=== PATIENT | male | born 1990 | race Caucasian/White ===

== ENCOUNTER 2019-10-22 12:57 | Emergency (ER) | payer BC, SELFPAY ==
[2019-10-22 13:04] VITALS: BP 137/88; PULSE 81; RESP 16; TEMP 36.7; O2SAT 99
--- NOTE | 2019-10-22 13:30 | ED.BACK ---
HPI - Back Pain/Injury General Chief Complaint: Back Pain/Injury Stated Complaint: pain from neck to legs Time Seen by Provider: 10/22/19 13:22 Source: patient and RN notes reviewed Mode of arrival: ambulatory Limitations: no limitations History of Present Illness HPI Narrative: Patient presents today complaining of pain to the left neck and left hip radiating to the left foot. Last night he fell headfirst down some stairs at home and his fall was halted when his foot caught on a stair. Denies head injury or loss of consciousness.Denies numbness or tingling in the extremities. Denies any loss of bowel or bladder control. Denies headache, dizziness, vision changes, nausea or vomiting. He currently rates his neck and hip pain 7/10, which increases with movement. He has not tried any [id number] medications at home, however, was given an unknown muscle relaxer by family member and states it did help last night. MD elicited complaint: back pain and fall Related Data Allergies Allergy/AdvReac Type Severity Reaction Status Date / Time No Known Allergies Allergy Verified 10/22/19 13:12 Review of Systems Review of Systems: Narrative: CONSTITUTIONAL: Denies body aches, fever, chills, or sweats. EYES: Denies visual changes, redness, or discharge. ENT: Denies rhinorrhea, congestion, sore throat, or otalgia. CARDIOVASCULAR: Denies chest pain, palpitations, or edema. RESPIRATORY: Denies cough or dyspnea. GASTROINTESTINAL: Denies abdominal pain, nausea, vomiting, or diarrhea. GENITOURINARY: Denies dysuria or hematuria. SKIN: Denies rash, itching, or wounds. MUSCULOSKELETAL:+Neck pain, left hip pain NEUROLOGIC: Denies headache, numbness, tingling, or weakness. PSYCH: Denies depression or anxiety. PMFSH Comments At time of signature, I have reviewed and agree with nursing past medical, surgical, social and family history unless otherwise noted. Please see nursing chart for further information. There is no relevant family history pertinent to the presenting complaint Exam Narrative: Exam Narrative: GENERAL: Well-appearing, well-nourished, and in no acute distress. HEAD: Normocephalic, atraumatic. EYES: EOMI. PERRL. No redness or drainage. Conjunctivae normal. ENT: Mucous membranes pink and moist. NECK: Normal AROM. Supple. No lymphadenopathy. Left cervical paraspinal muscle tenderness that extends to superior shoulder. Full range of motion of the shoulder with slight increased pain in the neck. Distal sensation intact. Capillary refill normal. Radial pulse normal. Hand service loss control consultant equal and strong. CHEST: No respiratory distress. Clear to auscultation. HEART: Regular rate and rhythm. No murmur appreciated. Normal peripheral pulses. ABDOMEN: Soft, nontender, nondistended, normal active bowel sounds. MUSCULOSKELETAL: No bony or muscular tenderness of the thoracic or lumbar spine. Patient some mild tenderness to the lateral left hip. Decreased AROM due to severe pain with full extension of the knee and flexion of the hip. No ecchymosis or swelling noted.Distal sensation intact. Saddle sensation intact. Capillary refill normal. Pedal pulses normal. Foot push and pulls equal and strong. EXTREMITIES: Normal range of motion. No edema. SKIN: Warm, dry, no rash. Capillary refill normal. Normal skin turgor. NEURO: No focal deficits. Alert and oriented x3. Gait steady. PSYCH: Normal affect. No signs of depression or anxiety. Course Vital Signs Vital signs: Vital Signs Temperature 98.1 F 10/22/19 13:04 Pulse Rate 81 10/22/19 13:04 Respiratory Rate 16 10/22/19 13:04 Blood Pressure 137/88 10/22/19 13:04 Pulse Oximetry 99 10/22/19 13:04 Temperature 98.1 F 10/22/19 13:04 Pulse Rate 81 10/22/19 13:04 Respiratory Rate 16 10/22/19 13:04 Blood Pressure 137/88 10/22/19 13:04 Pulse Oximetry 99 10/22/19 13:04 Reviewed. Pt has been instructed to follow up with his PCP regarding his elevated blood press
== END 2019-10-22 13:36 | disposition home or self-care (01) ==
PROVIDERS: Emergency Provider Nurse Practitioner
DX: S16.1XXA Strain of muscle, fascia and tendon at neck level, initial encounter (principal); S76.012A Strain of muscle, fascia and tendon of left hip, initial encounter; M54.32 Sciatica, left side; W10.9XXA Fall (on) (from) unspecified stairs and steps, initial encounter
CPT/HCPCS: 99213; G0463

== ENCOUNTER 2020-02-18 08:53 | Emergency (ER) | payer BC, SELFPAY ==
--- NOTE | ~2020-02-18 | CT_ITS ---
EXAMINATION: CT abdomen pelvis w con DATE: 02/18/2020 09:51 INDICATION: Left lower quadrant abdominal pain, nausea and vomiting. TECHNIQUE: Computed tomography (CT) of the abdomen and pelvis was performed with 100 mL Omnipaque-350 intravenous contrast. Automated exposure control and iterative reconstruction technique were employe d. The dose-length product was 385.86 mGy-cm. COMPARISON: None FINDINGS: Lower lung zones are clear. Heart size is normal. No pericardial or pleural effusion. Liver, gallblad ekta, spleen, pancreas, bilateral adrenal glands and right kidney are normal. 3 mm obstructing stone i n the distal left ureter approximately 2.5 cm from the ureterovesicular junction with mild left hydro ureteronephrosis, minimal left perinephric stranding and delayed left nephrogram. There is an additio nal 5 mm stone in a lower pole calyx of the left kidney. Bowels including the appendix are normal. Bl adder is normal. No free intraperitoneal gas or fluid. No pathologically enlarged abdominal or pelvic lymphadenopathy. Mild bilateral hip osteoarthritis. Small bone island at the right femoral head. IMPRESSION: 1. Left nephrolithiasis with obstructing 3 mm distal left ureteral stone and mild left hydroureterone phrosis. Correlate with urinalysis to exclude associated urinary tract infection. Reviewed, dictated and finalized at location B. IMPRESSION: 1. Left nephrolithiasis with obstructing 3 mm distal left ureteral stone and mi ld left hydroureteronephrosis. Correlate with urinalysis to exclude associated urinary tract infection.
[2020-02-18 09:11] VITALS: BP 143/99; PULSE 90; RESP 16; TEMP 36.1; O2SAT 97
[2020-02-18 09:18] LABS: Basophils Absolute Auto 0.1 K/mm3 (0.0-0.1); Basophils Percent Auto 0.5 % (0.2-1.2); Eosinophils Absolute Auto 0.1 K/mm3 (0-0.3); Eosinophils Percent Auto 0.5 % (0-4.4); Hematocrit 45.7 % (42.0-52.0); Hemoglobin 15.9 g/dL (14.0-18.0); Immature Granulocyte Percent A 0.9 % (0-0.5); Lymphocytes Absolute Auto 1.72 K/mm3 (0.9-3.2); Lymphocytes Percent Auto 15.6 % (18.3-44.2); Mean Corpuscular HGB Conc 34.8 g/dl (32-36); Mean Corpuscular Hemoglobin 28.9 pg (26-34); Mean Corpuscular Volume 82.9 fl (80-100); Mean Platelet Volume 10.1 fl (7.4-10.4); Monocytes Absolute Auto 0.7 K/mm3 (0.1-0.6); Monocytes Percent Auto 6.7 % (2.6-8.5); Neutrophils Absolute Auto 8.3 K/mm3 (1.3-6.7); Neutrophils Percent Auto 75.8 % (45.5-73.1); Platelet Count Result 204 k/mm3 (150-375); Red Blood Count 5.51 M/mm3 (4.6-6.20); Red Cell Distribution Width 11.9 % (11.5-14.5)
[2020-02-18 09:30] LABS: Alanine Aminotransferase 45 U/L (4-50); Albumin Level 4.5 g/dL (3.5-5.1); Alkaline Phosphatase 83 U/L (38-126); Anion Gap 9 mmol/L (8-16); Aspartate Amino Transferase 28 U/L (17-59); Bilirubin,Total 0.6 mg/dL (0.2-1.3); Blood Urea Nitrogen 12 mg/dL (9-20); Carbon Dioxide 27 mmol/L (22-30); Chloride 101 mmol/L (98-107); Estimated CRCL calculation 84 ml/min; Estimated Glomerular Filt Rate > 60; Glucose 125 mg/dL (75-110); Lipase 68 U/L (23-300); Potassium 4.1 mmol/L (3.4-5.0); Sodium 137 mmol/L (137-145)
--- NOTE | 2020-02-18 10:03 | ED.GENADULT ---
HPI - General Adult General Chief complaint: Abdominal Pain Stated complaint: poss kidney stone Time Seen by Provider: 02/18/20 09:05 Source: patient Mode of arrival: ambulatory Limitations: no limitations History of Present Illness HPI narrative: Left lower quadrant pain started at 1 AM. Radiating to left testicle and penis, patient had similar symptoms 2 weeks ago with a diagnosis of kidney stone. Patient reports no fever, no chills, he reports nausea and vomiting. Patient does not take medication at home. Related Data Allergies Allergy/AdvReac Type Severity Reaction Status Date / Time No Known Allergies Allergy Verified 02/18/20 09:17 Review of Systems Review of Systems: Narrative: CONSTITUTIONAL: Denies fever, chills, or sweats. EYES: Denies visual changes, redness, or discharge. ENT: Denies rhinorrhea, congestion, sore throat, or otalgia. CARDIOVASCULAR: Denies chest pain, palpitations, or edema. RESPIRATORY: Denies cough or dyspnea. GASTROINTESTINAL: Denies abdominal pain, nausea, vomiting, or diarrhea. GENITOURINARY: Denies dysuria or hematuria. SKIN: Denies rash or itching. MUSCULOSKELETAL: Denies back pain, joint pain, or myalgia. NEUROLOGIC: Denies headache, numbness, or weakness. PSYCHIATRIC: Denies anxiety or depression. [facility] Past Medical History Medical History (Updated 02/18/20 @ 10:07 by Mil Brower MD) Kidney stone Social History Social History (Updated 02/18/20 @ 10:05 by Mil Brower MD) Social History: Denies smoking or drinking Smoking status: Never smoker Second hand tobacco smoke exposure: No Alcohol intake: never Substance use: never Exam Narrative: Exam Narrative: General appearance: Well-developed, well-nourished Skin: Normal color Head: Normocephalic, nontraumatic Eyes: Clear conjunctiva ENT: Oropharynx normal, ears normal, nose normal Neck: Supple, nontender Chest and respiratory: Airway patent, no respiratory distress, no accessory muscle use Heart: Regular rate/rhythm Abdomen: Soft, mild tenderness left lower quadrant and left flank, no organomegaly, quiet bowel sounds Vascular: Normal peripheral pulses, normal capillary refill. 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, no gross motor deficit Course Course Emergency Course: Stable, improving Vital Signs Vital signs: Vital Signs Temperature 36.1 C L 02/18/20 09:11 Pulse Rate 90 02/18/20 09:11 Respiratory Rate 16 02/18/20 09:11 Blood Pressure 143/99 H 02/18/20 09:11 Pulse Oximetry 97 02/18/20 09:11 Temperature 36.1 C L 02/18/20 09:11 Pulse Rate 90 02/18/20 09:11 Respiratory Rate 16 02/18/20 09:11 Blood Pressure 143/99 H 02/18/20 09:11 Pulse Oximetry 97 02/18/20 09:11 Medical Decision Making MDM Narrative Medical decision making narrative: Kidney stone is my concern Labs, UA, CT abdomen and pelvis, IV Toradol and Zofran ordered. Further plan to follow Differential Diagnosis Differential Diagnosis: Kidney stone, constipation, urinary tract infection Vital Signs Vital Signs: Vital Signs Temperature 36.1 C L 02/18/20 09:11 Pulse Rate 90 02/18/20 09:11 Respiratory Rate 16 02/18/20 09:11 Blood Pressure 143/99 H 02/18/20 09:11 Pulse Oximetry 97 02/18/20 09:11 Temperature 36.1 C L 02/18/20 09:11 Pulse Rate 90 02/18/20 09:11 Respiratory Rate 16 02/18/20 09:11 Blood Pressure 143/99 H 02/18/20 09:11 Pulse Oximetry 97 02/18/20 09:11 Lab Data Result diagrams: 02/18/20 09:11 02/18/20 09:11 Labs: Lab Results 02/18/20 02/18/20 Range/Units 09:11 09:11
[2020-02-18] MEDS: KETOROLAC 30 MG/ML VIAL (*BKC) IV PUSH (10:16)
[2020-02-18] MEDS: ONDANSETRON INJ 4 MG/2 ML VIAL IV PUSH (10:16)
[2020-02-18 10:55] LABS: Add Urine Microscopic? YES; Appearance Urine Clear (Clear); Bacteria Urine Trace /hpf; Bilirubin Urine Negative (Negative); Blood Urine 3+ (Negative); Calcium Oxalate Crystals Urine Present /hpf; Color Urine Yellow (Yellow); Glucose Urine UA Negative (Negative); Ketones Urine Negative (Negative); Leukocyte Esterase Ur Trace LEU/UL (Negative); Mucus Urine Few /lpf; Nitrate Urine Negative (Negative); Protein Urine 1+ mg/dL (Negative); RBC Urine 21-50 /hpf (0-2); Squamous Epithelial Cell Urine Rare /hpf (Few); Urobilinogen Urine Negative mg/dL (<2.0)
[2020-02-18 10:56] LABS: Specific Grav Ur 1.057 (1.001-1.035)
== END 2020-02-18 10:47 | disposition home or self-care (01) ==
PROVIDERS: Emergency Provider Emergency Medicine
DX: N13.2 Hydronephrosis with renal and ureteral calculous obstruction (principal)
CPT/HCPCS: 36415; 74177; 80053; 81001; 83690; 85025; 87086; 96374; 96375; 99284; J1885; J2405; Q9967

== ENCOUNTER 2021-09-30 11:03 | Emergency (ER) | payer BC, SELFPAY ==
--- NOTE | 2021-09-30 11:04 | ED.FEVER ---
HPI - Fever General Chief Complaint: Upper Respiratory Infection Stated Complaint: fever Time Seen by Provider: 09/30/21 11:22 Source: patient and RN notes reviewed Mode of arrival: ambulatory Limitations: no limitations History of Present Illness HPI Narrative: 31-year-old male presents with concern for fever, headache, nasal congestion, body aches that started overnight. He reports his son has similar symptoms. He denies cough or shortness of breath. Denies nausea, vomiting, diarrhea. MD elicited complaint: fever Related Data Home Medications Medication Instructions Recorded Confirmed tramadol mg 09/30/21 Allergies Allergy/AdvReac Type Severity Reaction Status Date / Time No Known Allergies Allergy Verified 02/18/20 09:17 Review of Systems Review of Systems: CONSTITUTIONAL: Reports malaise, fever. EYES: Denies visual changes, redness, or discharge. ENT: Reports rhinorrhea, congestion. Denies sinus pain, otalgia or sore throat. CARDIOVASCULAR: Denies chest pain, palpitations, or edema. RESPIRATORY: Denies cough or dyspnea. GASTROINTESTINAL: Denies nausea, vomiting, diarrhea, MUSCULOSKELETAL: Reports myalgia. NEUROLOGIC: Reports headache. All systems reviewed & are unremarkable except as noted in HPI and below PMFSH Past Medical History Medical History (Updated 09/30/21 @ 11:32 by Tahmina Cordero NP) Kidney stone Social History Social History (Updated 02/18/20 @ 10:05 by Mil Brower MD) Social History: Denies smoking or drinking Smoking status: Never smoker Second hand tobacco smoke exposure: No Alcohol intake: never Substance use: never Comments At time of signature, agree with nursing past medical, surgical, social and family history. There is no relevant family history pertinent to the presenting complaint Exam Narrative: GENERAL: Nontoxic-appearing and in no acute distress. HEAD: Normocephalic EYES: PERRLA, conjunctivae clear, sclera injected bilaterally ENT: Nares clear, clear discharge. Mucous membranes moist. TM pearly vogt with dull light reflex bilaterally; no tragal tenderness. Oropharynx not erythematous without lesions. Tonsils not enlarged and without exudate, no drooling, no hoarseness, no trismus, uvula midline. NECK: Supple. No lymphadenopathy CHEST: Clear to auscultation, breath sounds equal. No wheezing, rhonchi, rales, or stridor. No respiratory distress, speaks in full sentences. HEART: Regular rate and rhythm. No murmur heard. SKIN: Warm, dry, no rash. NEURO: Alert and oriented x3. PSYCH: Normal mood and affect Course Course Emergency Course: Patient is aware of diagnosis, understands and agrees to treatment plan. Anticipatory guidance given. Patient agrees to follow-up as directed and is aware of reasons to seek care at the emergency department. Portions of this record may have been created with voice recognition software Level of Care: Express Care Visit Vital Signs Vital signs: Reviewed. MDM - Fever MDM Narrative Medical decision making narrative: Differential diagnosis considered: Gomes virus, strep pharyngitis, allergic rhinitis, upper respiratory tract infection, sinusitis, rhinosinusitis, nasopharyngitis. viral pharyngitis, otitis media, otitis externa, pneumonia, bronchitis, viral cough syndrome, viral syndrome, and influenza. Exam findings show no acute concerns or changes; patient is non-toxic appearing and is in no distress. Patient is appropriate for outpatient treatment and follow-up. Lab Data Attestation: I reviewed the patient's lab results. Critical Care Time Critical Care Time Critical Care Time: No Discharge Plan Discharge Clinical Impression: Influenza A Patient Disposition: Home, Self-Care Condition: Stable Instructions: Influenza (ED) Additional Instructions: -Your symptoms are likely caused by a virus, and antibiotic does not cure viral illness. -Take strict precautions to prevent the spread of your virus. Be dili
[2021-09-30 11:10] VITALS: BP 124/71; PULSE 95; RESP 16; TEMP 36.6; O2SAT 98
== END 2021-09-30 11:41 | disposition home or self-care (01) ==
PROVIDERS: Emergency Provider Nurse Practitioner
DX: J10.1 Influenza due to other identified influenza virus with other respiratory manifestations (principal)
CPT/HCPCS: 87804; 99213; G0463

== ENCOUNTER 2022-01-04 14:54 | Emergency (ER) | payer BC, SELFPAY ==
[2022-01-04 15:39] VITALS: BP 144/73; PULSE 81; RESP 16; TEMP 36.6; O2SAT 100
--- NOTE | 2022-01-04 16:11 | ED.GENADULT ---
HPI - General Adult General Chief complaint: Nausea/Vomiting/Diarrhea Stated complaint: Vomiting, body ache Source: patient Limitations: no limitations History of Present Illness HPI narrative: Patient presents for evaluation of sick symptoms since yesterday. Symptoms include body aches, nausea nonproductive cough. He denies any fever, chills, vomiting, diarrhea, sore throat, shortness of breath. No recent sick contacts. He had COVID in October of this year. He has not been vaccinated for COVID. He is not taking any medications to assist with his symptoms. He missed work yesterday and is planning on taking off the rest of his work week through . He needs a note to excuse him from work. Related Data Allergies Allergy/AdvReac Type Severity Reaction Status Date / Time No Known Allergies Allergy Verified 01/04/22 15:46 Review of Systems Review of Systems: CONSTITUTIONAL: Denies fever, chills, or sweats. EYES: Denies visual changes, redness, or discharge. ENT: Denies rhinorrhea, congestion, sore throat, or otalgia. CARDIOVASCULAR: Denies chest pain, palpitations, or edema. RESPIRATORY: Reports cough. Denies shortness of GASTROINTESTINAL: Reports nausea. Denies abdominal pain, vomiting, or diarrhea. GENITOURINARY: Denies dysuria or hematuria. SKIN: Denies rash or itching. MUSCULOSKELETAL: Reports generalized body aches NEUROLOGIC: Denies headache, numbness, dizziness, or weakness. PSYCHIATRIC: Denies anxiety or depression. [facility] Past Medical History Medical History (Updated 01/04/22 @ 16:15 by GIOVANY Flowers, ) Kidney stone Surgical History Surgical History No pertinent past surgical history Family History Family History Mother Family history non-contributory Social History Social History Social History: Denies smoking or drinking Smoking status: Never smoker Second hand tobacco smoke exposure: No Alcohol intake: never Substance use: current Substance use type: marijuana Other substance usage details: social Living arrangements: with family Gender identity (if verbalized by the patient): Male Sexual Orientation (if Verbalized by the Patient): Straight or Heterosexual Spiritual care concerns: No Exam Narrative: GENERAL: Well-appearing, well-nourished, and in no acute distress. HEAD: Normocephalic, atraumatic. EYES: PERRLA and EOMI. ENT: Nares clear, no rhinorrhea or epistaxis. Mucous membranes moist. Oropharynx without tonsillar hypertrophy exudate or other lesions. Bilateral TMs pearly vogt nonbulging NECK: Supple. No adenopathy or masses. No carotid bruits or JVD CHEST: Clear to auscultation. No respiratory distress. No wheezes rales or rhonchi HEART: Regular rate and rhythm. No murmur heard. Normal peripheral pulses. ABDOMEN: Soft, nontender, nondistended, normal active bowel sounds. EXTREMITIES: Normal range of motion. No edema. SKIN: Warm, dry, no rash. NEURO: No focal deficits. Alert and oriented x3. PSYCH: Normal mood and affect. Course Course Emergency Course: This is a 31-year-old male that presented with complaints of sick symptoms. COVID and influenza were negative. Exam is consistent with acute viral syndrome. Will DC with Zofran and ibuprofen. Increase hydration. Follow-up outpatient for further evaluation and treatment return for worsening symptoms. Patient in agreement with plan of care. Level of Care: Express Care Visit Vital Signs Vital signs: Vital Signs Temperature 36.6 C 01/04/22 15:39 Pulse Rate 81 01/04/22 15:39 Respiratory Rate 16 01/04/22 15:39 Blood Pressure 144/73 H 01/04/22 15:39 Pulse Oximetry 100 01/04/22 15:39 Oxygen Delivery Room Air 01/04/22 15:39 Temperature 36.6 C 01/04/22 15:39 Pulse Rate 81 01/04/22 15:39 Res
== END 2022-01-04 16:19 | disposition home or self-care (01) ==
PROVIDERS: Emergency Provider Nurse Practitioner
DX: B34.9 Viral infection, unspecified (principal); Z20.822 Contact with and (suspected) exposure to COVID-19; Z86.16 Personal history of COVID-19
CPT/HCPCS: 87426; 87804; 99213; C9803; G0463

== ENCOUNTER 2022-01-24 13:08 | Emergency (ER) | payer BC, SELFPAY ==
[2022-01-24 13:12] VITALS: BP 137/76; PULSE 68; RESP 18; TEMP 36.3; O2SAT 100
--- NOTE | 2022-01-24 13:32 | ED.NAVMDI ---
HPI - Nausea/Vomiting/Diarrhea General Chief complaint: Nausea/Vomiting/Diarrhea Stated complaint: nausea diarhhea Time Seen by Provider: 01/24/22 13:33 Source: patient, family, RN notes reviewed and old records reviewed Mode of arrival: ambulatory Limitations: no limitations History of Present Illness HPI Narrative: 31 year old male who [facility] with complaints of nausea vomiting and diarrhea since early in the morning with last episode of nausea and vomiting diarrhea at 0600. Patient states that he and his significant other ate meat lovers pizza at local establishment last evening and they both have had nausea vomiting and diarrhea. Patient denies any fevers, chills or sweat, voices some abdominal cramping, Patient repots that he has taken some Pepto Bismol for his diarrhea and he states that he had some Zofran left over from when he had kidney stone which he took for the nausea and vomiting. MD elicited complaint: nausea, vomiting and diarrhea Description of diarrhea: watery Associated nausea: Yes Related Data Home Medications Medication Instructions Recorded Confirmed hydrocodone 5 mg-acetaminophen 325 1 tablet PO Q6-8H KIDNEY STONES 01/24/22 01/24/22 mg tablet tamsulosin 0.4 mg capsule 0.4 mg PO DAILY KIDNEY STONES 01/24/22 01/24/22 Allergies Allergy/AdvReac Type Severity Reaction Status Date / Time No Known Allergies Allergy Verified 01/24/22 13:19 Review of Systems Review of Systems: CONSTITUTIONAL: Denies fever, chills, or sweats. EYES: Denies visual changes, redness, or discharge. ENT: Denies rhinorrhea, congestion, sore throat, or otalgia. CARDIOVASCULAR: Denies chest pain, palpitations, or edema. RESPIRATORY: Denies cough or dyspnea. GASTROINTESTINAL: Positive abdominal cramping, nausea, vomiting, or diarrhea. GENITOURINARY: Denies dysuria or hematuria. SKIN: Denies rash or itching. MUSCULOSKELETAL: Denies back pain, joint pain, or myalgia. NEUROLOGIC: Denies headache, numbness, or weakness. PSYCHIATRIC: Denies anxiety or depression. All systems reviewed & are unremarkable except as noted in HPI and below PMFSH Past Medical History Medical History (Updated 01/25/22 @ 08:53 by Emelyn Andino NP) Eczema Kidney stone Surgical History Surgical History No pertinent past surgical history Family History Family History Mother Family history non-contributory Social History Social History Social History: Denies smoking or drinking Smoking status: Never smoker Second hand tobacco smoke exposure: No Alcohol intake: never Substance use: current Substance use type: marijuana Other substance usage details: social Gender identity (if verbalized by the patient): Male Sexual Orientation (if Verbalized by the Patient): Straight or Heterosexual Spiritual care concerns: No Comments At time of signature, agree with nursing past medical, surgical, social and family history. There is no relevant family history pertinent to the presenting complaint Exam Narrative: GENERAL: Well-appearing, well-nourished, and in no acute distress. HEAD: Normocephalic, atraumatic. EYES: PERRLA and EOMI. ENT: Nares clear, no rhinorrhea or epistaxis. Mucous membranes moist.TM's normal, throat pink with no lesions or exudates or tonsil swelling NECK: Supple. no lymphadenopathy CHEST: Clear to auscultation. No respiratory distress.SAO2 100% on room air HEART: Regular rate and rhythm. No murmur heard. Normal peripheral pulses. ABDOMEN: Soft, nontender tp palpation no right sided abdominal pain, some cramping with diarrhea reported, nondistended, normal active bowel sounds. EXTREMITIES: Normal range of motion. No edema. SKIN: Warm, dry, no rash. NEURO: No focal deficits. Alert and oriented x3. Course Course Level of Care: Express
== END 2022-01-24 13:50 | disposition home or self-care (01) ==
PROVIDERS: Emergency Provider Registered Nurse
DX: K52.9 Noninfective gastroenteritis and colitis, unspecified (principal)
CPT/HCPCS: 99213; G0463

== ENCOUNTER 2022-03-21 12:52 | Emergency (ER) | payer BC, SELFPAY ==
[2022-03-21 13:02] VITALS: BP 153/81; PULSE 91; RESP 16; TEMP 36.7; O2SAT 100
--- NOTE | 2022-03-21 13:37 | ED.URI ---
HPI - URI/Sore Throat General Chief Complaint: Upper Respiratory Infection Stated Complaint: Bodyache/Sinus Congestion Time Seen by Provider: 03/21/22 13:38 Source: patient and RN notes reviewed Mode of arrival: ambulatory Limitations: no limitations History of Present Illness HPI Narrative: 31-year-old male presented for complaint of sinus pressure and congestion for 5 days. Endorses some body aches, difficulty sleeping and sore throat. He has been taking NyQuil for symptoms. Denies shortness of breath, wheezing, nausea, vomiting, diarrhea, fevers or chills. Denies sick contacts. MD elicited complaint: cough Related Data Home Medications Medication Instructions Recorded Confirmed No Home Medications 03/21/22 03/21/22 Allergies Allergy/AdvReac Type Severity Reaction Status Date / Time No Known Allergies Allergy Verified 03/21/22 13:20 Review of Systems Review of Systems: CONSTITUTIONAL: Endorses malaise, denies chills, sweats, fever EYES: Denies visual changes, redness, or discharge ENT: Reports rhinorrhea, congestion, sinus pain, denies otalgia CARDIOVASCULAR: Denies chest pain, palpitations, edema RESPIRATORY: Reports cough, post nasal drainage. Denies dyspnea GASTROINTESTINAL: Denies abdominal pain, nausea, vomiting, diarrhea MUSCULOSKELETAL: Endorses myalgia NEUROLOGIC: reports headache PMFSH Past Medical History Medical History Eczema Kidney stone Surgical History Surgical History No pertinent past surgical history Family History Family History Mother Family history non-contributory Social History Social History Social History: Denies smoking or drinking Smoking status: Never smoker Second hand tobacco smoke exposure: No Alcohol intake: never Substance use: current Substance use type: marijuana Other substance usage details: social Gender identity (if verbalized by the patient): Male Sexual Orientation (if Verbalized by the Patient): Straight or Heterosexual Spiritual care concerns: No Exam Narrative: GENERAL: Ill-appearing, nontoxic EYES: PERRLA, conjunctivae clear, watery eyes ENT: Mucous membranes moist. TMs pearly vogt with dull light reflex bilaterally; no tragal tenderness. Oropharynx erythematous without lesions or exudate, no drooling, no hoarseness, no trismus, uvula midline. No tripod positioning, muffled voice, soft palate or pharyngeal wall bulging NECK: Supple. No lymphadenopathy CHEST: Clear to auscultation, breath sounds equal. No respiratory distress, speaks in full sentences. HEART: Regular rate and rhythm. No murmur heard. SKIN: Warm, dry, no rash. NEURO: Alert and oriented x3. Course Course Emergency Course: Patient is aware of diagnosis, understands and agrees to treatment plan. Anticipatory guidance given. Patient agrees to follow-up as directed and is aware of reasons to seek care at the emergency department. Portions of this record may have been created with voice recognition software Level of Care: Express Care Visit Vital Signs Vital signs: Vital Signs Temperature 98.0 F 03/21/22 13:02 Pulse Rate 91 03/21/22 13:02 Respiratory Rate 16 03/21/22 13:02 Blood Pressure 153/81 H 03/21/22 13:02 Pulse Oximetry 100 03/21/22 13:02 Oxygen Delivery Room Air 03/21/22 13:02 Temperature 98.0 F 03/21/22 13:02 Pulse Rate 91 03/21/22 13:02 Respiratory Rate 16 03/21/22 13:02 Blood Pressure 153/81 H 03/21/22 13:02 Pulse Oximetry 100 03/21/22 13:02 Oxygen Delivery Room Air 03/21/22 13:02 reviewed MDM - URI/Sore Throat MDM Narrative Medical decision making narrative: Flu neg, reviewed with pt. Advised supportive measures and signs/symptoms to go to the ER. Pt is appropriate fo
== END 2022-03-21 13:52 | disposition home or self-care (01) ==
PROVIDERS: Emergency Provider Nurse Practitioner Family
DX: J06.9 Acute upper respiratory infection, unspecified (principal)
CPT/HCPCS: 87804; 99213; G0463

== ENCOUNTER 2022-04-11 11:54 | Emergency (ER) | payer BC, SELFPAY ==
--- NOTE | 2022-04-11 11:57 | ED.URI ---
HPI - URI/Sore Throat General Chief Complaint: Upper Respiratory Infection Stated Complaint: Sore Throat/Congestion Time Seen by Provider: 04/11/22 11:57 Source: patient and RN notes reviewed History of Present Illness HPI Narrative: Patient is a 31-year-old male who presents the urgent care with complaints of sore throat and congestion. Patient states that started yesterday and he has been taking NyQuil. States that he went to work today and they told him that he needed a work note for calling off. Patient denies any fever, nausea, vomiting. Denies of any ill exposures. No other acute complaints. No acute distress noted. Patient aware of the plan of care. Some parts of this dictation were generated by voice recognition software and may contain typographical and/or grammatical inaccuracies. Related Data Home Medications Medication Instructions Recorded Confirmed No Home Medications 03/21/22 03/21/22 Allergies Allergy/AdvReac Type Severity Reaction Status Date / Time No Known Allergies Allergy Verified 04/11/22 12:14 Review of Systems Review of Systems: CONSTITUTIONAL: Denies fever, chills, or sweats. EYES: Denies visual changes, redness, or discharge. ENT: Reports of sore throat and sinus congestion CARDIOVASCULAR: Denies chest pain, palpitations, or edema. RESPIRATORY: Denies cough or dyspnea. GASTROINTESTINAL: Denies abdominal pain, nausea, vomiting, or diarrhea. GENITOURINARY: Denies dysuria or hematuria. SKIN: Denies rash or itching. MUSCULOSKELETAL: Denies back pain, joint pain, or myalgia. NEUROLOGIC: Denies headache, numbness, or weakness. All other systems reviewed are negative, except as documented in HPI. [facility] Past Medical History Medical History Eczema Kidney stone Surgical History Surgical History No pertinent past surgical history Family History Family History Mother Family history non-contributory Social History Social History Social History: Denies smoking or drinking Smoking status: Never smoker Second hand tobacco smoke exposure: No Alcohol intake: never Substance use: current Substance use type: marijuana Other substance usage details: social Gender identity (if verbalized by the patient): Male Sexual Orientation (if Verbalized by the Patient): Straight or Heterosexual Spiritual care concerns: No Comments At the time of my signature, I reviewed and agree with the nursing past medical, surgical, social, and family history. There is no relevant family history pertinent to the patient complaint. Exam Narrative: GENERAL: This is a well-nourished, well-developed patient, in no apparent distress. HEAD: normocephalic, atraumatic. EYES: PERRL. Sclera clear/white. Vision is grossly intact. EARS: External ears normal, auditory canals clear and without drainage, TMs normal without perforation. Hearing grossly intact. NOSE: External nose normal with no obvious nasal discharge, nares without redness, no rhinorrhea. THROAT: Mucous membranes moist, posterior pharynx clear. Moderate postnasal drainage NECK: Neck supple, non-tender without lymphadenopathy CARDIOVASCULAR: Regular rate and rhythm without murmurs, gallops, or rubs. RESPIRATORY: Clear to auscultation. Breath sounds equal bilaterally. No wheezes, rales, or rhonchi. SKIN: warm, intact with no suspicious lesions or rash, good texture and turgor. NEURO: awake, alert, and oriented to person, place and time. There were no obvious focal neurologic abnormalities. EXTREMITIES: No clubbing, cyanosis, or edema. Course Course Level of Care: Express Care Visit Vital Signs Vital signs: Vital Signs Temperature 97.8 F 04/11/22 11:58 Pulse Rate 85 04/11/22 11:58 Respiratory Rate 20 10/
[2022-04-11 11:58] VITALS: BP 126/82; PULSE 85; RESP 20; TEMP 36.6; O2SAT 99
== END 2022-04-11 12:20 | disposition home or self-care (01) ==
PROVIDERS: Emergency Provider Nurse Practitioner Family
DX: J02.9 Acute pharyngitis, unspecified (principal); L30.9 Dermatitis, unspecified; Z87.442 Personal history of urinary calculi
CPT/HCPCS: 87081; 87880; 99213; G0463

== ENCOUNTER 2022-06-29 12:06 | Emergency (ER) | payer BC, SELFPAY ==
--- NOTE | 2022-06-29 12:09 | ED.URI ---
HPI - URI/Sore Throat General Chief Complaint: Upper Respiratory Infection Stated Complaint: Body Ache/Vomiting Time Seen by Provider: 06/29/22 12:09 Source: patient Mode of arrival: ambulatory Limitations: no limitations History of Present Illness HPI Narrative: Arjun is a 31-year-old male patient presenting to the clinic today with complaints of vomiting, headache,body aches, nausea, chills, and possible fever x 3 days. He reports his kids and is also had the same illness. He reports that he is concerned that he may have the flu. He has had to call into work for the symptoms. Was vomiting 6-7 times yesterday however he has not had any nausea or vomiting today. MD elicited complaint: sore throat and nasal congestion Related Data Home Medications Medication Instructions Recorded Confirmed tamsulosin 0.4 mg capsule 1 mg PO DAILY 06/29/22 06/29/22 Allergies Allergy/AdvReac Type Severity Reaction Status Date / Time No Known Allergies Allergy Verified 06/29/22 12:18 Review of Systems Review of Systems: Pertinent positives per HPI. Patient denies any rash, visual changes, dizziness, cough, shortness of breath, chest pain, palpitations, nausea, diarrhea, constipation, abdominal pain, or any urinary issues. PMFSH Past Medical History Medical History Eczema Kidney stone Surgical History Surgical History No pertinent past surgical history Family History Family History Mother Family history non-contributory Social History Social History Social History: Denies smoking or drinking Smoking status: Never smoker Second hand tobacco smoke exposure: No Alcohol intake: never Substance use: current Substance use type: marijuana Other substance usage details: social Gender identity (if verbalized by the patient): Male Sexual Orientation (if Verbalized by the Patient): Straight or Heterosexual Spiritual care concerns: No Comments At the time of my signature, I reviewed and agree with the nursing past medical, surgical, social, and family history. There is no relevant family history pertinent to the patient complaint. Exam Narrative: General: Well-developed, well nourished, in no apparent distress Head: Normocephalic, atraumatic Eyes: Pupils equally round and reactive to light bilaterally, EOM intact, sclera and conjunctive clear, no discharge, lids normal Ears: TMs intact and clear, ear canals clear, no drainage, grossly hearing normal. Nose: Nares patent, clear nasal discharge, no inflammation, no sinus tenderness. Mouth: Oral pharynx without lesions or masses, good dentition, MMM. oropharynx red Neck: Supple, trachea midline, no enlargement of anterior or posterior cervical nodes, no thyroid masses or goiter palpable. Cardio: Regular rate and rhythm, s1 and s2 normal, no murmur appreciated. Resp: Clear to auscultation bilaterally, no rhonchi, rales, wheezing or rubs Course Course Emergency Course: Portions of this record may have been created with voice recognition software. Level of Care: Express Care Visit Vital Signs Vital signs: Vital Signs Temperature 37.1 C 06/29/22 12:15 Pulse Rate 79 06/29/22 12:15 Respiratory Rate 18 06/29/22 12:15 Blood Pressure 121/82 06/29/22 12:15 Pulse Oximetry 98 06/29/22 12:15 Temperature 37.1 C 06/29/22 12:15 Pulse Rate 79 06/29/22 12:15 Respiratory Rate 18 06/29/22 12:15 Blood Pressure 121/82 06/29/22 12:15 Pulse Oximetry 98 06/29/22 12:15 Vital signs reviewed MDM - URI/Sore Throat MDM Narrative Medical decision making narrative: At the time of visit patient is resting comfortably on the exam table. COVID and influenza testing was negative in the clini
[2022-06-29 12:15] VITALS: BP 121/82; PULSE 79; RESP 18; TEMP 37.1; O2SAT 98
== END 2022-06-29 12:55 | disposition home or self-care (01) ==
PROVIDERS: Emergency Provider Nurse Practitioner Family; PCP Family Medicine
DX: B34.9 Viral infection, unspecified (principal); J06.9 Acute upper respiratory infection, unspecified; R11.2 Nausea with vomiting, unspecified; Z20.822 Contact with and (suspected) exposure to COVID-19
CPT/HCPCS: 87426; 87804; 99213; C9803; G0463

== ENCOUNTER 2022-07-27 11:32 | Emergency (ER) | payer BC, SELFPAY ==
[2022-07-27 11:36] VITALS: BP 148/82; PULSE 74; RESP 16; TEMP 36.6; O2SAT 99
--- NOTE | 2022-07-27 12:03 | ED.URI ---
HPI - URI/Sore Throat General Chief Complaint: Nausea/Vomiting/Diarrhea Stated Complaint: Vomiting/Diarrhea Time Seen by Provider: 07/27/22 12:03 Source: patient and RN notes reviewed Mode of arrival: ambulatory Limitations: no limitations History of Present Illness HPI Narrative: 31-year-old male presents concern for headache, nasal drainage, nausea, vomiting. Reports symptoms started on Monday. He reports he vomited 1 time yesterday. He denies abdominal pain or new rash, reports history of eczema. He reports general malaise. MD elicited complaint: rhinorrhea Related Data Allergies Allergy/AdvReac Type Severity Reaction Status Date / Time No Known Allergies Allergy Verified 07/27/22 11:49 Review of Systems Review of Systems: CONSTITUTIONAL: Reports malaise, denies fever. EYES: Denies visual changes, redness, or discharge. ENT: Reports rhinorrhea. Denies congestion, sinus pain, otalgia and sore throat. CARDIOVASCULAR: Denies chest pain, palpitations, or edema. RESPIRATORY: Reports cough. Denies dyspnea. GASTROINTESTINAL: Denies abdominal pain, diarrhea. Reports nausea, vomiting SKIN: Denies rash or itching. MUSCULOSKELETAL: Reports myalgia. NEUROLOGIC: Reports headache. All systems reviewed & are unremarkable except as noted in HPI and below PMFSH Past Medical History Medical History Eczema Kidney stone Surgical History Surgical History No pertinent past surgical history Family History Family History Mother Family history non-contributory Social History Social History Social History: Denies smoking or drinking Smoking status: Never smoker Second hand tobacco smoke exposure: No Alcohol intake: never Substance use: current Substance use type: marijuana Other substance usage details: social Living arrangements: with family Gender identity (if verbalized by the patient): Male Sexual Orientation (if Verbalized by the Patient): Straight or Heterosexual Spiritual care concerns: No Comments At time of signature, agree with nursing past medical, surgical, social and family history. There is no relevant family history pertinent to the presenting complaint Exam Narrative: GENERAL: Nontoxic-appearing and in no acute distress. HEAD: Normocephalic EYES: PERRLA, conjunctivae clear ENT: Nares clear, turbinates edematous and erythematous, clear discharge. Mucous membranes moist. TM pearly vogt with dull light reflex bilaterally; no tragal tenderness. Oropharynx not erythematous without lesions. Tonsils not enlarged and without exudate, no drooling, no hoarseness, no trismus, uvula midline. NECK: Supple. No lymphadenopathy CHEST: Clear to auscultation, breath sounds equal. No wheezing, rhonchi, rales, or stridor. No respiratory distress, speaks in full sentences. HEART: Regular rate and rhythm. No murmur heard. SKIN: Warm, dry, no rash. NEURO: Alert and oriented x3. PSYCH: Normal mood and affect Course Course Emergency Course: Patient is aware of diagnosis, understands and agrees to treatment plan. Anticipatory guidance given. Patient agrees to follow-up as directed and is aware of reasons to seek care at the emergency department. Portions of this record may have been created with voice recognition software Level of Care: Express Care Visit Vital Signs Vital signs: Vital Signs Temperature 97.9 F 07/27/22 11:36 Pulse Rate 74 07/27/22 11:36 Respiratory Rate 16 07/27/22 11:36 Blood Pressure 148/82 H 07/27/22 11:36 Pulse Oximetry 99 07/27/22 11:36 Oxygen Delivery Room Air 07/27/22 11:36 Temperature 97.9 F 07/27/22 11:36 Pulse Rate 74 07/27/22 11:36 Respiratory Rate 16 07/27/22 11:36 Blood Pressure 148/82 H 07/27
== END 2022-07-27 12:13 | disposition home or self-care (01) ==
PROVIDERS: Emergency Provider Nurse Practitioner; PCP Emergency Medicine
DX: J02.0 Streptococcal pharyngitis (principal); Z20.822 Contact with and (suspected) exposure to COVID-19
CPT/HCPCS: 87426; 87804; 87880; 99213; C9803; G0463

== ENCOUNTER 2022-08-11 12:40 | Emergency (ER) | payer BC, SELFPAY ==
--- NOTE | 2022-08-11 12:43 | ED.NAVMDI ---
HPI - Nausea/Vomiting/Diarrhea General Chief complaint: Nausea/Vomiting/Diarrhea Stated complaint: Dizziness/Vomiting Time Seen by Provider: 08/11/22 12:43 Source: patient and RN notes reviewed History of Present Illness HPI Narrative: Patient is a 31-year-old male who presents to urgent care with complaints of 2 episodes of vomiting and dizziness this morning. Patient states he was diagnosed with strep last week and did not finish the majority of his medications. Patient states that he did not have a sore throat at that time but was tested considering everyone in his home was positive for strep. Patient currently denies a sore throat. States he still having nausea but denies abdominal pain or diarrhea. No other acute complaints. No acute distress noted. Patient aware of the plan of care. Some parts of this dictation were generated by voice recognition software and may contain typographical and/or grammatical inaccuracies. Related Data Allergies Allergy/AdvReac Type Severity Reaction Status Date / Time No Known Allergies Allergy Verified 07/27/22 11:49 Review of Systems Review of Systems: CONSTITUTIONAL: Denies fever, chills, or sweats. EYES: Denies visual changes, redness, or discharge. ENT: Denies rhinorrhea, congestion, sore throat, or otalgia. CARDIOVASCULAR: Denies chest pain, palpitations, or edema. RESPIRATORY: Denies cough or dyspnea. GASTROINTESTINAL: Reports nausea and 2 episodes of vomiting GENITOURINARY: Denies dysuria or hematuria. SKIN: Denies rash or itching. MUSCULOSKELETAL: Denies back pain, joint pain, or myalgia. NEUROLOGIC: Reports episode dizziness All other systems reviewed are negative, except as documented in HPI. [facility] Past Medical History Medical History Eczema Kidney stone Surgical History Surgical History No pertinent past surgical history Family History Family History Mother Family history non-contributory Social History Social History Social History: Denies smoking or drinking Smoking status: Never smoker Second hand tobacco smoke exposure: No Alcohol intake: never Substance use: current Substance use type: marijuana Other substance usage details: social Living arrangements: with family Gender identity (if verbalized by the patient): Male Sexual Orientation (if Verbalized by the Patient): Straight or Heterosexual Spiritual care concerns: No Comments At the time of my signature, I reviewed and agree with the nursing past medical, surgical, social, and family history. There is no relevant family history pertinent to the patient complaint. Exam Narrative: GENERAL: This is a well-nourished, well-developed patient, in no apparent distress. HEAD: normocephalic, atraumatic. EYES: PERRL. Sclera clear/white. Vision is grossly intact. EARS: External ears normal NOSE: External nose normal with no obvious nasal discharge, nares without redness, no rhinorrhea. THROAT: Mucous membranes moist, posterior pharynx clear. NECK: Neck supple, non-tender without lymphadenopathy, masses or thyromegaly. CARDIOVASCULAR: Regular rate and rhythm without murmurs, gallops, or rubs. RESPIRATORY: Clear to auscultation. Breath sounds equal bilaterally. No wheezes, rales, or rhonchi. GASTROINTESTINAL: Abdomen soft, mild diffuse tenderness with guarding, nondistended. Bowel sounds are hyperactive. SKIN: warm, intact with no suspicious lesions or rash, good texture and turgor. NEURO: awake, alert, and oriented to person, place and time. There were no obvious focal neurologic abnormalities. EXTREMITIES: No clubbing, cyanosis, or edema. Course Course Level of Care: Express Care Visit Vital Signs Vital signs: Vital Signs Temperature 97.9 F
[2022-08-11 12:45] VITALS: BP 146/91; PULSE 77; RESP 16; TEMP 36.6; O2SAT 99
== END 2022-08-11 13:16 | disposition home or self-care (01) ==
PROVIDERS: Emergency Provider Nurse Practitioner Family; PCP Emergency Medicine
DX: R11.2 Nausea with vomiting, unspecified (principal)
CPT/HCPCS: 87081; 87880; 99213; G0463

== ENCOUNTER 2023-01-30 11:08 | Emergency (ER) | payer BC, SELFPAY ==
[2023-01-30 11:11] VITALS: BP 135/84; PULSE 78; RESP 20; TEMP 36.4; O2SAT 99
--- NOTE | 2023-01-30 11:30 | ED.SKABFB ---
HPI - Skin/Abscess/Foreign Bdy General Chief complaint: Skin/Abscess/Foreign Body Stated complaint: Rash all over History of Present Illness HPI narrative: Pt is a 32 y/o male, presents to with pruritic rash of the upper extremities, lower legs and back for the past two days. 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 He has chronic eczema of the face and notes his skin is sensitive. He denies associated pustules, vesicles or drainage from any skin surface areas. He has no other complaints and denies modifying factors. Related Data Allergies Allergy/AdvReac Type Severity Reaction Status Date / Time No Known Allergies Allergy Verified 07/27/22 11:49 Review of Systems Constitutional: Comments: negative for fevers ENT: Comments: no facial swelling, throat tongue or lip swelling Respiratory: Comments: no difficulty breathing Integumentary/Breasts: Comments: refer to [facility] Past Medical History Medical History Eczema Kidney stone Surgical History Surgical History No pertinent past surgical history Family History Family History Mother Family history non-contributory Social History Social History Social History: Denies smoking or drinking Smoking status: Never smoker Second hand tobacco smoke exposure: No Alcohol intake: never Substance use: current Substance use type: marijuana Other substance usage details: social Living arrangements: with family Gender identity (if verbalized by the patient): Male Sexual Orientation (if Verbalized by the Patient): Straight or Heterosexual Spiritual care concerns: No Exam Const: General: healthy appearing, no acute distress and alert Nutritional Appearance: well nourished Orientation/consciousness: patient oriented x3 Limitations: no limitations HENMT: Head: normal to inspection Ears: external ears normal Face and sinus: normal facial exam and sinuses nontender Teeth and gingiva: dentition normal Throat: posterior oropharynx normal Eyes: Conjunctivae: conjunctivae normal EOM: EOMs intact bilaterally Neck: Neck: normal visual inspection, no lymphadenopathy and no meningeal signs Resp: Effort & Inspection: normal respiratory effort Auscultation: clear to auscultation bilaterally Cardio: Rate: regular rate Rhythm: regular rhythm Skin: Other: Pt has a fine papular rash over the forearms ventrally, the upper back and lower legs medially. Rash all appears similar and nearly mirrors bilaterally. No pustules, vesicles or lymphangitis noted. Abdomen, upper chest and upper legs are spared Neuro: General: patient oriented x3, moves all extremities, no meningeal signs, no focal motor deficits and CN's II-XI intact bilaterally Course Course Emergency Course: I have discussed possible causes of this rash eruption. Plant allergy exposure versus contact allergy from the barrier clothing he is wearing at work. Will treat with oral steroid taper, adding OTC antihistamines, aquaphor for topical relief or Caladryl. Fu with PCP if symptoms are not improving in 3-5 days. Pt is agreeable with plan. Level of Care: Express Care Visit ([id number]) Vital Signs Vital signs: Vital Signs Temperature 36.4 C L 01/30/23 11:11 Pulse Rate 78 01/30/23 11:11 Respiratory Rate 20 01/30/23 11:11 Blood Pressure 135/84 01/30/23 11:11 Pulse Oximetry 99 01/30/23 11:11 Oxygen Delivery Room Air 01/30/23 11:11 Temperature 36.4 C L 01/30/23 11:11 Pulse Rate 78 01/30/23 11:11 Respiratory Rate 20 01/30/23 11:11 Blood Pressure 135/84 01/30/23 11:11 Pulse Oximetry 99 01/30/23 11:11 Oxygen Delivery Room
== END 2023-01-30 11:44 | disposition home or self-care (01) ==
PROVIDERS: Emergency Provider Nurse Practitioner Family
DX: L23.9 Allergic contact dermatitis, unspecified cause (principal)
CPT/HCPCS: 99213; G0463

== ENCOUNTER 2023-05-27 18:49 | Emergency (ER) | payer BC, SELFPAY ==
[2023-05-27 18:55] VITALS: BP 140/96; PULSE 81; RESP 16; TEMP 36.4; O2SAT 99
--- NOTE | 2023-05-27 19:25 | ED.SKABFB ---
HPI - Skin/Abscess/Foreign Bdy General Chief complaint: Skin/Abscess/Foreign Body Stated complaint: Rash Time Seen by Provider: 05/27/23 19:20 Source: patient, RN notes reviewed and old records reviewed Mode of arrival: ambulatory Limitations: no limitations History of Present Illness HPI narrative: 32-year-old male presents to Express Care with him pain of rash to left shoulder. Patient states started having pain on shoulder about 4 days ago then 2 days ago noted a rash. States pain rash is painful but itchy at the same time. Patient denies hi MD complaint: rash Onset (ago): day(s) (2) Related Data Home Medications Medication Instructions Recorded Confirmed cyclobenzaprine 5 mg tablet 5 mg PO TID PRN MUSCLE SPASMS 05/27/23 05/27/23 hydrocodone 5 mg-acetaminophen 325 1 tablet PO Q4H PRN Pain (Scale 05/27/23 05/27/23 mg tablet Score 7-10) tamsulosin 0.4 mg capsule (Flomax) 0.4 mg PO DAILY 05/27/23 05/27/23 Allergies Allergy/AdvReac Type Severity Reaction Status Date / Time No Known Allergies Allergy Verified 05/27/23 19:06 Review of Systems Constitutional: Constitutional: Reports no additional constitutional complaints Eyes: Eyes: Reports no additional eye complaints ENT: Reports system reviewed and no additional complaints, except as documented Cardiovascular: Cardiovascular: Reports no additional cardiovascular complaints Respiratory: Respiratory: Reports no additional respiratory complaints Integumentary/Breasts: Skin/Breast: Reports as per HPI and Reports rash Neurologic: Reports system reviewed and no additional complaints, except as documented [facility] Past Medical History Medical History Eczema Kidney stone Surgical History Surgical History No pertinent past surgical history Family History Family History Mother Family history non-contributory Social History Social History Social History: Denies smoking or drinking Smoking status: Never smoker Second hand tobacco smoke exposure: No Alcohol intake: never Substance use: current Substance use type: marijuana Other substance usage details: social Living arrangements: with family Gender identity (if verbalized by the patient): Male Sexual Orientation (if Verbalized by the Patient): Straight or Heterosexual Spiritual care concerns: No Comments At the time of my signature, I reviewed and agree with the nursing past medical, surgical, social, and family history. There is no relevant family history pertinent to the patient complaint. Exam Const: General: cooperative, healthy appearing, no acute distress and well nourished Nutritional Appearance: well nourished Orientation/consciousness: patient oriented x3 Limitations: no limitations HENMT: Head: normal to inspection and normocephalic Ears: external ears normal, TM's normal bilaterally, mastoids normal and Abnormal EAC present Face/Nose/Sinus: normal facial exam Face and sinus: normal facial exam Mouth: Yes Normal oral and palatal mucosa present, Yes oropharynx normal and Yes moist mucous membranes Throat: posterior oropharynx normal, tonsils normal, uvula midline and no uvular edema Eyes: General: appearance normal, both eyes and all related structures Sclera: sclerae normal Pupils: Equal, round and reactive pupils present Resp: Effort & Inspection: normal respiratory effort, able to speak in complete sentences, no audible wheezes, no cough, no respiratory distress and no retractions Cardio: Rate: regular rate Skin: Rashes: rashes noted ( macular vesicular rash noted to left shoulder, neck, upper back) Neuro: General: patient oriented x3 Cranial nerves: Yes Equal, round and reactive pupils present Psych: Appearance: grossly normal Co
== END 2023-05-27 19:34 | disposition home or self-care (01) ==
PROVIDERS: Emergency Provider Registered Nurse
DX: B02.9 Zoster without complications (principal); F12.90 Cannabis use, unspecified, uncomplicated
CPT/HCPCS: 99213; G0463

== ENCOUNTER 2024-02-29 08:47 | Emergency (ER) | payer SELFPAY ==
[2024-02-29 08:59] VITALS: BP 135/78; PULSE 73; RESP 20; TEMP 36.6; O2SAT 100
--- NOTE | 2024-02-29 09:28 | ED.URI ---
HPI - URI/Sore Throat General Chief Complaint: Upper Respiratory Infection Stated Complaint: throat History of Present Illness HPI Narrative: 33-year-old male presented for complaint of sore throat. Onset 6 hours. Endorses son has strep throat. He denies any associated symptoms. Has been taking cough drops for symptoms. He was advised by his employer to seek evaluation. Related Data Allergies Allergy/AdvReac Type Severity Reaction Status Date / Time No Known Allergies Allergy Verified 05/27/23 19:06 Review of Systems Review of Systems: CONSTITUTIONAL: Denies body aches, fever, chills, or sweats. EYES: Denies visual changes, redness, or discharge. ENT: reports sore throat Denies rhinorrhea, congestion, or otalgia. CARDIOVASCULAR: Denies chest pain, palpitations, or edema. RESPIRATORY: Denies dyspnea. GASTROINTESTINAL: Denies abdominal pain, nausea, vomiting, or diarrhea. SKIN: Denies rash, itching, or wounds. MUSCULOSKELETAL: Denies back pain, joint pain, or myalgia. NEUROLOGIC: Denies headache PMFSH Past Medical History Medical History Eczema Kidney stone Surgical History Surgical History No pertinent past surgical history Family History Family History Mother Family history non-contributory Social History Social History Social History: Denies smoking or drinking Smoking status: Never smoker Second hand tobacco smoke exposure: No Alcohol intake: never Substance use: current Substance use type: marijuana Other substance usage details: social Living arrangements: with family Gender identity (if verbalized by the patient): Male Sexual Orientation (if Verbalized by the Patient): Straight or Heterosexual Spiritual care concerns: No Exam Narrative: GENERAL: mildly Ill-appearing, no acute distress. EYES: conjunctivae clear ENT: Mucous membranes moist. TMs pearly vogt with normal light reflex bilaterally; no tragal tenderness. Oropharynx erythematous without lesions. Tonsils enlarged 1+ and without exudate. No drooling, no hoarseness, no trismus, uvula midline. No tripod positioning, hot potato voice, or soft palate swelling. NECK: Supple. No lymphadenopathy CHEST: Clear to auscultation, breath sounds equal. No respiratory distress, speaks in full sentences. HEART: Regular rate and rhythm. No murmur heard. SKIN: Warm, dry, no rash. NEURO: Alert and oriented x3. Course Course Emergency Course: Patient is aware of diagnosis, understands and agrees to treatment plan. Anticipatory guidance given. Patient agrees to follow-up as directed and is aware of reasons to seek care at the emergency department. Portions of this record may have been created with voice recognition software Level of Care: Express Care Visit Vital Signs Vital signs: Vital Signs Temperature 97.9 F 02/29/24 08:59 Pulse Rate 73 02/29/24 08:59 Respiratory Rate 20 02/29/24 08:59 Blood Pressure 135/78 02/29/24 08:59 Pulse Oximetry 100 02/29/24 08:59 Oxygen Delivery Room Air 02/29/24 08:59 Temperature 97.9 F 02/29/24 08:59 Pulse Rate 73 02/29/24 08:59 Respiratory Rate 20 02/29/24 08:59 Blood Pressure 135/78 02/29/24 08:59 Pulse Oximetry 100 02/29/24 08:59 Oxygen Delivery Room Air 02/29/24 08:59 MDM - URI/Sore Throat MDM Narrative Medical decision making narrative: Neg strep result reviewed with pt. Advise supportive treatments. Patient is appropriate for outpatient treatment and follow-up. Differential Diagnosis Differential diagnosis: Likely upper respiratory infection, viral infection and pharyngitis Discharge Plan Discharge Clinical Impression: Pharyngitis Patient Disposition: Home, Self-Care Condition: Stable In
[2024-02-29 09:37] LABS: EDSTREPNEGPOS1 Negative (Negative)
== END 2024-02-29 09:41 | disposition home or self-care (01) ==
PROVIDERS: Emergency Provider Nurse Practitioner Family
DX: J02.9 Acute pharyngitis, unspecified (principal); F12.90 Cannabis use, unspecified, uncomplicated
CPT/HCPCS: 87081; 87880; 99213; G0463

== ENCOUNTER 2024-03-04 12:33 | Emergency (ER) | payer SELFPAY ==
[2024-03-04 12:40] VITALS: BP 137/98; PULSE 87; RESP 20; TEMP 36.6; O2SAT 100
--- NOTE | 2024-03-04 12:47 | ED.URI ---
HPI - URI/Sore Throat General Chief Complaint: Upper Respiratory Infection Stated Complaint: Fever/Chest Congestion/Congestion/Body Aches Time Seen by Provider: 03/04/24 12:52 Source: patient and RN notes reviewed Mode of arrival: ambulatory Limitations: no limitations History of Present Illness HPI Narrative: 33 y/o male presented for c/o headache, body aches, sinus pressure/congestion, cough, fever/chills. Onset 4 days. Pt was seen the day prior to onset for c/o sore throat and tested neg for strep. Taking his child's left over liquid amox. States he is actually feeling better today, but his employer wanted him to be evaluated. States he had a low grade temp 99.8 at work today, and had temp up to 102 2 days ago. Denies sob, wheezing, n/v/d. MD elicited complaint: cough Related Data Home Medications Medication Instructions Recorded Confirmed No Home Medications 03/04/24 03/04/24 Allergies Allergy/AdvReac Type Severity Reaction Status Date / Time No Known Allergies Allergy Verified 03/04/24 12:37 Review of Systems Review of Systems: CONSTITUTIONAL: Endorses malaise, chills, sweats, fever EYES: Denies visual changes, redness, or discharge ENT: Reports rhinorrhea, congestion, sinus pain, otalgia, sore throat CARDIOVASCULAR: Denies chest pain, palpitations, edema RESPIRATORY: Reports cough, post nasal drainage. Denies dyspnea GASTROINTESTINAL: Denies abdominal pain, nausea, vomiting, diarrhea SKIN: Denies rash or itching MUSCULOSKELETAL: Endorses myalgia NEUROLOGIC: Denies headache PMFSH Past Medical History Medical History Eczema Kidney stone Surgical History Surgical History No pertinent past surgical history Family History Family History Mother Family history non-contributory Social History Social History Social History: Denies smoking or drinking Smoking status: Never smoker Second hand tobacco smoke exposure: No Alcohol intake: never Substance use: current Substance use type: marijuana Other substance usage details: social Living arrangements: with family Gender identity (if verbalized by the patient): Male Sexual Orientation (if Verbalized by the Patient): Straight or Heterosexual Spiritual care concerns: No Exam Narrative: GENERAL: mildly Ill-appearing, nontoxic no acute distress. EYES: conjunctivae clear ENT: Mucous membranes moist. TM pearly vogt with dull light reflex bilaterally; no tragal tenderness. Oropharynx not erythematous without lesions or exudate, no drooling, no hoarseness, no trismus, uvula midline. No tripod positioning, muffled voice, soft palate or pharyngeal wall bulging NECK: Supple. No lymphadenopathy CHEST: Clear to auscultation, breath sounds equal. No wheezing, rhonchi, rales, or stridor. No respiratory distress, speaks in full sentences. HEART: Regular rate and rhythm. No murmur heard. SKIN: Warm, dry, no rash. NEURO: Alert and oriented x3. PSYCH: Normal mood and affect Course Course Emergency Course: Patient is aware of diagnosis, understands and agrees to treatment plan. Anticipatory guidance given. Patient agrees to follow-up as directed and is aware of reasons to seek care at the emergency department. Portions of this record may have been created with voice recognition software Level of Care: Express Care Visit Vital Signs Vital signs: Vital Signs Temperature 97.8 F 03/04/24 12:40 Pulse Rate 87 03/04/24 12:40 Respiratory Rate 03/04/24 12:40 Blood Pressure 137/98 H 03/04/24 12:40 Pulse Oximetry 100 03/04/24 12:40 Oxygen Delivery Room Air 03/04/24 12:40 Temperature 97.8 F 03/04/24 12:40 Pulse Rate 87 03/04/24 12:40 Respiratory Rate 03/04/24 12:40 Blood Pressure
[2024-03-04 13:11] LABS: EDINFLUASCREEN Negative (Negative); EDINFLUBSCREEN Negative (Negative)
[2024-03-04 13:12] LABS: EDCOVIDSCREEN Negative (Negative)
== END 2024-03-04 13:10 | disposition home or self-care (01) ==
PROVIDERS: Emergency Provider Nurse Practitioner Family
DX: J06.9 Acute upper respiratory infection, unspecified (principal); Z20.822 Contact with and (suspected) exposure to COVID-19
CPT/HCPCS: 87635; 87804; 99213; G0463

== ENCOUNTER 2024-03-07 09:39 | Emergency (ER) | payer SELFPAY ==
[2024-03-07 10:00] VITALS: BP 134/98; PULSE 92; RESP 16; TEMP 36.6; O2SAT 99
--- NOTE | 2024-03-07 10:13 | ED.URI ---
HPI - URI/Sore Throat General Chief Complaint: Upper Respiratory Infection Stated Complaint: Fever/Cough Time Seen by Provider: 03/07/24 10:05 Source: patient, RN notes reviewed and old records reviewed Mode of arrival: ambulatory Limitations: no limitations History of Present Illness HPI Narrative: Patient presents today, his 3rd time this week. Patient is experiencing head and chest congestion as well as headache and mild cough. He continues to have NyQuil and Mucinex the provide some mild relief. He has tried to return to work twice and the Occupational Medicine area at his job continues to telling that he is not fit to return to work because of his cough and congestion despite the notes he has been provided from [employer]. He tried to return to work this morning and was told that he had a mild fever and that he needed to come back to urgent care to be evaluated and cleared. Related Data Home Medications Medication Instructions Recorded Confirmed No Home Medications 03/04/24 03/04/24 Allergies Allergy/AdvReac Type Severity Reaction Status Date / Time No Known Allergies Allergy Verified 03/07/24 10:00 Review of Systems Review of Systems: CONSTITUTIONAL: Denies body aches, fever, chills, or sweats. EYES: Denies visual changes, redness, or discharge. ENT: Denies rhinorrhea, sore throat, or otalgia.+ congestion CARDIOVASCULAR: Denies chest pain, palpitations, or edema. RESPIRATORY: Denies dyspnea.+ cough GASTROINTESTINAL: Denies abdominal pain, nausea, vomiting, or diarrhea. GENITOURINARY: Denies dysuria or hematuria. SKIN: Denies rash, itching, or wounds. MUSCULOSKELETAL: Denies back pain, joint pain, or myalgia. NEUROLOGIC: Denies numbness, tingling, or weakness.+ headache PSYCH: Denies depression or anxiety. PMFSH Past Medical History Medical History Eczema Kidney stone Surgical History Surgical History No pertinent past surgical history Family History Family History Mother Family history non-contributory Social History Social History Social History: Denies smoking or drinking Smoking status: Never smoker Second hand tobacco smoke exposure: No Alcohol intake: never Substance use: current Substance use type: marijuana Other substance usage details: social Living arrangements: with family Gender identity (if verbalized by the patient): Male Sexual Orientation (if Verbalized by the Patient): Straight or Heterosexual Spiritual care concerns: No Comments At time of signature, I have reviewed and agree with nursing past medical, surgical, social and family history unless otherwise noted. Please see nursing chart for further information. There is no relevant family history pertinent to the presenting complaint Exam Narrative: GENERAL: Well-appearing, well-nourished, and in no acute distress. HEAD: Normocephalic, atraumatic. EYES: EOMI. No redness or drainage. Conjunctivae normal. ENT: Mucous membranes pink and moist. Nares congested. No rhinorrhea. TMs normal bilaterally. Throat normal. Uvula midline. NECK: Normal AROM. Supple. No lymphadenopathy. CHEST: No respiratory distress. Clear to auscultation. HEART: Regular rate and rhythm. No murmur appreciated. EXTREMITIES: Normal range of motion. No edema. SKIN: Warm, dry, no rash. Capillary refill normal. Normal skin turgor. NEURO: No focal deficits. Alert and oriented x3. Gait steady. PSYCH: Normal affect. No signs of depression or anxiety. Course Course Level of Care: Express Care Visit Vital Signs Vital signs: Vital Signs Temperature 97.9 F 03/07/24 10:00 Pulse Rate 92 03/07/24 10:00 Respiratory Rate 16 03/07/24 10:00 Blood Pressure 134/98 H 0
== END 2024-03-07 10:29 | disposition home or self-care (01) ==
PROVIDERS: Emergency Provider Nurse Practitioner
DX: J06.9 Acute upper respiratory infection, unspecified (principal)
CPT/HCPCS: 99211; G0463

== ENCOUNTER 2024-04-08 08:50 | Emergency (ER) | payer OTHER, SELFPAY ==
--- NOTE | 2024-04-08 08:55 | ED.NAVMDI ---
HPI - Nausea/Vomiting/Diarrhea General Chief complaint: Upper Respiratory Infection Stated complaint: Body Aches/Diarrhea/Nausea Time Seen by Provider: 04/08/24 08:55 Source: patient Mode of arrival: ambulatory Limitations: no limitations History of Present Illness HPI Narrative: Patient is a 33-year-old male who presents with body aches, diarrhea and nausea since yesterday. Reports illness has been going around work. Was sent home by work due to being sick. Denies any fevers, congestion, cough. Related Data Allergies Allergy/AdvReac Type Severity Reaction Status Date / Time No Known Allergies Allergy Verified 03/07/24 10:00 Review of Systems Review of Systems: All systems reviewed & are unremarkable except as noted in HPI and below Constitutional: Constitutional: Reports body ache(s), Denies chills, Denies fatigue, Denies fever(s), Denies headache(s), Denies malaise and Denies weakness Eyes: Eyes: Denies blurry vision, Denies irritation and Denies loss of vision ENT: Denies otalgia, Denies headache(s), Denies nasal discharge, Denies sinus pain and Denies sore throat Cardiovascular: Cardiovascular: Denies chest pain, Denies irregular heart rhythm and Denies dyspnea Respiratory: Respiratory: Denies dyspnea Gastrointestinal: Gastrointestinal: Denies melena, Denies hematochezia, Reports GI cramping, Reports diarrhea, Reports nausea and Denies vomiting Musculoskeletal: Musculoskeletal: Denies back pain, Denies myalgias and Denies arthralgias Integumentary/Breasts: Skin/Breast: Denies pruritus and Denies rash Neurologic: Denies headache(s), Denies loss of vision and Denies weakness Psychiatric: Psychiatric: Reports no additional psychiatric complaints Endocrine: Endocrine: Denies fatigue PMFSH Past Medical History Medical History Eczema Kidney stone Surgical History Surgical History No pertinent past surgical history Family History Family History Mother Family history non-contributory Social History Social History Social History: Denies smoking or drinking Smoking status: Never smoker Second hand tobacco smoke exposure: No Alcohol intake: never Substance use: current Substance use type: marijuana Other substance usage details: social Living arrangements: with family Gender identity (if verbalized by the patient): Male Sexual Orientation (if Verbalized by the Patient): Straight or Heterosexual Spiritual care concerns: No Comments At time of signature, agree with nursing past medical, surgical, social and family history. There is no relevant family history pertinent to the presenting complaint. Exam Const: General: cooperative, healthy appearing, comfortable, no acute distress and well nourished Nutritional Appearance: well nourished Orientation/consciousness: patient oriented x3 Limitations: no limitations HENMT: Head: normal to inspection, normocephalic and atraumatic Ears: hearing grossly normal bilaterally and external ears normal Face/Nose/Sinus: Normal external nose present, normal facial exam and face symmetric Face and sinus: normal facial exam and face symmetric Mouth: Yes lip normal Eyes: General: appearance normal, both eyes and all related structures Alignment and Position: alignment normal and position normal Periorbital: periorbital findings normal Eyelids: eyelids normal Pupils: Equal, round and reactive pupils present EOM: EOMs intact bilaterally Neck: Neck: normal visual inspection, full ROM and supple Chest: Chest palpation & inspection: normal inspection of the chest Resp: Effort & Inspection: normal respiratory effort and able to speak in complete sentences Auscultation: clear to auscultation bilaterally Cardio: Rate: regular rate
[2024-04-08 08:58] VITALS: BP 124/74; PULSE 60; RESP 18; TEMP 36.4; O2SAT 100
== END 2024-04-08 09:48 | disposition home or self-care (01) ==
PROVIDERS: Emergency Provider Nurse Practitioner Family
DX: K52.9 Noninfective gastroenteritis and colitis, unspecified (principal); F12.90 Cannabis use, unspecified, uncomplicated
CPT/HCPCS: 99213; G0463

== ENCOUNTER 2024-04-11 08:10 | Emergency (ER) | payer OTHER, SELFPAY ==
--- NOTE | 2024-04-11 08:17 | ED.NAVMDI ---
HPI - Nausea/Vomiting/Diarrhea General Chief complaint: Nausea/Vomiting/Diarrhea Stated complaint: Vomiting/Nausea Time Seen by Provider: 04/11/24 08:17 Source: patient, RN notes reviewed and old records reviewed Mode of arrival: ambulatory Limitations: no limitations History of Present Illness HPI Narrative: 33-year-old male to [facility] for vomiting. Patient states that he vomited at work this morning and was sent to their medical team. Medical team evaluated patient and told him that he needed to be seen by a provider and given a note to return to work. Patient reports that he was seen here 3 days ago for nausea/vomiting and 1 episode of diarrhea on Monday. At that time, patient was given dicyclomine and Zofran and a note to return to work. patient reports that he returned to work yesterday and worked in [employer] without an issue. Patient states that at work this morning 1 time but feels fine. Patient states that he has not taken any other prescription medication that he was 3 days ago because he prefers not to take medication. Patient denies any complaints at this, requesting note to return to work. Patient resting in exam room in no acute distress. Respirations even and nonlabored. Related Data Allergies Allergy/AdvReac Type Severity Reaction Status Date / Time No Known Allergies Allergy Verified 03/07/24 10:00 Review of Systems Review of Systems: All systems reviewed & are unremarkable except as noted in HPI and below Constitutional: Constitutional: Reports no additional constitutional complaints Eyes: Eyes: Reports no additional eye complaints ENT: Reports system reviewed and no additional complaints, except as documented Cardiovascular: Cardiovascular: Reports no additional cardiovascular complaints, Denies chest pain and Denies dyspnea Respiratory: Respiratory: Reports no additional respiratory complaints, Denies cough and Denies dyspnea Gastrointestinal: Gastrointestinal: Reports vomiting (x1 ) Musculoskeletal: Musculoskeletal: Reports no additional musculoskeletal complaints Neurologic: Reports system reviewed and no additional complaints, except as documented Psychiatric: Psychiatric: Reports no additional psychiatric complaints [facility] Past Medical History Medical History Eczema Kidney stone Surgical History Surgical History No pertinent past surgical history Family History Family History Mother Family history non-contributory Social History Social History Social History: Denies smoking or drinking Smoking status: Never smoker Second hand tobacco smoke exposure: No Alcohol intake: never Substance use: current Substance use type: marijuana Other substance usage details: social Living arrangements: with family Gender identity (if verbalized by the patient): Male Sexual Orientation (if Verbalized by the Patient): Straight or Heterosexual Spiritual care concerns: No Comments At the time of my signature, I reviewed and agree with the nursing past medical, surgical, social, and family history. There is no relevant family history pertinent to the patient complaint. Exam Const: General: cooperative, healthy appearing, comfortable, no acute distress, alert and well nourished Nutritional Appearance: well nourished Orientation/consciousness: patient oriented x3 Limitations: no limitations HENMT: Head: normal to inspection Ears: external ears normal Face/Nose/Sinus: Normal external nose present, Normal nares present, normal facial exam, No erythema and No edema Face and sinus: normal facial exam, no erythema and no edema Mouth: Yes Normal oral and palatal mucosa present Eyes: General: appearance normal, both eyes and all related structu
[2024-04-11 08:37] VITALS: BP 143/89; PULSE 72; RESP 16; TEMP 36.7; O2SAT 100
[2024-04-11 08:54] LABS: EDCOVIDSCREEN Negative (Negative); EDINFLUASCREEN Negative (Negative); EDINFLUBSCREEN Negative (Negative)
== END 2024-04-11 09:07 | disposition home or self-care (01) ==
PROVIDERS: Emergency Provider Nurse Practitioner Family
DX: K52.9 Noninfective gastroenteritis and colitis, unspecified (principal); Z20.822 Contact with and (suspected) exposure to COVID-19
CPT/HCPCS: 87426; 87804; 99212; G0463

== ENCOUNTER 2024-06-21 09:48 | Emergency (ER) | payer OTHER, SELFPAY ==
[2024-06-21 10:21] VITALS: BP 139/78; PULSE 79; RESP 16; TEMP 36.8; O2SAT 100
--- NOTE | 2024-06-21 10:36 | ED.NAVMDI ---
HPI - Nausea/Vomiting/Diarrhea General Chief complaint: Nausea/Vomiting/Diarrhea Stated complaint: nausea/rash Source: patient and RN notes reviewed Mode of arrival: ambulatory Limitations: no limitations History of Present Illness HPI Narrative: 33 y/o male presented for c/o nausea and vomiting today, body aches as well as a red itchy rash to the right side of abdomen extending to under arm. Denies lip, tongue, or throat swelling, shortness of breath or wheezing. Denies changes to soap, detergent, lotion, or any other exposures. No one else in the house or any contacts with similar symptoms. pt was seen by the medical team at his employer who advised he get evaluated before returning to work. Pt reports history of shingles. Endorses recent constipation, has not eaten since yesterday morning. Family with n/v and fevers. Related Data Allergies Allergy/AdvReac Type Severity Reaction Status Date / Time No Known Allergies Allergy Verified 06/21/24 09:57 Review of Systems Review of Systems: CONSTITUTIONAL: endorses body aches,denies fever, chills ENT: Denies rhinorrhea, congestion CARDIOVASCULAR: Denies chest pain, palpitations, or edema. RESPIRATORY: Denies cough or dyspnea. GASTROINTESTINAL: Endorses nausea, vomiting, constipation. Denies abdominal pain, diarrhea hematochezia, melena, hematemesis GENITOURINARY: Denies dysuria, hematuria, or CVA tenderness. SKIN: Reports rash and itching MUSCULOSKELETAL: Denies back pain, joint pain, or myalgia. NEUROLOGIC: Denies headache, numbness, tingling, or weakness. All systems reviewed & are unremarkable except as noted in HPI and below PMFSH Past Medical History Medical History Eczema Kidney stone Surgical History Surgical History No pertinent past surgical history Family History Family History Mother Family history non-contributory Social History Social History Social History: Denies smoking or drinking Smoking status: Never smoker Second hand tobacco smoke exposure: No Alcohol intake: never Substance use: current Substance use type: marijuana Other substance usage details: social Living arrangements: with family Gender identity (if verbalized by the patient): Male Sexual Orientation (if Verbalized by the Patient): Straight or Heterosexual Spiritual care concerns: No Comments At time of signature, I have reviewed and agree with nursing past medical, surgical, social and family history unless otherwise noted. Please see nursing chart for further information. There is no relevant family history pertinent to the presenting complaint Exam Narrative: GENERAL: Well-appearing, and in no acute distress. EYES: EOMI. Conjunctivae normal. ENT: Mucous membranes pink and moist. CHEST: No respiratory distress. Clear to auscultation. HEART: Regular rate and rhythm. No murmur appreciated. Normal peripheral pulses. ABDOMEN: abd soft, nondistended, normal active bowel sounds. Nontender abdomen: No guarding, rebound tenderness, asymmetry EXTREMITIES: Normal range of motion. No edema. SKIN: Warm, dry,right abdominal erythematous papular rash extending to axilla. Does not cross midline. Capillary refill normal. Normal skin turgor. NEURO: No focal deficits. Alert and oriented x3. PSYCH: Normal affect. Course Course Emergency Course: Patient is aware of diagnosis, understands and agrees to treatment plan. Anticipatory guidance given. Patient agrees to follow-up as directed and is aware of reasons to seek care at the emergency department. Portions of this record may have been created with voice recognition software Level of Care: Express Care Visit Vital Signs Vital signs: Vital Signs Temperature 98.2 F 06/21/24 10:21 Pulse Rate 79 06/21/24 10:21 Respiratory Rate 16 06/21/24 10:21 Blood Pressure 139/78 06/21/24 10:21 Pulse Oximetry 100 06/21/24 10:21 Oxygen Delivery Room Air 06/21/24 10:21 Temperature 98.2 F 06/21/24 10:21 Pulse Rate 79 06/21/24 10:21 Respiratory Rate 16 06/21/24 10:21 Blood Pressure 139/78 06/21/24 10:21 Pulse Oximetry 100 06/21/24 10:21 Oxygen Delivery Room Air 06/21/24 10:21 MDM - Nausea/Vomiting/Diarrhea MDM Narrative Medical decision making narrative: Discussed physical exam findings. flu and COVID negative. Reviewed prescription for dermatitis. Advised supportive measures and signs/symptoms to go to the ER. Pt is appropriate for outpt treatment and f/u. Differential Diagnosis Differential diagnosis: Likely food poisoning, gastroenteritis, drug-induced nausea and vomiting, dehydration and other ( Viral exanthema, contact dermatitis, allergic dermatitis, eczema, urticaria, insect bites, impetigo, tinea, folliculitis) Discharge Plan Discharge Clinical Impression: Dermatitis, Nausea & vomiting Patient Disposition: Home, Self-Care Condition: Stable Instructions: Antibiotic Form, Acute Nausea and Vomiting (ED), Dermatitis (ED) Additional Instructions: Nausea vomiting: Flu and COVID negative. Stay hydrated. Take small sips of fluid containing electrolytes frequently. Clear liquids (broth, jello, tea, sprite, pedialyte) Walker foods (bananas, rice, applesauce, toast, crackers) Avoid fatty, greasy, fried or spicy foods. Limit dairy until symptoms are improved. You should go to the hospital if you experience persistent nausea and vomiting that does not resolve and does not allow you to tolerate any food or fluids, fevers, increasing abdominal pain, persistent diarrhea, dizziness, fainting, or for any other concerns. Follow up with primary care provider in 3 days. rash: Take steroids and Pepcid as directed. Benadryl every 8 hours as needed Cool compresses to the sites of itching, avoid hot water. Avoid scratching to reduce the risk of infection Patient Language: Tamaz[place] Prescriptions: New famotidine [Pepcid] 40 mg tablet 40 mg PO DAILY Qty: 10 0RF methylprednisolone [Medrol (Fernie)] 4 mg tablets,dose pack See Rx Instructions .ROUTE .COMPLEX Qty: 21 0RF Rx Instructions: orally per package directions No Action dicyclomine 20 mg tablet 20 mg PO QID 7 Days Qty: 28 0RF ondansetron 4 mg tablet,disintegrating 4 mg PO Q6-8H PRN (Reason: nausea and vomiting) Qty: 7 0RF Follow-up/Referrals: PHYSICIAN NOT ON STAFF,NONSTAFF [Primary Care Provider] - Stand Alone Forms: Work/School Release IP Time of Disposition: 10:49
[2024-06-21 10:45] LABS: EDCOVIDSCREEN Negative (Negative); EDINFLUASCREEN Negative (Negative); EDINFLUBSCREEN Negative (Negative)
[2024-06-21 10:57] LABS: EDCOVIDSCREEN Negative (Negative); EDINFLUASCREEN Negative (Negative); EDINFLUBSCREEN Negative (Negative)
--- OUTSIDE RECORDS SUMMARY | 2024-06-29 00:12 | XMS_ITS | Encounter Summary ---
Author Organization [facility] Address [address] [place] [address] Phone Care Team Providers Care Warehouse Record Clerk Name Role Phone Michele Solis APRN, CNP Unavailable Michele Solis APRN, CNP Primary Care Pr ovider Frank Gamboa MD Unavailable Reason for Visit * Reason Comments Flank Pain Encounter Details Date Type Department Care Team (Late st Contact Info) Description 04/17/2023 10:40 PM CDT - 04/18/2023 5:19 AM CDT Emergency [facility] Emergency [address] [place] [address] Francois Greco MD [address] [place] [address] Ureterolithiasis Discharge Disposition: Discharged to home or Selfcare Social History Tobacco Use Types Packs/Day Years Used Date Smoking Tobacco: Never Smokeless Tobacco: Never Alcohol Use Standard Drinks/Week Comments No 0 (1 standard drink = 0.6 oz pur e alcohol) PHQ-2 Answer Date Recorded Total Score - Questions 1-9 0 03/19 Education Answer Date Recorded What is the highest level of school you have completed or the highest degree you have received? GED or equivalent Sexually Active Control Partners Comments Not Currently Female Sex and Gender Information Value Date Recorded Sex Assigned at Not on file Legal Sex Male 8:11 PM CDT Gender Identity Not on file Sexual Orientation Not on file COVID-19 Exposure Response Date Recorded In the last 10 days, have yo u been in contact with someone who was confirmed or suspected to have Coronavirus/COVID-19? No / Unsure 04/17/2023 10:38 PM CDT documented as of this encounter Last Filed Vital Signs Vital Sign Reading Time Taken Comments Blood Pressure 139/95 04/17/2023 10:37 PM CDT Pulse 80 04/18/2023 5:15 AM CDT Temperature 36.1 ??C (97 ??F) 04/17/2023 10:37 PM CDT Respiratory Rate 16 04/18/2023 5:15 AM CDT Oxygen Saturation 98% 04/18/2023 5:15 AM CDT Inhaled Oxygen Concentration - - Weight 81.6 kg (180 lb) 04/17/2023 10:37 PM CDT Height 162.6 cm (5' 4 ) 04/17/2023 10:37 PM CDT Body Mass Index 30.9 04/17/2023 10:37 PM CDT documented in this encounter Discharge Instructions * Attachments The following attachments cannot be sent through Care Everywhere. * Renal Colic [id number] (Italian) * Kidney Stones (Italian) documented in this encounter Medications at Time of Discharge HYDROcodone-aceta minophen (NORCO) 5-325 MG TabletIndications :Ureterolithiasis Take 1 Tablet by mouth every 4 hours as needed for Severe pain. 20 Tablet 04/18/2023 HYDROcodone-aceta minophen (NORCO) 5-325 MG TabletIndications :Right ureteral stone Take 1 Tablet by mouth every 4 hours as needed for Mild or more severe pain. 5 Tablet 04/05/2023 ketorolac (TORADOL) 10 MG Tablet Take 1 Tablet by mouth every 6 hours as needed for Moderate or more severe pain. 20 Tablet 04/18/2023 ketorolac (TORADOL) 10 MG Tablet Take 1 Tablet by mouth every 6 hours as needed for Moderate or more severe pain. 15 Tablet 03/21/2023 methylPREDNISolon e (MEDROL DOSPACK) 4 MG Tablet Therapy Pack See product package insert for dosing schedule 21 Tablet 03/21/2023 ondansetron (ZOFRAN-ODT) 4 MG TABLET DISPERSIBLE Take 1 Tablet by mouth every 8 hours as needed for Nausea - 1st line. 20 Tablet 04/18/2023 tamsulosin (FLOMAX) 0.4 MG Capsule Take 0.4 mg by mouth daily as needed. cyclobenzaprine (FLEXERIL) 5 MG Tablet Take 1 Tablet by mouth 3 times daily as needed for Muscle spasms. 15 Tablet 03/21/2023 3 documented as of this encounter ED Notes * Isabel Grove RN - 04/18/2023 5:19 AM CDT Patient verbalized understanding of dc instructions. No further needs noted. * Isabel Grove RN - 04/18/2023 2:25 AM CDT Report received from STACI Roman. * Jessie Ochoa RN - 04/18/2023 2:20 AM CDT Pt attempting to provide urine specimen at this time. * Jessie Ochoa RN - 04/18/2023 1:22 AM CDT Pt updated on plan of care. Pt resting in bed with call light in reach. Pt medicated per provider orders. Pt educated on intended effects and side effects of medication and verbalized understanding, able to provide teach back of education. * Jessie Ochoa RN - 04/18/2023 12:30 AM CDT Pt resting in bed with call light in reach. Pt updated on plan of care. Pt denies being able to urinate right now. * Jessie Ochoa RN - 04/17/2023 11:30 PM CDT Pt refusing to wear BP cuff. Pt states it was making his arm lock up. * Jessie Ochoa RN - 04/17/2023 11:23 PM CDT Pt medicated per provider orders. Pt educated on intended effects and side effects of medication and verbalized understanding, able to provide teach back of education. * Delon Mackey RN - 04/17/2023 10:58 PM CDT Pt medicated per provider orders. Pt educated on intended effects and side effects of medication and verbalized understanding, able to provide teach back of education. * Francois Greco MD - 04/17/2023 10:53 PM CDT Chief Complaint Patient presents with ??? Flank Pain Arjun Rasmussen is a 32 y.o. male who presents to the emergency department complaining of severe pain in his right flank. Patient states it began a couple of days ago but in the last 2 hours it got severe. It is constant. It waxes and wanes. It is associated with nausea and some dry heaves. Nothing he does makes it better or worse. History of multiple kidney stones in the past and this feels very similar. The patient does see Dr. Gamboa. States he recently had a kidney stone that was 2 mm that he passed a couple of weeks ago Past medical history: Illnesses: History of kidney stones Medications: Flomax Allergies: No known drug allergies Surgeries: Your ureteral stents, cystoscopy Social History: Tobacco: Denies Alcohol: Denies Marijuana: Recreational marijuana Drugs: Denies This chart was created using a voice recognition program. There maybe grammatical and/or syntax errors that are unintentional. No current facility-administered medications for this encounter. Current Outpatient Medications Medication Sig Dispense Refill ??? cyclobenzaprine (FLEXERIL) 5 MG Tablet Take 1 Tablet by mouth 3 times daily as needed for Muscle spasms. 15 Tablet 0 ??? HYDROcodone-acetaminophen (NORCO) 5-325 MG Tablet Take 1 Tablet by mouth every 4 hours as needed for Severe pain. 20 Tablet 0 ??? HYDROcodone-acetaminophen (NORCO) 5-325 MG Tablet Take 1 Tablet by mouth every 4 hours as needed for Mild or more severe pain. 5 Tablet 0 ??? ketorolac (TORADOL) 10 MG Tablet Take 1 Tablet by mouth every 6 hours as needed for Moderate ormore severe pain. 20 Tablet 0 ??? ketorolac (TORADOL) 10 MG Tablet Take 1 Tablet by mouth every 6 hours as needed for Moderate ormore severe pain. 15 Tablet 0 ??? methylPREDNISolone (MEDROL DOSPACK) 4 MG Tablet Therapy Pack See product package insert for dosing schedule 21 Tablet 0 ??? ondansetron (ZOFRAN-ODT) 4 MG TABLET DISPERSIBLE Take 1 Tablet by mouth every 8 hours as neededfor Nausea - 1st line. 20 Tablet 0 ??? tamsulosin (FLOMAX) 0.4 MG Capsule Take 0.4 mg by mouth daily as needed. No Known Allergies Past Medical History Positives Diagnosis Date ??? Kidney stone on left side Past Surgical History: Procedure Laterality Date ??? CYSTOSCOPY Left 03/31/2020 Procedure: CYSTOSCOPY RETROGRADE PYELOGRAMS; Surgeon: Robert Clemons MD; Location: [facility]; Service: Urology ??? CYSTOSCOPY Bilateral 10/06/2022 Procedure: CYSTOSCOPY, BILATERAL RETROGRADE PYELOGRAMS; Surgeon: Frank Gamboa MD; Location: [facility]; Service: Urology ??? URETER STENT PLACEMENT Left 03/31/2020 Procedure: CYSTOSCOPY LEFT STENT INSERTION; Surgeon: Robert Clemons MD; Location: [facility]; Service: Urology ??? URETEROSCOPY Left 03/31/2020 Procedure: LEFT URETEROSCOPY WITH HOLMIUM LASER LITHOTRIPSY, STONE BASKET EXTRACTION AND FLUOROSCOPY GUIDANCE; Surgeon: Robert Clemons MD; Location: [facility]; Service: Urology ??? WISDOM TOOTH EXTRACTION Bilateral upper and lower Social History Socioeconomic History ??? Marital status: Single Spouse name: Not on file ??? Number of children: Not on file ??? Years of education: Not on file ??? Highest education level: GED or equivalent Occupational History ??? Not on file Tobacco Use ??? Smoking status: Never ??? Smokeless tobacco: Never Vaping Use ??? Vaping Use: Every day ??? Substances: CBD ??? Devices: Disposable Substance and Sexual Activity ??? Alcohol use: No ??? Drug use: Not Currently Frequency: 7.0 times per week Types: Marijuana Comment: FOR SLEEP ??? Sexual activity: Not Currently Partners: Female Other Topics Concern ??? Not on file Social History Narrative ??? Not on file BP (!) 139/95 Pulse 82 Temp 97 ??F (36.1 ??C) (Tympanic) Resp 18 Ht 5' 4 (1.626 m) Wt 180 lb (81.6 kg) SpO2 96% BMI 30.90 kg/m?? Review of Systems Constitutional: Negative for activity change, appetite change, chills, diaphoresis, fatigue and fever. HENT: Negative for dental problem, rhinorrhea and sore throat. Eyes: Negative for visual disturbance. Respiratory: Negative for cough, chest tightness, shortness of breath and wheezing. Cardiovascular: Negative for chest pain, palpitations and leg swelling. Gastrointestinal: Positive for nausea and vomiting. Negative for abdominal pain, constipation and diarrhea. Genitourinary: Positive for flank pain. Negative for difficulty urinating, hematuria and urgency. Musculoskeletal: Negative for arthralgias, back pain, myalgias, neck pain and neck stiffness. Skin: Negative for color change and rash. Allergic/Immunologic: Negative for food allergies. Neurological: Negative for dizziness, syncope, weakness, light-headedness, numbness and headaches. Psychiatric/Behavioral: Negative for self-injury, sleep disturbance and suicidal ideas. All other systems reviewed and are negative. Physical Exam Vitals and nursing note reviewed. Constitutional: General: He is in acute distress. Appearance: He is well-developed. He is not diaphoretic. HENT: Head: Normocephalic and atraumatic. Right Ear: External ear normal. Left Ear: External ear normal. Nose: Nose normal. Mouth/Throat: Mouth: Mucous membranes are moist. Pharynx: No oropharyngeal exudate. Eyes: General: Right eye: No discharge. Left eye: No discharge. Conjunctiva/sclera: Conjunctivae normal. Pupils: Pupils are equal, round, and reactive to light. Neck: Thyroid: No thyromegaly. Vascular: No JVD. Trachea: No tracheal deviation. Cardiovascular: Rate and Rhythm: Normal rate and regular rhythm. Heart sounds: Normal heart sounds. No murmur heard. Pulmonary: Effort: Pulmonary effort is normal. No respiratory distress. Breath sounds: Normal breath sounds. No wheezing or rales. Chest: Chest wall: No tenderness. Abdominal: General: Bowel sounds are normal. There is no distension. Palpations: Abdomen is soft. There is no mass. Tenderness: There is no abdominal tenderness. There is right CVA tenderness. There is no guarding or rebound. Musculoskeletal: General: No tenderness. Normal range of motion. Cervical back: Normal range of motion and neck supple. Lymphadenopathy: Cervical: No cervical adenopathy. Skin: General: Skin is warm and dry. Capillary Refill: Capillary refill takes less than 2 seconds. Coloration: Skin is not pale. Findings: No erythema or rash. Neurological: Mental Status: He is alert and oriented to person, place, and time. Cranial Nerves: No cranial nerve deficit. Motor: No abnormal muscle tone. Coordination: Coordination normal. Deep Tendon Reflexes: Reflexes are normal and symmetric. Psychiatric: Behavior: Behavior normal. Thought Content: Thought content normal. Procedures Recent Results (from the past 24 hour(s)) BMP w/ Ca Result Value Ref Range SODIUM 141 136 - 145 mmol/L POTASSIUM 3.5 3.5 - 5.1 mmol/L CHLORIDE 106 98 - 107 mmol/L CO2, VENOUS 21 (L) 22 - 30 mmol/L ANION GAP 17.5 <18.0 mmol/L GLUCOSE 96 70 - 99 mg/dL BUN 8 (L) 9 - 21 mg/dL CREATININE, BLOOD 1.15 0.70 - 1.30 mg/dL BUN/CREATININE RATIO 7 (L) 12 - 20 ratio CALCIUM 9.0 8.7 - 10.5 mg/dL GFR, ESTIMATED >60 >=60 GFR, EST. >60 >=60 GFR, EST. NONAFRICAN >60 >=60 CBC with Auto Differential Result Value Ref Range WBC 10.35 4.00 - 12.00 10(3)/mcL RBC 5.47 4.40 - 5.80 10(6)/mcL HEMOGLOBIN (HGB) 15.5 13.0 - 16.5 g/dL HEMATOCRIT (HCT) 45.7 38.0 - 50.0 % MCV 83.5 82.0 - 96.0 fL MCH 28.3 26.0 - 32.0 pg MCHC 33.9 31.0 - 36.0 g/dL PLATELET COUNT 205 140 - 440 10(3)/mcL RDW 12.0 11.8 - 15.5 % MPV 10.3 8.0 - 12.6 fL NEUTROPHILS 40.2 40.0 - 68.0 % LYMPHOCYTES 50.3 (H) 19.0 - 49.0 % MONOCYTES 6.6 3.0 - 13.0 % EOSINOPHILS 2.0 0.0 - 8.0 % BASOPHILS 0.9 0.0 - 1.0 % ABSOLUTE NEUTROPHILS 4.16 1.40 - 5.30 10(3)/mcL ABSOLUTE LYMPHOCYTES 5.21 (H) 0.90 - 3.30 10(3)/mcL ABSOLUTE MONOCYTES 0.68 0.10 - 0.90 10(3)/mcL ABSOLUTE EOSINOPHIL 0.21 0.00 - 0.50 10(3)/mcL ABSOLUTE BASOPHILS 0.09 0.00 - 0.10 10(3)/mcL NRBC PER 100 WBC 0 RESULTS ARE CONSISTENT WITH PERIPHERAL SMEAR REVIEW Yes Urinalysis w/ Reflex Result Value Ref Range SPECIFIC GRAVITY 1.015 1.003 - 1.030 URINE PH 5.0 5.0 - 9.0 WBC ESTERASE Negative Negative NITRITE Negative Negative PROTEIN, RANDOM URINE 30 mg/dL (A) Negative URINE GLUCOSE, QUAL Negative Negative URINE KETONES Negative Negative UROBILINOGEN Normal Normal mg/dL URINE BLOOD 250 /uL (A) Negative trish/ul URINALYSIS COLOR Yellow URINALYSIS CLARITY Clear WBC (Urine) Negative Negative, 0-5 /hpf URINE RBC'S 11-20 (A) Negative, 0-2 /hpf EPITHELIAL CELLS Negative /lpf BACTERIA, URINE Negative Negative /hpf Imaging Results CT ABDOMEN PELVIS W/O CONTRAST (Final result) Result time 04/17/23 23:19:37 Final result by Bakari Yates MD (04/17/23 23:19:37) Impression: IMPRESSION: 3 mm stone at the right ureterovesical junction producing mild right hydronephrosis and hydroureter Narrative: EXAM DESCRIPTION: CT ABDOMEN PELVIS W/O CONTRAST REASON FOR STUDY: Flank pain TECHNIQUE: CT scan of the abdomen and pelvis performed without intravenous and without oral contrast using helical scanning technique. Reconstructed coronal and sagittal MPR images reviewed. All images stored on PACS. Automated exposure control was used as a dose optimization technique for this examination. COMPARISON: 04/05/2023 REFERENCE: Per ACR white paper recommendations, unless otherwise specified no follow-up imaging is recommended for incidental renal and adrenal lesions per consensus recommendations based on imaging criteria. Further lab evaluation could be pursued based on clinical findings. FINDINGS: The sensitivity for detection of visceral lesions is diminished without the use of intravenous contrast. LOWER CHEST: No significant pulmonary abnormalities. No effusion. LIVER: Normal size. No identified cystic or solid masses. GALLBLADDER: Unremarkable BILE DUCTS: No intrahepatic or extrahepatic ductal dilatation. SPLEEN: Normal size. No focal lesions. PANCREAS: No identified cystic or solid masses. No significant calcifications. No adjacent inflammation or peripancreatic fluid collections. Pancreatic duct not dilated. ADRENALS: Normal. KIDNEYS/URINARY TRACT: Mild right hydronephrosis and hydroureter is seen. There is a 3 mm stone at the right ureterovesical junction. The left kidney and ureter appear unremarkable. Urinary bladder is unremarkable. GI: No dilated bowel loops. No obvious wall thickening. Normal appendix. No significant diverticular disease. PERITONEUM: No ascites or free air. RETROPERITONEUM: No mass or adenopathy. REPRODUCTIVE: No significant abnormality. VASCULATURE: No abdominal aortic aneurysm. MUSCULOSKELETAL: No significant abnormality. OTHER: No other abnormality. THIS IS AN ELECTRONICALLY VERIFIED FINAL REPORT 04/17/2023 11:17 PM - Electronically signed by Bakari Yates M.D. KH: LINDA Report ID: [id number] Reading Location: [address] Impression: Patient presents with right flank pain concerning for kidney stones, pyelonephritis. Notably, further history obtained from Dr. Gamboa were reviewed. Patient's history of previous kidney stones with stents has impacted care and subsequent medical decision making. In the workup of these potential diagnoses I considered but did not pursue acute cholecystitis, trauma due to signs and symptoms on exam and initial findings not consistent with these disease processes. Tests were independently reviewed and interpreted and imaging independently visualized and interpreted. This is notable for 3 mm stone at the UVJ Interventions and treatments in the ER antiemetics, pain control I considered escalation of care including observation versus admission but not warranted due to resolution of symptoms Plan for discharge home. Discussed the case with patient. I will prescribe Salida for severe pain, Toradol for pain and Zofran. Patient has Flomax at home. Reasons to return to the emergency room werediscussed. Clinical Impression 1. Ureterolithiasis 2. Kidney stones Disposition: Discharged The patient remained stable throughout their ED stay. My clinical impression was discussed with thepatient/caregiver. Any labs and radiology results were reviewed. Questions were addressed as completely as possible given the information available at present. The therapeutic plan was discussed, inst ructions were given and the importance of primary care follow up was stressed and encouraged. The patient/caregiver voiced understanding of the plan, indications to return, and the need for follow up. Reasons to return to the E.D. were discussed. New Medications: New Prescriptions HYDROCODONE-ACETAMINOPHEN (NORCO) 5-325 MG TABLET Take 1 Tablet by mouth every 4 hours as needed for Severe pain. KETOROLAC (TORADOL) 10 MG TABLET Take 1 Tablet by mouth every 6 hours as needed for Moderate or more severe pain. ONDANSETRON (ZOFRAN-ODT) 4 MG TABLET DISPERSIBLE Take 1 Tablet by mouth every 8 hours as needed forNausea - 1st line. I have advised the patient to follow-up with: Michele Solis APRN, [facility] [address] [address] As needed Frank Gamboa MD [address] [place] [phone] Call in 1 day If symptoms worsen Dispostion: Discharge * Shyanne Mccabe RN - 04/17/2023 10:36 PM CDT Pt presents with c/o right flank pain radiating into RLQ intermittently all day but worse the past 2 hours. Pt denies urinary symptoms. 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 Office Visit [facility] [address] [place] [address] Donell Rosenbaum MD [address] [address] documented as of this encounter Procedures Procedure Name Priority Date/Time Associated Diagnosis Comments URINALYSIS REFLEX IF INDICATED BY ABNORMAL RESULTS STAT 04/18/2023 2:[address] ABDOMEN PELVIS W/O CONTRAST Stat with Interpretation 04/17/2023 11:05 PM CDT CBC WITH AUTO DIFFERENTIAL STAT 04/17/2023 10:54 PM CDT COMPLETE BLOOD COUNT (CBC) WITH DIFF STAT 04/17/2023 10:54 PM CDT BASIC METABOLIC PANEL W/ CALCIUM TOTAL STAT 04/17/2023 10:54 PM CDT documented in this encounter Results * (ABNORMAL) Urinalysis w/ Reflex (04/18/2023 2:23 AM CDT) SPECIFIC GRAVITY 1.015 1.003 - 1.030 04/18/2023 3:00 AM CDT [facility] URINE PH 5.0 5.0 - 9.0 04/18/2023 3:00 AM CDT [facility] WBC ESTERASE Negative Negative 04/18/2023 3:00 AM CDT [facility] NITRITE Negative Negative 04/18/2023 3:00 AM CDT [facility] PROTEIN, RANDOM URINE 30 mg/dL(A) Negative 04/18/2023 3:00 AM CDT [facility] URINE GLUCOSE, QUAL Negative Negative 04/18/2023 3:00 AM CDT [facility] URINE KETONES Negative Negative 04/18/2023 3:00 AM CDT [facility] UROBILINOGEN Normal Normal mg/dL 04/18/2023 3:00 AM CDT [facility] URINE BLOOD 250 /uL(A) Negative trish/ul 04/18/2023 3:00 AM CDT [facility] URINALYSIS COLOR Yellow 04/18/20 3:00 AM CDT [facility] URINALYSIS CLARITY Clear 04/18/2023 3:00 AM CDT [facility] WBC (Urine) Negative Negative, 0-5 /hpf 04/18/2023 3:00 AM CDT [facility] URINE RBC'S 11-20(A) Negative, 0-2 /hpf 04/18/2023 3:00 AM CDT [facility] EPITHELIAL CELLS Negative /lpf 04/18/20 3:00 AM CDT [facility] BACTERIA, URINE Negative Negative /hpf 04/18/2023 3:00 AM CDT [facility] Urine URINE SPECIMEN / Unknown Non-Phlebotomy Collection / Unknown 04/18/2023 2:23 AM CDT 04/18/2023 2:26 AM CDT us Francois Greco MD URINE ORDERABLES Final Result [facility] [address] [place] [address] * CT ABDOMEN PELVIS W/O CONTRAST (04/17/2023 11:05 PM CDT) Anatomical Region Laterality Modality Abdomen N/A Computed Tomogra phy 04/17/2023 11:1 7 PM CDT Impressions 04/17/2023 11:19 PM CDT IMPRESSION: ?? 3 mm stone at the right ureterovesical junction producing mild right hydronephrosis and hydroureter Narrative 04/17/2023 11:19 PM CDT EXAM DESCRIPTION: ?? CT ABDOMEN PELVIS W/O CONTRAST REASON FOR STUDY: ?? Flank pain TECHNIQUE: CT scan of the abdomen and pelvis performed without intravenous and ??without ??oral contrast using helical scanning technique. Reconstructed coronal and sagittal MPR images reviewed. All images stored on PACS. Automated exposure control was used as a dose optimization technique for this examination. COMPARISON: ?? 04/05/2023 REFERENCE: Per ACR white paper recommendations, unless otherwise specified no follow-up imaging is recommended for incidental renal and adrenal lesions per consensus recommendations based on imaging criteria. Further lab evaluation could be pursued based on clinical findings. FINDINGS: The sensitivity for detection of visceral lesions is diminished without the use of intravenous contrast. LOWER CHEST: ?? No significant pulmonary abnormalities. No effusion. LIVER: ?? Normal size. ??No identified cystic or solid masses. GALLBLADDER: ?? Unremarkable BILE DUCTS: ?? No intrahepatic or extrahepatic ductal dilatation. SPLEEN: ?? Normal size. ??No focal lesions. PANCREAS: ?? No identified cystic or solid masses. ??No significant calcifications. No adjacent inflammation or peripancreatic fluid collections. Pancreatic duct not dilated. ADRENALS: ?? Normal. KIDNEYS/URINARY TRACT: ?? Mild right hydronephrosis and hydroureter is seen. ??There is a 3 mm stone at the right ureterovesical junction. ??The left kidney and ureter appear unremarkable. ? Urinary bladder is unremarkable. GI: ?? No dilated bowel loops. No obvious wall thickening. ??Normal appendix. ??No significant diverticular disease. PERITONEUM: ?? No ascites or free air. RETROPERITONEUM: ?? No mass or adenopathy. REPRODUCTIVE: ?? No significant abnormality. VASCULATURE: ?? No abdominal aortic aneurysm. MUSCULOSKELETAL: ?? No significant abnormality. OTHER: ?? No other abnormality. THIS IS AN ELECTRONICALLY VERIFIED FINAL REPORT 04/17/2023 11:17 PM - Electronically signed by ??Bakari MCKEON: LINDA D: ??04/17/2023 11:17 PM T: ??04/17/2023 11:17 PM Report ID: [id number] Reading Location: ??[id number] Procedure Note Bakari Yates MD - 04/17/2023 EXAM DESCRIPTION: CT ABDOMEN PELVIS W/O CONTRAST REASON FOR STUDY: Flank pain TECHNIQUE: CT scan of the abdomen and pelvis performed without intravenous and without oral contrast using helical scanning technique. Reconstructed coronal and sagittal MPR images reviewed. All images stored on PACS. Automated exposure control was used as a dose optimization technique for this examination. COMPARISON: 04/05/2023 REFERENCE: Per ACR white paper recommendations, unless otherwise specified no follow-up imaging is recommended for incidental renal and adrenal lesions per consensus recommendations based on imaging criteria. Further lab evaluation could be pursued based on clinical findings. FINDINGS: The sensitivity for detection of visceral lesions is diminished without the use of intravenous contrast. LOWER CHEST: No significant pulmonary abnormalities. No effusion. LIVER: Normal size. No identified cystic or solid masses. GALLBLADDER: Unremarkable BILE DUCTS: No intrahepatic or extrahepatic ductal dilatation. SPLEEN: Normal size. No focal lesions. PANCREAS: No identified cystic or solid masses. No significant calcifications. No adjacent inflammation or peripancreatic fluid collections. Pancreatic duct not dilated. ADRENALS: Normal. KIDNEYS/URINARY TRACT: Mild right hydronephrosis and hydroureter is seen. There is a 3 mm stone at the right ureterovesical junction. The left kidney and ureter appear unremarkable. Urinary bladder is unremarkable. GI: No dilated bowel loops. No obvious wall thickening. Normal appendix. No significant diverticular disease. PERITONEUM: No ascites or free air. RETROPERITONEUM: No mass or adenopathy. REPRODUCTIVE: No significant abnormality. VASCULATURE: No abdominal aortic aneurysm. MUSCULOSKELETAL: No significant abnormality. OTHER: No other abnormality. THIS IS AN ELECTRONICALLY VERIFIED FINAL REPORT 04/17/2023 11:17 PM - Electronically signed by Bakari MCKEON: LINDA Report ID: [id number] Reading Location: [id number] IMPRESSION: 3 mm stone at the right ureterovesical junction producing mild right hydronephrosis and hydroureter us Francois Greco MD IMG CT ORDERABLES Final Result * (ABNORMAL) CBC with Auto Differential (04/17/2023 10:54 PM CDT) WBC 10.35 4.00 - 12.00 10(3)/mcL 04/18/2023 12:52 AM CDT [facility] RBC 5.47 4.40 - 5.80 10(6)/[facility] 04/18/2023 12:52 AM CDT [facility] HEMOGLOBIN (HGB) 15.5 13.0 - 16.5 g/dL 04/18/2023 12:52 AM CDT [facility] HEMATOCRIT (HCT) 45.7 38.0 - 50.0 % 04/18/2023 12:52 AM CDT [facility] MCV 83.5 82.0 - 96.0 fL 04/18/2023 12:52 AM CDT [facility] MCH 28.3 26.0 - 32.0 pg 04/18/2023 12:52 AM CDT [facility] MCHC 33.9 31.0 - 36.0 g/dL 04/18/2023 12:52 AM CDT [facility] PLATELET COUNT 205 140 - 440 10(3)/[facility] 04/18/2023 12:52 AM CDT [facility] RDW 12.0 11.8 - 15.5 % 04/18/2023 12:52 AM CDT [facility] MPV 10.3 8.0 - 12.6 fL 04/18/2023 12:52 AM CDT [facility] NEUTROPHILS 40.2 40.0 - 68.0 % 04/18/2023 12:52 AM CDT [facility] LYMPHOCYTES 50.3(H) 19.0 - 49.0 % 04/18/2023 12:52 AM CDT [facility] MONOCYTES 6.6 3.0 - 13.0 % 04/18/2023 12:52 AM CDT [facility] EOSINOPHILS 2.0 0.0 - 8.0 % 04/18/2023 12:52 AM CDT [facility] BASOPHILS 0.9 0.0 - 1.0 % 04/18/2023 12:52 AM CDT [facility] ABSOLUTE NEUTROPHILS 4.16 1.40 - 5.30 10(3)/mcL 04/18/2023 12:52 AM CDT [facility] ABSOLUTE LYMPHOCYTES 5.21(H) 0.90 - 3.30 10(3)/mcL 04/18/2023 12:52 AM CDT [facility] ABSOLUTE MONOCYTES 0.68 0.10 - 0.90 10(3)/[facility] 04/18/2023 12:52 AM CDT [facility] ABSOLUTE EOSINOPHIL 0.21 0.00 - 0.50 10(3)/[facility] 04/18/2023 12:52 AM CDT [facility] ABSOLUTE BASOPHILS 0.09 0.00 - 0.10 10(3)/mcL 04/18/2023 12:52 AM CDT [facility] NRBC PER 100 WBC 0 04/18/20 23 12:52 AM CDT [facility] RESULTS ARE CONSISTENT WITH PERIPHERAL SMEAR REVIEW Yes 04/18/2023 12:52 AM CDT [facility] Blood Venipuncture / Unknown 04/17/2023 10:54 PM CDT 04/17/2023 11:44 PM CDT us Francois Greco MD HEMATOLOGY ORDERABLES Final Res ult [facility] [address] [place] [address] * (ABNORMAL) BMP w/ Ca (04/17/2023 10:54 PM CDT) SODIUM 141 136 - 145 mmol/L 04/18/2023 12:40 AM CDT [facility] POTASSIUM 3.5 3.5 - 5.1 mmol/L 04/18/2023 12:40 AM CDT [facility] CHLORIDE 106 98 - 107 mmol/L 04/18/2023 12:40 AM CDT [facility] CO2, VENOUS 21(L) 22 - 30 mmol/L 04/18/2023 12:40 AM CDT [facility] ANION GAP 17.5 <18.0 mmol/L 04/18/2023 12:40 AM CDT [facility] GLUCOSE 96 70 - 99 mg/dL 04/18/2023 12:40 AM CDT [facility] BUN 8(L) 9 - 21 mg/dL 04/18/2023 12:40 AM CDT [facility] CREATININE, BLOOD 1.15 0.70 - 1.30 mg/dL 04/18/2023 12:40 AM CDT [facility] BUN/CREATININE RATIO 7(L) 12 - 20 ratio 04/18/2023 12:40 AM CDT [facility] CALCIUM 9.0 8.7 - 10.5 mg/dL 04/18/2023 12:40 AM CDT [facility] GFR, ESTIMATED >60 >=60 04/18/2023 12:40 AM CDT [facility] Comment: Creatinine Clearance is the preferred criteria for selecting drug dose adjustments in renally impaired patients. ??The GFR is provided as additional pertinent clinical information. GFR is reported in mL/min/1.73 sq m. Calculation based on the Chronic Kidney Disease Epidemiology Collaboration (CKD- EPI) equation refit without adjustment for race. GFR, EST. >60 >=60 023 12:40 AM CDT [facility] GFR, EST. NONAFRICAN >60 >=60 04/18/2023 12:40 AM CDT [facility] Blood Venipuncture / Unknown 04/17/2023 10:54 PM CDT 04/17/2023 11:44 PM CDT us Francois Greco MD CHEMISTRY ORDERABLES Final Resu lt [facility] [address] [place] [address] documented in this encounter Visit Diagnoses Diagnosis Ureterolithiasis- Primary Calculus of ureter Kidney stones Calculus of kidney documented in this encounter Administered Medications Inactive Administered Medications - up to 3 most recent administrations Medication Order MAR Action Action Date Dose Rate Site HYDROmorphone (DILAUDID) injection 0.5 mg 0.5 mg, Intravenous, ONCE, 1 dose, On Mon04/18/23 at 0130, If pain not effectively managed, then contact provider to discuss possibly 1) adding scheduled opioid dosing or non-opioid pain treatments, 2) increasing dosage, or 3) changing to TRUCK [employer]ER [employer] CRANE. Given 04/18/2023 1:20 AM CDT 0.5 mg HYDROmorphone (DILAUDID) injection 1 mg 1 mg, Intravenous, ONCE, 1 dose, On Mon04/18/23 at 0000, If pain not effectively managed, then contact provider to discuss possibly 1) adding scheduled opioid dosing or non-opioid pain treatments, 2) increasing dosage, or 3) changing to TR[employer] LO[employer] CRANE. Given 04/17/2023 11:31 PM CDT 1 mg ketorolac (TORADOL) injection 15 mg 15 mg, Intravenous, ONCE, 1 dose, On Mon04/17/23 at 2330 Given 04/17/2023 10:56 PM CDT 15 mg metoclopramide (REGLAN) injection 10 mg 10 mg, Intravenous, ONCE, 1 dose, On Mon04/18/23 at 0300 Given 04/18/2023 2:37 AM CDT 10 mg ondansetron (ZOFRAN) injection 4 mg 4 mg, Intravenous, ONCE, 1 dose, On Mon04/18/23 at 0130 Given 04/18/2023 1:20 AM CDT 4 mg sodium chloride 0.9 % 1,000 mL IV bolus 1,000 mL, Intravenous, ONCE, 1 dose, On Mon04/17/23 at 2330, Administer over 0.5 Hours New Bag 04/17/2023 11:23 PM CDT 1,000 mL 2000 mL/hr sodium chloride 0.9 % 1,000 mL IV bolus 1,000 mL, Intravenous, ONCE, 1 dose, On Mon04/18/23 at 0130, Administer over 0.5 Hours New Bag 04/18/2023 1:20 AM CDT 1,000 mL 2000 mL/hr documented in this encounter Active and Recently Administered Medications Times are shown in CDT. Scheduled Medication Order 04/16/2023 04/17/2023 04/18/2023 HYDROmorphone (DILAUDID) injection 0.5 mg (COMPLETED) 0.5 mg, Intravenous, ONCE, 1 dose, On Mon04/18/23 at 0130, If pain not effectively managed, then contact provider to discuss possibly 1) adding scheduled opioid dosing or non-opioid pain treatments, 2) increasing dosage, or 3) changing to TR[employer] CRANE. 0120 (Given - Provid er: Jessie Ochoa, STACI) HYDROmorphone (DILAUDID) injection 1 mg (COMPLETED) 1 mg, Intravenous, ONCE, 1 dose, On Mon04/18/23 at 0000, If pain not effectively managed, then contact provider to discuss possibly 1) adding scheduled opioid dosing or non-opioid pain treatments, 2) increasing dosage, or 3) changing to TR[employer] CRANE. 233 (Given - Provider: Jessie Ochoa RN) ketorolac (TORADOL) injection 15 mg (COMPLETED) 15 mg, Intravenous, ONCE, 1 dose, On Mon04/17/23 at 2330 2256 (Given - Provider: Delon Mackey RN) metoclopramide (REGLAN) injection 10 mg (COMPLETED) 10 mg, Intravenous, ONCE, 1 dose, On Mon04/18/23 at 0300 0237 (Given - Provid er: Isabel Grove RN) ondansetron (ZOFRAN) injection 4 mg (COMPLETED) 4 mg, Intravenous, ONCE, 1 dose, On Mon04/18/23 at 0130 0120 (Given - Provid er: Jessie Ochoa, STACI) sodium chloride 0.9 % 1,000 mL IV bolus (COMPLETED) 1,000 mL, Intravenous, ONCE, 1 dose, On Mon04/17/23 at 2330, Administer over 0.5 Hours 2323 (New Bag - Provider: Jessie Ochoa, STACI) 0046 (Stopped - Provider: Jessie Ochoa, STACI) sodium chloride 0.9 % 1,000 mL IV bolus (COMPLETED) 1,000 mL, Intravenous, ONCE, 1 dose, On Mon04/18/23 at 0130, Administer over 0.5 Hours 0120 (New Bag - Provider: Jessie Ochoa, RN)0209 (Stopped - Provider: Jessie Ochoa, RN) documented in this encounter Additional Health Concerns Assessment Noted Time PHQ-9 Depression Total Score: 0 04/02/20 21 9:00 AM CDT documented as of this encounter Care Teams Warehouse Record Clerk Relationship Specialty Start Date End Date Michele Solis APRN, SHARLENE #2 [facility] [address] [place] [address] PCP - General Advanced Practice Nurse 08/31/22 Michele Solis APRN, SHARLENE #2 [facility] [address] [place] [address] Nurse Practitioner Advanced Practice Nurse 01/06/20 Frank Gamboa MD #2 [facility] [address] [place] [address] Consulting Physician Urology 09/29/22 documented as of this encounter
== END 2024-06-21 10:53 | disposition home or self-care (01) ==
PROVIDERS: Emergency Provider Nurse Practitioner Family
DX: L30.9 Dermatitis, unspecified (principal); R11.2 Nausea with vomiting, unspecified; F12.90 Cannabis use, unspecified, uncomplicated; Z20.822 Contact with and (suspected) exposure to COVID-19
CPT/HCPCS: 87426; 87804; 99213; G0463

== ENCOUNTER 2024-06-26 10:25 | Emergency (ER) | payer OTHER, SELFPAY ==
[2024-06-26 10:31] VITALS: BP 129/73; PULSE 70; RESP 18; TEMP 36.6; O2SAT 100
--- NOTE | 2024-06-26 10:45 | WPDEDEXPGENP ---
HPI - General Ped General Chief complaint: Fever Stated complaint: Fever Time Seen by Provider: 06/26/24 10:45 History of Present Illness HPI narrative: 33 y/o male presented for c/o fever up to 100 and a positive covid test 3 days ago. States while at his job today, they told him to get checked before returning. Pt states he also had 2 negative covid tests after the positive test. No vomiting x3 days.Pt was seen in clinic for the same 06/21. Tested negative for flu and covid. Pt continues to report a red itchy rash to the right side of abdomen extending to under arm since he was seen in [place] for the same. Has taken the steroid as prescribed, and says the rash is improving. Denies lip, tongue, or throat swelling, shortness of breath or wheezing. Denies changes to soap, detergent, lotion, or any other exposures. No one else in the house or any contacts with similar symptoms. Related Data Home Medications ?Medication ?Instructions ?Recorded ?Confirmed ?Last Taken ?Type tamsulosin 0.4 mg capsule (Flomax) 0.4 mg PO DAILY 06/26/24 Unknown History Allergies Allergy/AdvReac Type Severity Reaction Status Date / Time No Known Allergies Allergy Verified 06/26/24 10:46 PMFSH Past Medical History Medical History Eczema Kidney stone Surgical History Surgical History No pertinent past surgical history Family History Family History Mother Family history non-contributory Social History Social History Social History: Denies smoking or drinking Smoking status: Never smoker Second hand tobacco smoke exposure: No Alcohol intake: never Substance use: current Substance use type: marijuana Other substance usage details: social Living arrangements: with family Gender identity (if verbalized by the patient): Male Sexual Orientation (if Verbalized by the Patient): Straight or Heterosexual Spiritual care concerns: No Course Vital Signs Vital signs: Vital Signs Temperature 97.9 F 06/26/24 10:31 Pulse Rate 70 06/26/24 10:31 Respiratory Rate 18 06/26/24 10:31 Blood Pressure 129/73 06/26/24 10:31 Pulse Oximetry 100 06/26/24 10:31 Oxygen Delivery Room Air 06/26/24 10:31 Temperature 97.9 F 06/26/24 10:31 Pulse Rate 70 06/26/24 10:31 Respiratory Rate 18 06/26/24 10:31 Blood Pressure 129/73 06/26/24 10:31 Pulse Oximetry 100 06/26/24 10:31 Oxygen Delivery Room Air 06/26/24 10:31 Medical Decision Making Vital Signs Vital Signs: Vital Signs Temperature 97.9 F 06/26/24 10:31 Pulse Rate 70 06/26/24 10:31 Respiratory Rate 18 06/26/24 10:31 Blood Pressure 129/73 06/26/24 10:31 Pulse Oximetry 100 06/26/24 10:31 Oxygen Delivery Room Air 06/26/24 10:31 Temperature 97.9 F 06/26/24 10:31 Pulse Rate 70 06/26/24 10:31 Respiratory Rate 18 06/26/24 10:31 Blood Pressure 129/73 06/26/24 10:31 Pulse Oximetry 100 06/26/24 10:31 Oxygen Delivery Room Air 06/26/24 10:31 Discharge Plan Discharge Clinical Impression: Viral infection Patient Disposition: Home, Self-Care Condition: Stable Instructions: Viral Syndrome (ED) Additional Instructions: Virus: flu and COVID negative. Recommend Flonase spray and Zyrtec (or Claritin/Angela) over the counter Cough syrup may cause drowsiness; avoid driving or take it at night time. Tylenol 1000mg every 8 hours as needed for pain Symptomatic treatment includes: rest, fluids, and increase humidity of the air at home. Follow up with your primary care provider in 1 week. Go to the ER for worsening symptoms or concerns. Skin: Continue to Wash with gentle soap and water only. Use skin cream such as hydrocortisone or Benadryl to reduce itchiness You can take Benadryl or Zyrtec for itching Avoid scratching when possible to prevent worsening of the condition and disruption of the skin that could lead to bacterial infection To relieve itching, place a cool washcloth or some ice over the area that itches, rather than scratching Follow up with primary care provider Go to the ER if rash worsens or you have chest pain, trouble breathing, become hoarse, or start wheezing, develop belly cramps, vomiting or feel dizzy. Patient Language: Salvadorean Prescriptions: No Action famotidine [Pepcid] 40 mg tablet 40 mg PO DAILY Qty: 10 0RF methylprednisolone [Medrol (Fernie)] 4 mg tablets,dose pack See Rx Instructions .ROUTE .COMPLEX Qty: 21 0RF Rx Instructions: orally per package directions tamsulosin [Flomax] 0.4 mg capsule 0.4 mg PO DAILY Follow-up/Referrals: PHYSICIAN NOT ON STAFF,NONSTAFF [Primary Care Provider] - Stand Alone Forms: Work/School Release IP Time of Disposition: 10:56
[2024-06-26 11:03] LABS: EDCOVIDSCREEN Negative (Negative); EDINFLUASCREEN Negative (Negative); EDINFLUBSCREEN Negative (Negative)
--- NOTE | 2024-06-26 11:04 | ED_ITS ---
HPI - Fever General Chief Complaint: Fever Stated Complaint: Fever Time Seen by Provider: 06/26/24 10:45 History of Present Illness HPI Narrative: 33 y/o male presented for c/o fever up to 100 and a positive covid test 3 days ago. Endorses headache today. States while at his job today, they told him to get checked before returning. Pt states he also had 2 negative covid tests after the positive test. No vomiting x3 days.Pt was seen in clinic for the same 06/21. Tested negative for flu and covid. Pt continues to report a red itchy rash to the right side of abdomen extending to under arm since he was seen in clinic for the same. Has taken the steroid as prescribed, and says the rash is improving. Denies lip, tongue, or throat swelling, shortness of breath or wheezing. Denies changes to soap, detergent, lotion, or any other exposures. No one else in the house or any contacts with similar symptoms. Related Data Home Medications ?Medication ?Instructions ?Recorded ?Confirmed ?Last Taken ?Type tamsulosin 0.4 mg capsule (Flomax) 0.4 mg PO DAILY 06/26/24 Unknown History Allergies Allergy/AdvReac Type Severity Reaction Status Date / Time No Known Allergies Allergy Verified 06/26/24 10:46 Review of Systems 2 Review of Systems: CONSTITUTIONAL: Denies body aches, fever, chills, or sweats. EYES: Denies visual changes, redness, or discharge. ENT: Denies rhinorrhea, congestion, or otalgia. CARDIOVASCULAR: Denies chest pain, palpitations, or edema. RESPIRATORY: Denies dyspnea. GASTROINTESTINAL: Denies abdominal pain, nausea, vomiting, or diarrhea. SKIN: reports rash, itching MUSCULOSKELETAL: Denies back pain, joint pain, or myalgia. NEUROLOGIC: reports headache PMFSH Past Medical History Medical History Eczema Kidney stone Surgical History Surgical History No pertinent past surgical history Family History Family History Mother Family history non-contributory Social History Social History Social History: Denies smoking or drinking Smoking status: Never smoker Second hand tobacco smoke exposure: No Alcohol intake: never Substance use: current Substance use type: marijuana Other substance usage details: social Living arrangements: with family Gender identity (if verbalized by the patient): Male Sexual Orientation (if Verbalized by the Patient): Straight or Heterosexual Spiritual care concerns: No Exam 2 Narrative: GENERAL: well-appearing, no acute distress. EYES: conjunctivae clear ENT: Mucous membranes moist. TM pearly vogt with normal light reflex bilaterally; no tragal tenderness. Oropharynx erythematous without lesions. Tonsils enlarged and without exudate. No drooling, no hoarseness, no trismus, uvula midline. No tripod positioning, hot potato voice, or soft palate swelling. NECK: Supple. No lymphadenopathy CHEST: Clear to auscultation, breath sounds equal. No respiratory distress, speaks in full sentences. HEART: Regular rate and rhythm. No murmur heard. SKIN: Warm, dry, right abdominal erythematous papular rash extending to axilla. Does not cross midline. Appears fading and minimal to the center with darker border. NEURO: Alert and oriented x3. GI: Abdomen image: 1. area of erythematous papular rash Course Course Emergency Course: Patient is aware of diagnosis, understands and agrees to treatment plan. Anticipatory guidance given. Patient agrees to follow-up as directed and is aware of reasons to seek care at the emergency department. Portions of this record may have been created with voice recognition software Level of Care: Express Care Visit Vital Signs Vital signs: Vital Signs Temperature 97.9 F 06/26/24 10:31 Pulse Rate 70 06/26/24 10:31 Respiratory Rate 18 06/26/24 10:31 Blood Pressure 129/73 06/26/24 10:31 Pulse Oximetry 100 06/26/24 10:31 Oxygen Delivery Room Air 06/26/24 10:31 Temperature 97.9 F 06/26/24 10:31 Pulse Rate 70 06/26/24 10:31 Respiratory Rate 18 06/26/24 10:31 Blood Pressure 129/73 06/26/24 10:31 Pulse Oximetry 100 06/26/24 10:31 Oxygen Delivery Room Air 06/26/24 10:31 MDM - Fever MDM Narrative Medical decision making narrative: Negative and COVID. Dermatitis is improving. Discussed physical exam findings. Advised supportive measures and signs/symptoms to go to the ER. Pt is appropriate for outpt treatment and f/u. Differential Diagnosis Differential diagnosis: Likely cellulitis, gastroenteritis, viral infection, sepsis and influenza Lab Data Labs: Lab Results 06/26/24 Range/Units 11:02 POC Influenza A Ag Negative (Negative) POC Influenza B Ag Negative (Negative) POC SARS CoV-2 Ag Negative (Negative) Discharge Plan Discharge Clinical Impression: Viral infection Patient Disposition: Home, Self-Care Condition: Stable Instructions: Viral Syndrome (ED) Additional Instructions: Virus: flu and COVID negative. Recommend Flonase spray and Zyrtec (or Claritin/Angela) over the counter Cough syrup may cause drowsiness; avoid driving or take it at night time. Tylenol 1000mg every 8 hours as needed for pain Symptomatic treatment includes: rest, fluids, and increase humidity of the air at home. Follow up with your primary care provider in 1 week. Go to the ER for worsening symptoms or concerns. Skin: Continue to Wash with gentle soap and water only. Use skin cream such as hydrocortisone or Benadryl to reduce itchiness You can take Benadryl or Zyrtec for itching Avoid scratching when possible to prevent worsening of the condition and disruption of the skin that could lead to bacterial infection To relieve itching, place a cool washcloth or some ice over the area that itches, rather than scratching Follow up with primary care provider Go to the ER if rash worsens or you have chest pain, trouble breathing, become hoarse, or start wheezing, develop belly cramps, vomiting or feel dizzy. Patient Language: [place] Prescriptions: No Action famotidine [Pepcid] 40 mg tablet 40 mg PO DAILY Qty: 10 0RF methylprednisolone [Medrol (Fernie)] 4 mg tablets,dose pack See Rx Instructions .ROUTE .COMPLEX Qty: 21 0RF Rx Instructions: orally per package directions tamsulosin [Flomax] 0.4 mg capsule 0.4 mg PO DAILY Follow-up/Referrals: PHYSICIAN NOT ON STAFF,NONSTAFF [Primary Care Provider] - Stand Alone Forms: Work/School Release IP Time of Disposition: 10:56
== END 2024-06-26 11:00 | disposition home or self-care (01) ==
PROVIDERS: Emergency Provider Nurse Practitioner Family
DX: B34.9 Viral infection, unspecified (principal); Z20.822 Contact with and (suspected) exposure to COVID-19
CPT/HCPCS: 87426; 87804; 99212; G0463

== ENCOUNTER 2024-07-30 09:38 | Emergency (ER) | payer OTHER, SELFPAY ==
[2024-07-30 09:43] VITALS: BP 130/69; PULSE 90; RESP 16; TEMP 36.4; O2SAT 100
--- NOTE | 2024-07-30 09:45 | ED.URI ---
HPI - URI/Sore Throat General Chief Complaint: Upper Respiratory Infection Stated Complaint: Sore Throat/Headache/Diarrhea Time Seen by Provider: 07/30/24 09:57 Source: patient and RN notes reviewed Mode of arrival: ambulatory Limitations: no limitations History of Present Illness HPI Narrative: 33-year-old male presents concern for headache, cough, sore throat that started last night. He reports chest congestion. He denies taking any medications for his symptoms. MD elicited complaint: cough and sore throat Related Data Home Medications ?Medication ?Instructions ?Recorded ?Confirmed ?Last Taken ?Type tamsulosin 0.4 mg capsule (Flomax) 0.4 mg PO DAILY 06/26/24 Unknown History oxycodone-acetaminophen 5 mg-325 tablet 07/30/24 Unknown History mg tablet Allergies Allergy/AdvReac Type Severity Reaction Status Date / Time No Known Allergies Allergy Verified 06/26/24 10:46 Review of Systems Review of Systems: CONSTITUTIONAL: Reports malaise, tactile fever. EYES: Denies visual changes, redness, or discharge. ENT: Reports rhinorrhea, congestion, and sore throat. CARDIOVASCULAR: Denies chest pain, palpitations, or edema. RESPIRATORY: Reports cough. Denies dyspnea. GASTROINTESTINAL: Denies abdominal pain, nausea, vomiting, diarrhea SKIN: Denies rash or itching. MUSCULOSKELETAL: Reports myalgia. NEUROLOGIC: Reports headache. All systems reviewed & are unremarkable except as noted in HPI and below PMFSH Past Medical History Medical History Eczema Kidney stone Surgical History Surgical History No pertinent past surgical history Family History Family History Mother Family history non-contributory Social History Social History Social History: Denies smoking or drinking Smoking status: Never smoker Second hand tobacco smoke exposure: No Alcohol intake: never Substance use: current Substance use type: marijuana Other substance usage details: social Living arrangements: with family Gender identity (if verbalized by the patient): Male Sexual Orientation (if Verbalized by the Patient): Straight or Heterosexual Spiritual care concerns: No Comments At time of signature, agree with nursing past medical, surgical, social and family history. There is no relevant family history pertinent to the presenting complaint Exam Narrative: GENERAL: Nontoxic-appearing, well-nourished, and in no acute distress. HEAD: Normocephalic EYES: PERRLA, conjunctivae clear ENT: Nares clear. Mucous membranes moist. TM pearly vogt with sharp light reflex bilaterally; no tragal tenderness. Oropharynx not erythematous without lesions. Tonsils not enlarged and without exudate, no drooling, no hoarseness, no trismus, uvula midline. NECK: Supple. No lymphadenopathy CHEST: Wheeze noted in right upper lung, otherwise Clear to auscultation, breath sounds equal. No rhonchi, rales, or stridor. No respiratory distress, speaks in full sentences. HEART: Regular rate and rhythm. No murmur heard. SKIN: Warm, dry, no rash. NEURO: Alert and oriented x3. PSYCH: Normal mood and affect Course Course Emergency Course: Patient is aware of diagnosis, understands and agrees to treatment plan. Anticipatory guidance given. Patient agrees to follow-up as directed and is aware of reasons to seek care at the emergency department. Portions of this record may have been created with voice recognition software Level of Care: Express Care Visit Vital Signs Vital signs: Reviewed. MDM - URI/Sore Throat MDM Narrative Medical decision making narrative: Differential diagnosis considered: Gomes virus, strep pharyngitis, allergic rhinitis, upper respiratory tract infection, sinusitis, rhinosinusitis, nasopharyngitis. viral pharyngitis, otitis media, otitis externa, pneumonia, bronchitis, viral cough syndrome, viral syndrome, and influenza. Exam findings show no acute concerns or changes; patient is non-toxic appearing and is in no distress. Patient is appropriate for outpatient treatment and follow-up. Lab Data Attestation: I reviewed the patient's lab results. Critical Care Time Critical Care Time Critical Care Time: No Discharge Plan Discharge Clinical Impression: Upper respiratory infection Patient Disposition: Home, Self-Care Condition: Stable Instructions: Upper Respiratory Infection (ED) Additional Instructions: Your rapid COVID and flu tests are negative Your rapid strep swab was negative today at [facility]. A throat culture will be sent to the laboratory for further testing. If the test is positive, you will receive a phone call within 48 hours and an appropriate antibiotic will be initiated at that time. Your symptoms are likely due to a viral illness, which is not treated with antibiotics. Viral symptoms can be present for up to a few weeks. -Alternate Tylenol and Motrin per package directions for fever or pain. -Antihistamine medication such as Benadryl at night and Zyrtec during the day can help improve symptoms. -Eat and drink things that are easy to swallow, like tea or soup, or popsicles to suck on. -Oral rinses such as: Salt water gargles and/or may use topical anesthetic (eg. Chloraseptic spray) or lozenges to relieve dryness or throat pain). -Frequent hand washing or hand cigarette paper tester is one of the best ways to prevent spread of infection. -Follow up with primary care provider in 2-3 days if condition is not improving; or seek ER visit if you have trouble breathing, cannot drink enough fluids, have muffled voice, difficulty opening your mouth, or severe swelling. Patient Language: Ukrainian Prescriptions: New pseudoephedrine HCl [12 Hour Decongestant] 120 mg tablet extended release 120 mg PO Q12H PRN (Reason: nasal congestion) Qty: 20 0RF dextromethorphan-guaifenesin [Mucinex DM] 60-1,200 mg tablet extended release 12 hr 1 tablet PO Q12H Qty: 12 0RF albuterol sulfate 90 mcg/actuation HFA aerosol inhaler 2 puff INHALATION QID PRN (Reason: shortness of breath or wheezing) Qty: 8.5 0RF No Action tamsulosin [Flomax] 0.4 mg capsule 0.4 mg PO DAILY oxycodone-acetaminophen 5-325 mg tablet Follow-up/Referrals: PHYSICIAN NOT ON STAFF,NONSTAFF [Primary Care Provider] - Stand Alone Forms: Work/School Release IP Time of Disposition: 10:08
[2024-07-30 10:04] LABS: EDCOVIDSCREEN Negative (Negative); EDINFLUASCREEN Negative (Negative); EDINFLUBSCREEN Negative (Negative); EDSTREPNEGPOS1 Negative (Negative)
--- OUTSIDE RECORDS SUMMARY | 2024-07-30 10:28 | XMS_ITS | Encounter Summary ---
Author Organization [facility] Address [address] [facility] [place] [address] Phone Care Team Providers Care Lead Portfolio Manager Name Role Phone Michele Solis APRN, SHARLENE Unavailable Michele Solis APRN, SHARLENE Primary Care Pr ovider Frank Gamboa MD Unavailable Lori Osborn MD Unavailable [phone] Joel Valencia APRN, BENCH MANAGER Unavailable [phone] Encounter Details Date Type Department Care Team (Late st Contact Info) Description 10/21/2022 Telephone [facility] [address] [place] [address] Michele Solis APRN, BENCH MANAGER #[address] [address] Social History Tobacco Use Types Packs/Day Years [...] suspected to have Coronavirus/COVID-19? No / Unsure 10/06/2022 11:47 AM CDT documented as of this encounter Plan of Treatment Upcoming Encounters Date Type Department Care Team (Late st Contact Info) Description 09/30/2024 8:15 AM CDT Office Visit [facility] - Family Medicine [facility] [place] [address] [place] [address] Michele Solis APRN, BENCH MANAGER #2 [facility] [address] [place] [address] documented as of this encounter Visit Diagnoses Not on filedocumented in this encounter Additional Health Concerns Assessment Noted Time PHQ-9 Depression Total Score: 0 04/02/20 21 9:00 AM CDT documented as of this encounter Care Teams Lead Portfolio Manager Relationship Specialty Start Date End Date Michele Solis APRN, BENCH MANAGER #[address] [address] PCP - General Advanced Practice Nurse 08/31/22 Michele Solis APRN, BENCH MANAGER #2 [facility] [address] [place] [address] Nurse Practitioner Advanced Practice Nurse 01/06/20 Frank Gamboa MD #2 [facility] [address] [place] [address] Consulting Physician Urology 09/29/22 Lori Osborn MD #[address] [facility] [address] Consulting Physician Urology 04/21/23 Joel Valencia APRN, BENCH MANAGER #[address] [place] [address] Nurse Practitioner Advanced Practice Nurse 11/21/23 documented as of this encounter
--- OUTSIDE RECORDS SUMMARY | 2024-07-30 10:28 | XMS_ITS | Clinical Summary ---
Author Organization [facility] Address [address] [place] [address] Phone Care Team Providers Care Aeronautical Drafter Name Role Phone Michele Solis APRN, SHARLENE Unavailable Michele Solis APRN, SHARLENE Primary Care Pr ovider Frank Gamboa MD Unavailable Lori Osborn MD Unavailable [phone] Joel Valencia APRN, SHARLENE Unavailable [phone] Allergies No known active allergies Medications ergocalciferol (VITAMIN D) 06296 UNIT CapsuleIndicatio ns:Vitamin D deficiency Take 1 Capsule by mouth once a week for 12 doses. 12 Capsule 5 10/01/19 25 Active oxyCODONE-acetam inophen (Percocet) 5-325 MG TabletIndication s:Renal colic on right side Take 1 Tablet by mouth every 4 hours as needed for Severe pain. 12 Tablet 5 Active Suvorexant (Belsomra) 10 MG TabletIndication s:Shift work sleep disorder Take 1 Tablet by mouth nightly as needed (insomnia). 14 Tablet 5 Active ondansetron (ZOFRAN-ODT) 4 MG TABLET DISPERSIBLE Take 1 Tablet by mouth every 8 hours as needed for Nausea - 1st line. 15 Tablet 5 Active tamsulosin (FLOMAX) 0.4 MG Capsule Take 0.4 mg by mouth daily as needed. 07/01/19 Discontinu ed(Therapy completed) methylPREDNISolo ne (MEDROL DOSPACK) 4 MG Tablet Therapy Pack See product package insert for dosing schedule 21 Tablet 3 07/01/19 Discontinu ed(Therapy completed) ketorolac (TORADOL) 10 MG Tablet Take 1 Tablet by mouth every 6 hours as needed for Moderate or more severe pain. 15 Tablet 3 07/01/19 Discontinu ed(Therapy completed) HYDROcodone-acet aminophen (NORCO) 5-325 MG TabletIndication s:Right ureteral stone Take 1 Tablet by mouth every 4 hours as needed for Mild or more severe pain. 5 Tablet 3 07/01/19 Discontinu ed(Therapy completed) ondansetron (ZOFRAN-ODT) 4 MG TABLET DISPERSIBLE Take 1 Tablet by mouth every 8 hours as needed for Nausea - 1st line. 20 Tablet 3 07/01/19 Discontinu ed(Therapy completed) ketorolac (TORADOL) 10 MG Tablet Take 1 Tablet by mouth every 6 hours as needed for Moderate or more severe pain. 20 Tablet 3 07/01/19 25 Discontinu ed(Therapy completed) HYDROcodone-acet aminophen (NORCO) 5-325 MG TabletIndication s:Ureterolithias is Take 1 Tablet by mouth every 4 hours as needed for Severe pain. 20 Tablet 3 07/26/19 Discontinu ed(Alterna te therapy) cyclobenzaprine (FLEXERIL) 5 MG Tablet Take 1 Tablet by mouth 3 times daily as needed for Muscle spasms. 15 Tablet 3 07/01/19 Discontinu ed(Therapy completed) Active Problems Problem Noted Date Diagnosed Date Hyperlipidemia 07/14/2024 Vitamin D deficiency 07/14/2024 Herpes zoster without complication 07/01/2024 Obesity (BMI 30-39.9) 07/01/2024 Fatigue 07/01/2024 Renal stone 03/31/2020 Encounters Date Type Department Care Team Description 07/26/2024 4:15 PM BASS SINGER Office Visit [facility] [address] [place] [address] Michele Solis APRN, CNP Renal colic on right side (Primary Dx); Shift work sleep disorder Discharge Disposition: Discharged to home or Selfcare 07/26/2024 8:29 AM BASS SINGER - 07/26/2024 11:34 AM BASS SINGER Emergency [facility] [address] [place] [address] Issac Valles MD Renal colic on right side Discharge Disposition: Discharged to home or Selfcare 07/26/2024 Travel 07/14/2024 Results Follow-Up [facility] [address] [place] [address] Donell Rosenbaum MD Hyperlipidemia, unspecified hyperlipidemia type (Primary Dx); Vitamin D deficiency 07/01/2024 9:50 AM BASS SINGER Lab [facility] [address] [address] Zaire Morales Lab/Ancillary Vitamin D deficiency; Fatigue, unspecified type; Obesity (BMI 30-39.9) Discharge Disposition: Discharged to home or Selfcare 07/01/2024 9:15 AM BASS SINGER Office Visit [facility] [address] [place] [address] Donell Rosenbaum MD Herpes zoster without complication (Primary Dx); Obesity (BMI 30-39.9); Fatigue, unspecified type; Vitamin D deficiency Discharge Disposition: Discharged to home or Selfcare 07/01/2024 Telephone [facility] [address] [place] [address] Michele Solis APRN, CNP Form Completion 07/01/2024 Travel from Last 3 Months Family History Medical History Relation Name Comments No Known Problems Father No Known Problems Mother Relation Name Status Comments Father Alive Mother Alive Social History Tobacco Use Types Packs/Day Years Used Date Smoking Tobacco: Never Smokeless Tobacco: Never Tobacco Cessation:Counseling Given: No Alcohol Use Standard Drinks/Week Comments No 0 (1 standard drink = 0.6 oz pur e alcohol) [facility] Utilities Answer Date Recorded In the past 12 months has th e electric, gas, oil, or water company threatened to shut off services in your home? No 07/26/2024 Social Connection and Isolation Panel [NHANES] A nswer Date Recorded In a typical week, how many times do you talk on the phone with family, friends, or neighbors? Never 07/26/19 How often do you get togethe r with friends or relatives? Never 07/26/2024 How often do you attend chur ch or hoahaoism services? Never 07/26/2024 Do you belong to any clubs o r organizations such as sikh groups, unions, fraternal or athletic groups, or school groups? No 07/26/2024 How often do you attend meet ings of the clubs or organizations you belong to? Never 07/26/2024 Are you , , di vorced, , never , or living with a partner? Living with partner 07/26/2024 AUDIT-C Answer Date Recorded Q1: How often do you have a drink containing alcohol? Never 07/26/2024 Q2: How many drinks containi ng alcohol do you have on a typical day when you are drinking? Patient does not drink Q3: How often do you have si x or more drinks on one occasion? Never 07/26/2024 Overall Financial Resource Strain (CARDIA) Answe r Date Recorded How hard is it for you to pa y for the very basics like food, housing, medical care, and heating? Somewhat hard 07/26/2024 PHQ-2 Answer Date Recorded Total Score - Questions 1-9 0 06/19 [facility] [place] [facility] - Occupational Stress Questionnaire Answer Date Recorded Do you feel stress - tense, restless, nervous, or anxious, or unable to sleep at night because your mind is troubled all the time - these days? Very much 07/26/2024 Exercise Vital Sign Answer Date Recorde d On average, how many days pe r week do you engage in moderate to strenuous exercise (like a brisk walk)? 4 days 07/26/2024 On average, how many minutes do you engage in exercise at this level? 30 min 07/26/2024 Hunger Vital Sign Answer Date Recorded Within the past 12 months, y ou worried that your food would run out before you got the money to buy more. Sometimes true Within the past 12 months, t he food you bought just didn't last and you didn't have money to get more. Sometimes true 12/2024 PRAPARE - Transportation Answer Date Re corded In the past 12 months, has l ack of transportation kept you from medical appointments or from getting medications? No 12/2024 In the past 12 months, has l ack of transportation kept you from meetings, work, or from getting things needed for daily living? No 07/26/2024 Housing Stability Vital Sign Answer John e Recorded In the last 12 months, was t here a time when you were not able to pay the mortgage or rent on time? No 07/26/2024 In the past 12 months, how m any times have you moved where you were living? 0 07/26/2024 At any time in the past 12 m [facility], were you homeless or living in a intermediate (including now)? No 07/26/2024 Education Answer Date Recorded What is the highest level of school you have completed or the highest degree you have received? Some college, no degree 04/20/2023 Sexually Active Control Partners Comments Not Currently Female Sex and Gender Information Value Date Recorded Sex Assigned at Not on file Legal Sex Male 8:11 PM CDT Gender Identity Not on file Sexual Orientation Not on file Last Filed Vital Signs Vital Sign Reading Time Taken Comments Blood Pressure 134/76 07/26/2024 4:01 PM BASS SINGER Pulse 66 07/26/2024 4:01 PM BASS SINGER Temperature 36.2 C (97.2 F) 07/26/2024 4:01 PM BASS SINGER Respiratory Rate 16 07/26/2024 4:01 PM BASS SINGER Oxygen Saturation 98% 07/26/2024 4:01 PM BASS SINGER Inhaled Oxygen Concentration - - Weight 79.6 kg (175 lb 8 oz) 07/26/2024 4:01 PM BASS SINGER Height 165.1 cm (5' 5 ) 07/26/2024 4:01 PM BASS SINGER Body Mass Index 29.2 07/26/2024 4:01 PM BASS SINGER Plan of Treatment Upcoming Encounters Date Type Department Care Team (Late st Contact Info) Description 09/30/2024 8:15 AM CDT Office Visit [facility] [address] [place] [address] Michele Solis, AD TAKER, AWNING INSTALLER [address] [address] Health Maintenance Due Date Last Done Comments TdaP Immunization 1990 Hepatitis B Immunization (1 of 3 - 19+ 3-dose series) 2009 Influenza Immunization (#1) 2024 SARS-COV-2 Immunization ( - season) 2024 Respiratory Syncytial Virus (RSV) Immunization (Adult) (1 - 1-dose 75+ series) 2065 Hepatitis C Virus (HCV) Screening Completed 022 Meningococcal Immunization (ACWY) Aged Out No longer eligible based on patient's age to complete this topic Pneumococcal Immunization Combined Aged Out No longer eligible based on patient's age to complete this topic Rotavirus Immunization Aged Out No lo nger eligible based on patient's age to complete this topic Medical Devices Implanted Type Area Riprap Worker Device Identifier Shelf Expiration Date Model / Serial / Lot Stent Ureteral 6fr 2.1fr 26cm 2 Pigtail Curve 2 Durometer Taper Tip Loprfl Graduated Printed Piece Ultra - [id number] Implanted:Qty : 1 on 03/31/2020 by Robert Clemons MD at [facility] IMPLANT Left: Ureter [employer] 09/15/2022 [id number] / [id number] / [id number] Procedures Procedure Name Priority Date/Time Associated Diagnosis Comments XR ABDOMEN KUB FLAT PLATE STAT 07/26/2024 10:29 AM BASS SINGER URINALYSIS REFLEX IF INDICATED BY ABNORMAL RESULTS STAT 07/26/2024 8:21 AM BASS SINGER LIPID PANEL Today 07/01/2024 9:59 AM BASS SINGER Obesity (BMI 30-39.9) THYROID STIMULATING HORMONE (TSH) Today 07/01/2024 9:59 AM BASS SINGER Obesity (BMI 30-39.9) Fatigue, unspecified type VITAMIN B12 Today 07/01/2024 9:59 AM BASS SINGER Fatigue, unspecified type VITAMIN D, 25 HYDROXY TOTAL Today 07/01/2024 9:59 AM BASS SINGER Vitamin D deficiency HEPATITIS PANEL ACUTE (AHP) STAT 09/23/2021 3:00 PM CDT from Last 3 Months or Most Recently Relevant to Health Maintenance Results * XR ABDOMEN KUB FLAT PLATE (07/26/2024 10:29 AM BASS SINGER) Anatomical Region Laterality Modality Abdomen N/A Digital Radiogra phy 07/26/2024 10:5 1 AM BASS SINGER Impressions 07/26/2024 10:53 AM BASS SINGER IMPRESSION: No evidence of an acute abnormality. Moderate fecal material in the colon. No definite renal or ureteral calculi. Narrative 07/26/2024 10:53 AM BASS SINGER EXAM DESCRIPTION: XR ABDOMEN KUB FLAT PLATE REASON FOR STUDY: Rt flank pain since last night. Hx. Renal stones TECHNIQUE: Frontal radiographic view of the abdomen. COMPARISON: CT abdomen and pelvis 11/25/2023. FINDINGS: BOWEL: Nonobstructive gas pattern. SOFT TISSUES: No abnormal calcifications. There is moderate fecal material in the colon. LINES/TUBES: None. BONES: No acute osseous abnormality. THIS IS AN ELECTRONICALLY VERIFIED FINAL REPORT 07/26/2024 10:51 AM - Electronically signed by Izaiah Henderson M.D. CH: BARON Report ID: [id number] Reading Location: [id number] Procedure Note Izaiah Henderson Jr., MD - 07/26/2024 EXAM DESCRIPTION: XR ABDOMEN KUB FLAT PLATE REASON FOR STUDY: Rt flank pain since last night. Hx. Renal stones TECHNIQUE: Frontal radiographic view of the abdomen. COMPARISON: CT abdomen and pelvis 11/25/2023. FINDINGS: BOWEL: Nonobstructive gas pattern. SOFT TISSUES: No abnormal calcifications. There is moderate fecal material in the colon. LINES/TUBES: None. BONES: No acute osseous abnormality. THIS IS AN ELECTRONICALLY VERIFIED FINAL REPORT 07/26/2024 10:51 AM - Electronically signed by Izaiah Henderson M.D. CH: BARON Report ID: [id number] Reading Location: [id number] IMPRESSION: No evidence of an acute abnormality. Moderate fecal material in the colon. No definite renal or ureteral calculi. Issac Valles MD IMG DIAGNOSTIC ORDERABLES Final Result * (ABNORMAL) URINALYSIS REFLEX IF INDICATED BY ABNORMAL RESULTS (07/26/2024 8:21 AM BASS SINGER) SPECIFIC GRAVITY 1.025 1.003 - 1.030 07/26/2024 9:24 AM BASS SINGER [facility] URINE PH 6.0 5.0 - 9.0 07/26/2024 9:24 AM BASS SINGER [facility] WBC ESTERASE Negative Negative 07/26/2024 9:24 AM BASS SINGER [facility] NITRITE Negative Negative 07/26/2024 9:24 AM BASS SINGER [facility] PROTEIN, RANDOM URINE 30 mg/dL(A) Negative 07/26/2024 9:24 AM BASS SINGER [facility] URINE GLUCOSE, QUAL Negative Negative 07/26/2024 9:24 AM BASS SINGER [facility] URINE KETONES Negative Negative 07/26/2024 9:24 AM BASS SINGER [facility] UROBILINOGEN Normal Normal mg/dL 07/26/2024 9:24 AM BASS SINGER [facility] URINE BLOOD Negative Negative trish/ul 07/26/2024 9:24 AM [facility] URINALYSIS COLOR Yellow 07/26/2024 9:24 AM [facility] URINALYSIS CLARITY Slightly Cloudy 07/26/2024 9:24 AM BASS SINGER [facility] WBC (Urine) 6-10(A) Negative, 0-5 /hpf 07/26/2024 9:24 AM BASS SINGER [facility] URINE RBC'S 0-2 Negative, 0-2 /hpf 07/26/2024 9:24 AM BASS SINGER [facility] EPITHELIAL CELLS Occasional /lpf 07/26/2024 9:24 AM BASS SINGER [facility] BACTERIA, URINE Few(A) Negative /hpf 07/26/2024 9:24 AM BASS SINGER [facility] URINE MUCOUS Many 07/26/2024 9:24 AM BASS SINGER [facility] Urine URINE SPECIMEN COLLECTION, CLEAN CATCH / Unknown Non-Phlebotomy Collection / Unknown 07/26/2024 8:21 AM BASS SINGER 07/26/2024 8:42 AM BASS SINGER us Issac Valles MD URINE ORDERABLES Final Res ult [facility] [address] [place] [address] * VITAMIN D, 25 HYDROXY TOTAL (07/01/2024 9:59 AM BASS SINGER) VITAMIN D, 25 HYDROX 9.6 ng/mL 07/01/2024 1:20 PM BASS SINGER [facility] Blood Venipuncture / Unknown 07/01/2024 9:59 AM BASS SINGER 07/01/2024 9:59 AM BASS SINGER Narrative [facility] - 07/01/2024 1:20 PM BASS SINGER Published reference ranges for Vitamin D vary depending on time and place and method of testing, and on patient's age, sex, ethnicity and levels of other measured analytes such as parathormone, calcium and phosphorus. The result should be evaluated in conjunction with clinical findings and suspicions. [place] [facility] Clinical Practice Guidelines: Status Vitamin D levels (ng/mL) Deficient <=20 At risk of inadequacy 21-29 Sufficient 30-100 Centers of Disease Control and Prevention Guidelines: Status Vitamin D levels (ng/mL) Deficient <13 At risk of inadequacy 13-19 Sufficient 20-50 Possibly harmful >50 References: [place] [facility], 2010 Dietary reference intakes for calcium and vitamin D. [place]: The National Academies Press. Stephany M, Anum N, Zoe BERRY, et al., Evaluation, treatment, and prevention of Vitamin D deficiency: an Endocrinology Clinical Practice Guideline. JCEM 2011 96: 7 2318-8970. Jak A, Rj C, Leonor D, et al., Vitamin D Status: [place], 4828-1769, [facility] data brief, no. 59, MD [place]: National [place] [employer] Health Statistics. 2011. Donell Rosenbaum MD CHEMISTRY ORDERABLES Final Result Performing Organization Address [facility]/ZIP Co de Phone Number [facility] [address] [place] [address] * VITAMIN B12 (07/01/2024 9:59 AM BASS SINGER) VITAMIN B12 646 213 - 816 pg/mL 07/01/2024 1:20 PM BASS SINGER [facility] Blood Venipuncture / Unknown 07/01/2024 9:59 AM BASS SINGER 07/01/2024 9:59 AM BASS SINGER Donell Rosenbaum MD CHEMISTRY ORDERABLES Final Result [facility] [address] [place] [address] * THYROID STIMULATING HORMONE (TSH) (07/01/2024 9:59 AM BASS SINGER) TSH 2.103 0.300 - 5.000 mIU/L 07/01/2024 1:11 PM BASS SINGER [facility] Blood Venipuncture / Unknown 07/01/2024 9:59 AM BASS SINGER 07/01/2024 9:59 AM BASS SINGER Donell Rosenbaum MD CHEMISTRY ORDERABLES Final Result [facility] [address] [place] [address] * (ABNORMAL) LIPID PANEL (07/01/2024 9:59 AM BASS SINGER) Pathologist [facility] CHOLESTEROL 159 <200 mg/dL 07/01/2024 12:54 PM BASS SINGER [facility] TRIGLYCERIDES 187(H) <150 mg/dL 07/01/2024 12:54 PM BASS SINGER [facility] HDL CHOLESTEROL 42 >40 mg/dL 12:54 PM BASS SINGER [facility] LDL 80 <130 mg/dL 07/01/2024 12:54 PM BASS SINGER [facility] VLDL 37 10 - 50 mg/dL 07/01/2024 12:54 PM BASS SINGER [facility] CHOL/HDL RATIO 3.8 0.0 - 4.4 07/01/2024 12:54 PM BASS SINGER [facility] NON-HDL CHOLESTEROL 117 <130 mg/dL 07/01/2024 12:54 PM BASS SINGER [facility] IS THE PATIENT REQUIRED TO BE FASTING? Yes 07/01/2024 12:54 PM BASS SINGER [facility] HAS THE PATIENT BEEN FASTING? Yes 07/01/2024 12:54 PM [facility] Blood Venipuncture / Unknown 07/01/2024 9:59 AM BASS SINGER 07/01/2024 9:59 AM BASS SINGER us Donell Rosenbaum MD CHEMISTRY ORDERABLES Final Result [facility] [address] [place] [address] * Hepatitis Panel Acute (AHP) (09/23/2021 3:00 PM CDT) Pathologist [facility] HEPATITIS A IGM ANTIBODY NON DETECTED NON DETECTED [facility] [id number] 09/24/2021 4:22 PM CDT [facility] Comment: IGM Antibodies to HAV not detected. Does not exclude early acute or recovered HAV infection. HEP B CORE AB (IGM) NON DETECTED NON DETECTED [place] [id number] 09/24/2021 4:22 PM CDT [facility] Comment:IGM anti-HBC not det ected. Does not exclude the possibility of exposure to or infection with HBV. HEPATITIS B SURFACE ANTIGEN NON DETECTED NON DETECTED [address] B 09/24/2021 4:22 PM CDT [facility] Comment:A nonreactive test r esult does not exclude the possibility of exposure to or infection with Hepatitis B virus. A nonreactive test result in individuals with prior exposure to hepatitis B may be due to antigen levels below the detection limit of this assay or lack of antigen reactivity to the antibodies in this assay. hepatitis C antibody 0.12 <1 S/CO [address] 09/24/2021 4:22 PM CDT [facility] Comment: Signal/Cutoff ratio < 0.79 is Nondetected Signal/Cutoff ratio 0.80-0.99 is Grayzone Signal/Cutoff ratio > 0.99 is Detected Supplemental assays are recommended if signal/cutoff ratio is >/=1.00. Signal/cutoff ratio result >/= 5.00 is 97% predictive of positivity for recombinant immunoblot assay (RIBA) and will be reported to the [place] Department of Public Health as required. Blood Venipuncture / Unknown 09/23/2021 3:00 PM CDT 09/23/2021 4:34 PM CDT us Janna Earl APRN, AWNING INSTALLER HEMATOLOGY ORDERABLES Final Result [facility] [address] [place] [address], from Last 3 Months or Most Recently Relevant to Health Maintenance Insurance [facility] Care Teams Aeronautical Drafter Relationship Specialty Start Date End Date Michele Solis APRN, AWNING INSTALLER [address] [address] PCP - General Advanced Practice Nurse 08/31/22 Michele Solis APRN, AWNING INSTALLER [address] [address] Nurse Practitioner Advanced Practice Nurse 01/06/20 Frank Gamboa MD #[address] [address] Consulting Physician Urology 09/29/22 Lori Osborn MD #[address] [address] Consulting Physician Urology 04/21/23 Joel Valencia APRN, AWNING INSTALLER [address] [place] [address] Nurse Practitioner Advanced Practice Nurse 11/21/23
== END 2024-07-30 10:17 | disposition home or self-care (01) ==
PROVIDERS: Emergency Provider Nurse Practitioner
DX: J06.9 Acute upper respiratory infection, unspecified (principal); Z20.822 Contact with and (suspected) exposure to COVID-19
CPT/HCPCS: 87081; 87426; 87804; 87880; 99213; G0463

== ENCOUNTER 2024-08-27 13:54 | Emergency (ER) | payer OTHER, SELFPAY ==
[2024-08-27 14:03] VITALS: BP 130/68; PULSE 84; RESP 20; TEMP 36.7; O2SAT 99
--- NOTE | 2024-08-27 14:12 | ED_ITS ---
HPI - URI/Sore Throat General Chief Complaint: Upper Respiratory Infection Stated Complaint: Sore Throat/Headache/Body Aches Time Seen by Provider: 08/27/24 14:15 Source: patient, RN notes reviewed and old records reviewed Mode of arrival: ambulatory Limitations: no limitations History of Present Illness HPI Narrative: 33 [facility] complaints of cough, sore throat, headache congestion and runny nose and body aches which started last evening. Patient report that he has been taking Delsym cough syrup and Excedrin migraine Patient reports that he has had felt hot and cold and feverish. Patient denies any nausea or vomiting or any diarrhea. MD elicited complaint: cough, sore throat and other (headache, congestion and body aches) Onset (ago): day(s) (started last evening) Consistency: constant Pain scale (0-10): 7 Able to tolerate fluids by mouth: Yes Treatments prior to arrival: other (Excedrin migraine and Delsym cough syrup) Related Data Home Medications ?Medication ?Instructions ?Recorded ?Confirmed ?Last Taken ?Type tamsulosin 0.4 mg capsule (Flomax) 0.4 mg PO DAILY 06/26/24 08/27/24 Unknown History ergocalciferol (vitamin D2) 1,250 08/27/24 Unknown History mcg (50,000 unit) capsule Allergies Allergy/AdvReac Type Severity Reaction Status Date / Time No Known Allergies Allergy Verified 08/27/24 14:10 Review of Systems Review of Systems: CONSTITUTIONAL:Reports malaise, chills, sweats, or fever. EYES: Denies visual changes, redness, or discharge. ENT: Reports rhinorrhea, congestion, sinus pain,no otalgia and burning sore throat. CARDIOVASCULAR: Denies chest pain, palpitations, or edema. RESPIRATORY: Reports cough.? Denies dyspnea. GASTROINTESTINAL: Denies abdominal pain, nausea, vomiting, diarrhea SKIN: Denies rash or itching. MUSCULOSKELETAL:Reports myalgia. NEUROLOGIC: Reports headache. All systems reviewed & are unremarkable except as noted in HPI and below PMFSH Past Medical History Medical History Eczema Kidney stone Surgical History Surgical History No pertinent past surgical history Family History Family History Mother Family history non-contributory Social History Social History Social History: Denies smoking or drinking Smoking status: Never smoker Second hand tobacco smoke exposure: No Alcohol intake: never Substance use: current Substance use type: marijuana Other substance usage details: social Living arrangements: with family Gender identity (if verbalized by the patient): Male Sexual Orientation (if Verbalized by the Patient): Straight or Heterosexual Spiritual care concerns: No Comments At time of signature, agree with nursing past medical, surgical, social and family history. There is no relevant family history pertinent to the presenting complaint Exam Narrative: GENERAL: Well-appearing, well-nourished, and in no acute distress. HEAD: Normocephalic EYES: PERRLA, conjunctivae clear ENT: Nares clear, turbinates edematous and erythematous, clear discharge. Mucous membranes moist. TM pearly vogt with dull light reflex bilaterally; no tragal tenderness. Oropharynx erythematous without lesions. Tonsils not enlarged and without exudate, no drooling, no hoarseness, no trismus, uvula midline.post nasal drainage. NECK: Supple. No lymphadenopathy CHEST: Clear to auscultation, breath sounds equal. No wheezing, rhonchi, rales, or stridor. No respiratory distress, speaks in full sentences. dry cough, SAO2 99% on room air HEART: Regular rate and rhythm. No murmur heard. SKIN: Warm, dry, no rash. NEURO: Alert and oriented x3. PSYCH: Normal mood and affect Course Course Emergency Course: Patient is aware of diagnosis, understands and agrees to treatment plan.? Anticipatory guidance given.? Patient agrees to follow-up as directed and is aware of reasons to seek care at the emergency department. Portions of this record may have been created with voice recognition software Level of Care: Express Care Visit Vital Signs Vital signs: Vital Signs Temperature 36.7 C 08/27/24 14:03 Pulse Rate 84 08/27/24 14:03 Respiratory Rate 20 08/27/24 14:03 Blood Pressure 130/68 08/27/24 14:03 Pulse Oximetry 99 08/27/24 14:03 Oxygen Delivery Room Air 08/27/24 14:03 Temperature 36.7 C 08/27/24 14:03 Pulse Rate 84 08/27/24 14:03 Respiratory Rate 20 08/27/24 14:03 Blood Pressure 130/68 08/27/24 14:03 Pulse Oximetry 99 08/27/24 14:03 Oxygen Delivery Room Air 08/27/24 14:03 Reviewed MDM - URI/Sore Throat MDM Narrative Medical decision making narrative: Differential diagnosis considered: Gomes virus, strep pharyngitis, allergic rhinitis, upper respiratory tract infection, sinusitis, rhinosinusitis, nasopharyngitis. viral pharyngitis, otitis media, otitis externa, pneumonia, bronchitis, viral cough syndrome, viral syndrome, and influenza.? Exam findings show no acute concerns or changes; patient is non-toxic appearing and is in no distress.? Patient is appropriate for outpatient treatment and follow-up. Differential Diagnosis Differential diagnosis: Likely upper respiratory infection, sinusitis, viral infection, bronchitis, influenza and other ( COVID, cough) Lab Data Attestation: I reviewed the patient's lab results. Lab results narrative: Influenza A negative, Influenza B negative, COVID antigen negative, strep screen negative, culture sent Labs: Lab Results 08/27/24 08/27/24 Range/Units 14:26 14:40 POC Influenza A Ag Negative (Negative) POC Influenza B Ag Negative (Negative) POC SARS CoV-2 Ag Negative (Negative) POC Grp A Strep Screen Negative (Negative) reviewed Critical Care Time Critical Care Time Critical Care Time: No Discharge Plan Discharge Clinical Impression: Upper respiratory infection Qualifiers: URI type: unspecified URI Qualified Code(s): J06.9 - Acute upper respiratory infection, unspecified Patient Disposition: Home, Self-Care Condition: Stable Instructions: Antibiotic Form, Upper Respiratory Infection (ED) Additional Instructions: Increase fluids especially juices and water Qzra-yhl-stkuiha cough and cold medicine of your choice for your symptoms Mucinex DM for cough and congestion Zyrtec Claritin or Angela daily recommend retesting tomorrow for flu and COVID test ordered Continue your inhaler/nebulizer as directed heat to the face 20-30 minutes 4-6 times a day for pain Salt water gargles, throat lozenges or throat sprays as desired If your symptoms persist, change or worsen significantly before you can contact your personal physician then please, without delay, go to the emergency department for further evaluation. Follow-up with PCP in 7-10 days or sooner if needed Follow up with PCP soon in regards to your blood pressure which is elevated above threshold for referral. Blood pressure above 120/80 may indicate pre- hypertension. strep screen negative culture sent if positive your will be notified and an appropriate antibiotic will be ordered Patient Language: Georgian Prescriptions: New dextromethorphan-guaifenesin [Mucinex DM] 60-1,200 mg tablet extended release 12 hr 1 tablet PO Q12H Qty: 20 0RF (DME) CorDx Tyfast [id number] Test Kit See Rx Instructions .Route Qty: 1 0RF Rx Instructions: As directed fexofenadine [Angela Allergy] 60 mg tablet 60 mg PO DAILY Qty: 14 0RF No Action tamsulosin [Flomax] 0.4 mg capsule 0.4 mg PO DAILY pseudoephedrine HCl [12 Hour Decongestant] 120 mg tablet extended release 120 mg PO Q12H PRN (Reason: nasal congestion) Qty: 20 0RF dextromethorphan-guaifenesin [Mucinex DM] 60-1,200 mg tablet extended release 12 hr 1 tablet PO Q12H Qty: 12 0RF albuterol sulfate 90 mcg/actuation HFA aerosol inhaler 2 puff INHALATION QID PRN (Reason: shortness of breath or wheezing) Qty: 8.5 0RF ergocalciferol (vitamin D2) 1,250 mcg (50,000 unit) capsule Follow-up/Referrals: PHYSICIAN NOT ON STAFF,NONSTAFF [Primary Care Provider] - Stand Alone Forms: Work/School Release IP Time of Disposition: 14:50 Quality [place] Coma Scale Eyes: Open Verbal: Oriented and Alert Motor: Follows Commands Angy Coma Total Score: 15
[2024-08-27 14:27] LABS: EDSTREPNEGPOS1 Negative (Negative)
[2024-08-27 14:41] LABS: EDCOVIDSCREEN Negative (Negative)
[2024-08-27 14:42] LABS: EDINFLUASCREEN Negative (Negative); EDINFLUBSCREEN Negative (Negative)
--- OUTSIDE RECORDS SUMMARY | 2024-08-27 15:38 | XMS_ITS | Encounter Summary ---
Author Organization [facility] Address [address] [facility] [place] [address] Phone Care Team Providers Care Mainframe Analyst Name Role Phone Michele Solis APRN, SHARLENE Unavailable Michele Solis APRN, SHARLENE Primary Care Pr ovider Frank Gamboa MD Unavailable Lori Osborn MD Unavailable [phone] Joel Valencia APRN, AIRBRUSH PAINTER Unavailable + [phone] Reason for Visit * Reason Onset Date Comments Form Completion 08/08/2024 Advice Only 08/08/2024 Encounter Details Date Type Department Care Team (Late st Contact Info) Description 08/08/2024 Telephone [facility] [address] [place] [address] Michele Solis APRN, AIRBRUSH PAINTER [address] [address] Form Completion; Advice Only Social History Tobacco Use Types Packs/Day Years Used Date Smoking Tobacco: Never Smokeless Tobacco: Never Alcohol Use Standard Drinks/Week Comments No 0 (1 standard drink = 0.6 oz pur e alcohol) [facility] Utilities Answer Date Recorded In the past 12 months has th e electric, gas, oil, or water [employer] threatened to shut off services in your home? No 07/26/2024 Social Connection and Isolation Panel [NHANES] A nswer Date Recorded In a typical week, how many times do you talk on the phone with family, friends, or neighbors? Never 07/26/19 25 How often do you get togethe r with friends or relatives? Never 07/26/2024 How often do you attend chur ch or catholic services? Never 07/26/2024 Do you belong to any clubs o r organizations such as quaker groups, unions, fraternal or athletic groups, or [...] Total Score - Questions 1-9 0 06/19 [facility] - Occupational Stress [...] any time in the past 12 m onths, were you homeless or living in a fci (including now)? No 07/26/2024 Education Answer Date [...] on file Sexual Orientation Not on file documented as of this encounter Miscellaneous Notes * Telephone Encounter - Rakel Jarrell - 08/08/2024 2:03 PM CST Pt called to inform office that his employer ([employer]) is requesting more information about patients recent visits and reasons for missing work. Patient would like to talk to someone about this as well as be informed if and when [employer] does call requesting more details. Please call Arjun [phone] Michele Solis APRN, AIRBRUSH PAINTER ET PUNCH PRESS OPERATOR documented in this encounter Plan of Treatment Upcoming Encounters Date Type Department Care Team (Late st Contact Info) Description 09/30/2024 8:15 AM CDT Office Visit [facility] - Family Medicine - [place] [address] [place] [address] Michele Solis APRN, SHARLENE [address] [address] 11/25/2024 10:15 AM CDT Office Visit [facility] [address] [place] [address] Joel Valencia APRN, SHARLENE [address] [place] [address] documented as of this encounter Visit Diagnoses Not on filedocumented in this encounter Additional Health Concerns Assessment Noted Time PHQ-9 Depression Total Score: 0 07/01/19 25 9:16 AM TURRET PUNCH PRESS OPERATOR documented as of this encounter Care Teams Mainframe Analyst Relationship Specialty Start Date End Date Michele Solis APRN, SHARLENE [address] [address] PCP - General Advanced Practice Nurse 08/31/22 Michele Solis APRN, CNP #[address] [address] Nurse Practitioner Advanced Practice Nurse 01/06/20 Frank Gamboa MD #[address] [address] Consulting Physician Urology 09/29/22 Lori Osborn MD #[address] [address] Consulting Physician Urology 04/21/23 Joel Valencia APRN, AIRBRUSH PAINTER [address] [place] [address] Nurse Practitioner Advanced Practice Nurse 11/21/23 documented as of this encounter
--- OUTSIDE RECORDS SUMMARY | 2024-08-27 15:38 | XMS_ITS | Encounter Summary ---
Author Organization [facility] Address [address] [place] [address] Phone Care Team Providers Care Hand Icer Name Role Phone Michele Solis APRN, SHARLENE Unavailable Michele Solis APRN, SHARLENE Primary Care Pr ovider Frank Gamboa MD Unavailable Lori Osborn MD Unavailable [phone] Joel Valencia APRN, PRODUCTION ENGINEER TRACK Unavailable [phone] Encounter Details Date Type Department Care Team (Late st Contact Info) Description 10/21/2022 Telephone [facility] [address] [place] [address] Michele Solis APRN, PRODUCTION ENGINEER TRACK #[address] [address] Social History Tobacco Use Types Packs/Day Years [...] Visit [facility] - Family Medicine - [place] [address] [place] [phone] Michele Solis APRN, PRODUCTION ENGINEER TRACK #[address] [address] 11/25/2024 10:15 AM CDT Office Visit [facility] [address] [place] [phone] Joel Valencia APRN, PRODUCTION ENGINEER TRACK [address] [place] [address] documented as of this encounter Visit Diagnoses Not on filedocumented in this encounter Additional Health Concerns Assessment Noted Time PHQ-9 Depression Total Score: 0 04/02/20 21 9:00 AM CDT documented as of this encounter Care Teams Hand Icer Relationship Specialty Start Date End Date Michele Solis APRN, PRODUCTION ENGINEER TRACK #[address] [address] PCP - General Advanced Practice Nurse 08/31/22 Michele Solis, BODY JOINER, PRODUCTION ENGINEER TRACK #[address] [address] Nurse Practitioner Advanced Practice Nurse 01/06/20 Frank Gamboa MD #[address] [address] Consulting Physician Urology 09/29/22 Lori Osborn MD #[address] [address] Consulting Physician Urology 04/21/23 Joel Valencia APRN, PRODUCTION ENGINEER TRACK [address] [place] [address] Nurse Practitioner Advanced Practice Nurse 11/21/23 documented as of this encounter
--- OUTSIDE RECORDS SUMMARY | 2024-08-27 15:38 | XMS_ITS | Encounter Summary ---
Author Organization [facility] Address [address] [facility] [place] [address] Phone Care Team Providers Care Grades 1 Thru 5 Teacher Name Role Phone Michele Solis APRN, SHARLENE Unavailable Michele Solis APRN, SHARLENE Primary Care Pr ovider Frank Gamboa MD Unavailable Lori Osborn MD Unavailable [phone] Joel Valencia APRN, GOODWILL REPRESENTATIVE Unavailable [phone] Encounter Details Date Type Department Care Team (Late st Contact Info) Description 08/15/2024 Results Follow-Up [facility] - Family Medicine [facility] [address] [place] [id number] Michele Solis APRN, GOODWILL REPRESENTATIVE #[address] [address] Social History Tobacco Use Types Packs/Day Years Used Date Smoking Tobacco: Never Smokeless Tobacco: Never Alcohol Use Standard Drinks/Week Comments No 0 (1 standard drink = 0.6 oz pur e alcohol) [facility] Utilities Answer Date Recorded In the past 12 months has [employer], gas, oil, or water [employer] threatened to shut off services in your home? No 07/26/2024 Social Connection and Isolation Panel [NHANES] A nswer Date Recorded In a typical week, how many times do you talk on the phone with family, friends, or neighbors? Never 07/26/19 How often do you get togethe r with friends or relatives? Never 07/26/2024 How often do you attend chur ch or mormonism services? Never 07/26/2024 Do you belong to any clubs o r organizations such as samaritan groups, unions, fraternal or athletic groups, or [...] Total Score - Questions 1-9 0 06/19 [facility] - Occupational Stress [...] on file documented as of this encounter Progress Notes * Irina Ardon CMA - 08/15/2024 12:40 PM CST Britt ASHER made note and patient picked up from front end technician [employer] REP documented in this encounter Plan of Treatment Upcoming Encounters Date Type Department Care Team (Late st Contact Info) Description 09/30/2024 8:15 AM CDT Office Visit [facility] - Family Medicine - [place] [address] [place] [address] Michele Solis, JUNIOR MANUFACTURING ENGINEER, GOODWILL REPRESENTATIVE [address] [address] 11/25/2024 10:15 AM CDT Office Visit [facility] [address] [place] [address] Joel Valencia APRN, GOODWILL REPRESENTATIVE [address] [place] [address] documented as of this encounter Visit Diagnoses Not on filedocumented in this encounter Additional Health Concerns Assessment Noted Time PHQ-9 Depression Total Score: 0 07/01/19 25 9:16 AM [employer] REP documented as of this encounter Care Teams Grades 1 Thru 5 Teacher Relationship Specialty Start Date End Date Michele Solis APRN, SHARLENE [address] [address] PCP - General Advanced Practice Nurse 08/31/22 Michele Solis APRN, SHARLENE [address] [address] Nurse Practitioner Advanced Practice Nurse 01/06/20 Frank Gamboa MD [address] [address] Consulting Physician Urology 09/29/22 Lori Osborn MD #[address] [address] Consulting Physician Urology 04/21/23 Joel Valencia APRN, GOODWILL REPRESENTATIVE [address] [place] [address] Nurse Practitioner Advanced Practice Nurse 11/21/23 documented as of this encounter
--- OUTSIDE RECORDS SUMMARY | 2024-08-27 15:38 | XMS_ITS | Clinical Summary ---
Author Organization [facility] Address [address] [place] [address] Phone Care Team Providers Care Security Control Center Operator Name Role Phone Michele Solis APRN, SHARLENE Unavailable Michele Solis APRN, SHARLENE Primary Care Pr ovider Frank Gamboa MD Unavailable Lori Osborn MD Unavailable [phone] Joel Valencia APRN, SHARLENE Unavailable [phone] Allergies No known active allergies Medications ergocalciferol (VITAMIN D) 94836 UNIT CapsuleIndicati ons:Vitamin D deficiency Take 1 Capsule by mouth once a week for 12 doses. 12 Capsule 5 10/01/19 25 Active oxyCODONE-aceta minophen (Percocet) 5-325 MG TabletIndicatio ns:Renal colic on right side Take 1 Tablet by mouth every 4 hours as needed for Severe pain. 12 Tablet 5 08/07/19 25 Discontinue d(Alternate therapy) Suvorexant (Belsomra) 10 MG TabletIndicatio ns:Shift work sleep disorder Take 1 Tablet by mouth nightly as needed (insomnia). 14 Tablet 5 08/24/19 25 Discontinue d(Med List Clean Up) ondansetron (ZOFRAN-ODT) 4 MG TABLET DISPERSIBLE Take 1 Tablet by mouth every 8 hours as needed for Nausea - 1st line. 15 Tablet 5 08/24/19 25 Discontinue d(Med List Clean Up) HYDROcodone-lucas taminophen (NORCO) 5-325 MG TabletIndicatio ns:Renal colic Take 1 Tablet by mouth every 4 hours as needed for Moderate or more severe pain. 18 Tablet 5 08/12/19 25 Discontinue d(Reorder) tamsulosin (FLOMAX) 0.4 MG Capsule Take 0.4 mg by mouth daily. 08/22/19 25 Discontinue d(Med List Clean Up) predniSONE (DELTASONE) 10 MG TabletIndicatio ns:Rash Take 2 Tablets by mouth 2 times daily for 7 days. 28 Tablet 5 08/20/19 25 HYDROcodone-lucas taminophen (NORCO) 5-325 MG TabletIndicatio ns:Renal colic Take 1 Tablet by mouth every 4 hours as needed for Moderate or more severe pain. 18 Tablet 5 08/22/19 25 Discontinue d(Med List Clean Up) Active Problems Problem Noted Date Diagnosed Date Hyperlipidemia 07/14/2024 Vitamin D deficiency 07/14/2024 Herpes zoster without complication 07/01/2024 Obesity (BMI 30-39.9) 07/01/2024 Fatigue 07/01/2024 Renal stone 03/31/2020 Encounters Date Type Department Care Team Description 08/23/2024 8:15 AM LIGHTER Office Visit [facility] [address] [place] [phone] Michele Solis APRN, CNP Rash and other nonspecific skin eruption (Primary Dx); Stress and adjustment reaction Discharge Disposition: Discharged to home or Selfcare 08/23/2024 Travel 08/21/2024 Telephone [facility] [address] [place] [phone] Michele Solis APRN, SHARLENE Follow-up 08/15/2024 Results Follow-Up [facility] [address] [place] [phone] Michele Solis APRN, CNP 08/14/2024 5:53 PM LIGHTER - 08/14/2024 11:59 PM LIGHTER [facility] [address] [place] [phone] Michele Solis APRN, SHARLENE Discharge Disposition: Discharged to home or Selfcare 08/14/2024 3:00 PM LIGHTER E-Visit [facility] [address] [place] [address] Michele Solis APRN, SHARLENE E-Visit for Rash/Burn Discharge Disposition: Discharged to home or Selfcare 08/14/2024 Telephone [facility] [address] [place] [phone] Michele Solis APRN, SHARLENE Letter for School/Work 08/14/2024 Travel 08/13/2024 Nurse Triage [facility] [address] [place] [phone] Michele Solis APRN, SHARLENE Advice Only; Rash 08/12/2024 9:30 AM LIGHTER Office Visit [facility] [address] [place] [phone] Michele Solis APRN, SHARLENE Rash (Primary Dx); Renal colic Discharge Disposition: Discharged to home or Selfcare 08/12/2024 Travel 08/09/[address] [facility] [address] [place] [phone] Michele Solis APRN, CNP 08/08/[address] [facility] [address] [place] [phone] Lori Osborn MD 08/08/2024 Telephone [facility] [address] [place] [phone] Michele Solis APRN, SHARLENE Form Completion; Advice Only 08/07/2024 Telephone [facility] [address] [place] [address] Michele Solis APRN, SHARLENE Letter for School/Work 07/26/2024 4:15 PM LIGHTER Office Visit [facility] [address] [place] [address] Michele Solis APRN, CNP Renal colic on right side (Primary Dx); Shift work sleep disorder Discharge Disposition: Discharged to home or Selfcare 07/26/2024 8:29 AM LIGHTER - 07/26/2024 11:34 AM LIGHTER Emergency [facility] [address] [place] [address] Issac Valles MD Renal colic on right side Discharge Disposition: Discharged to home or Selfcare 07/26/2024 Travel 07/14/2024 Results Follow-Up [facility] [address] [place] [address] Donell Rosenbaum MD Hyperlipidemia, unspecified hyperlipidemia type (Primary Dx); Vitamin D deficiency 07/01/2024 9:50 AM LIGHTER Lab [facility] [address] [address] [facility] Lab/Ancillary Vitamin D deficiency; Fatigue, unspecified type; Obesity (BMI 30-39.9) Discharge Disposition: Discharged to home or Selfcare 07/01/2024 9:15 AM LIGHTER Office Visit [facility] [address] [place] [address] Donell Rosenbaum MD Herpes zoster without complication (Primary Dx); Obesity (BMI 30-39.9); Fatigue, unspecified type; Vitamin D deficiency Discharge Disposition: Discharged to home or Selfcare 07/01/2024 Telephone [facility] [address] [place] [address] Michele Solis APRN, SHEET METAL WORKER HELPER Form Completion 07/01/2024 Travel from Last 3 [...] drink = 0.6 oz pur e alcohol) [facility] Utilities Answer Date Recorded In the [...] often do you attend chur ch or voodoo services? Never 07/26/2024 Do you belong to any clubs o r organizations such as mandaeism groups, unions, fraternal or athletic groups, or [...] Total Score - Questions 1-9 0 06/19 [facility] - Occupational Stress Questionnaire Answer Date Recorded [...] any time in the past 12 m [facility], were you homeless or living in a retirement (including now)? No 07/26/2024 Education Answer Date [...] Sign Reading Time Taken Comments Blood Pressure 108/80 08/23/2024 8:01 AM LIGHTER Pulse 78 08/23/2024 8:01 AM LIGHTER Temperature 36.4 C (97.5 F) 08/23/2024 8:01 AM LIGHTER Respiratory Rate 16 08/23/2024 8:01 AM LIGHTER Oxygen Saturation 98% 08/23/2024 8:01 AM LIGHTER Inhaled Oxygen Concentration - - Weight 82.6 kg (182 lb) 08/23/2024 8:01 AM LIGHTER Height 165.1 cm (5' 5 ) 08/23/2024 8:01 AM LIGHTER Body Mass Index 30.29 08/23/2024 8:01 AM LIGHTER Plan of Treatment Upcoming Encounters Date Type Department Care Team (Late st Contact Info) Description 09/30/2024 8:15 AM CDT Office Visit [facility] [address] [place] [address] Michele Solis, FASHION INTERN, SHEET METAL WORKER HELPER [address] [address] 11/25/2024 10:15 AM CDT Office Visit [facility] [address] [place] [address] Joel Valencia FASHION INTERN, SHEET METAL WORKER HELPER [address] [place] [address] Health Maintenance Due Date Last Done Comments TdaP Immunization 1990 Hepatitis B Immunization (1 of 3 - 19+ 3-dose series) 2009 Influenza Immunization (#1) 2024 SARS-COV-2 Immunization (2023- season) 2024 Respiratory Syncytial Virus (RSV) Immunization [...] this topic Medical Devices Implanted Type Area Technical Support Internship Device Identifier Shelf Expiration Date Model / Serial / Lot Stent Ureteral 6fr 2.1fr 26cm 2 Pigtail Curve 2 Durometer Taper Tip Loprfl Graduated Polaris Ultra - [id number] Implanted:Qty : 1 on 03/31/2020 by Robert Clemons MD at [facility] IMPLANT Left: Ureter Ombu 09/15/2022 [id number] / [id number] / [id number] Procedures Procedure Name Priority Date/Time Associated Diagnosis Comments CT RENAL STONE STUDY (ABDOMEN AND PELVIS W/O CONTRAST) AMADEO 08/14/2024 6:01 PM LIGHTER Renal colic XR ABDOMEN KUB FLAT PLATE STAT 07/26/2024 10:29 AM LIGHTER URINALYSIS REFLEX IF INDICATED BY ABNORMAL RESULTS STAT 07/26/2024 8:21 AM LIGHTER LIPID PANEL Today 07/01/2024 9:59 AM LIGHTER Obesity (BMI 30-39.9) THYROID STIMULATING HORMONE (TSH) Today 07/01/2024 9:59 AM LIGHTER Obesity (BMI 30-39.9) Fatigue, unspecified type VITAMIN B12 Today 07/01/2024 9:59 AM LIGHTER Fatigue, unspecified type VITAMIN D, 25 HYDROXY TOTAL Today 07/01/2024 9:59 AM LIGHTER Vitamin D deficiency HEPATITIS PANEL ACUTE (AHP) STAT 09/23/2021 3:00 PM CDT from Last 3 Months or Most Recently Relevant to Health Maintenance Results * CT RENAL STONE STUDY (ABDOMEN AND PELVIS W/O CONTRAST) (08/14/2024 6:01 PM LIGHTER) Anatomical Region Laterality Modality Abdomen N/A Computed Tomogra phy 08/14/2024 7:26 PM LIGHTER Impressions 08/14/2024 7:28 PM LIGHTER IMPRESSION: No acute findings in the abdomen and pelvis. Punctate nonobstructive right renal calculus. Narrative 08/14/2024 7:28 PM LIGHTER EXAM DESCRIPTION: CT RENAL STONE STUDY (ABDOMEN AND PELVIS W/O CONTRAST) REASON FOR STUDY: c/o RT flank pain x 2.5 wks TECHNIQUE: CT scan of the abdomen and pelvis performed without intravenous and without oral contrast using helical scanning technique. Reconstructed coronal and sagittal MPR images reviewed. All images stored on PACS. Automated exposure control was used as a dose optimization technique for this examination. COMPARISON: CT abdomen pelvis 11/25/2023 FINDINGS: The sensitivity for detection of visceral lesions is diminished without the use of intravenous contrast. LOWER CHEST: No significant pulmonary abnormalities. No effusion. LIVER: Normal size. No identified cystic or solid masses. GALLBLADDER: No stones, wall thickening or pericholecystic fluid BILE DUCTS: No intrahepatic or extrahepatic ductal dilatation. SPLEEN: Normal size. No focal lesions. PANCREAS: No identified cystic or solid masses. No significant calcifications. No adjacent inflammation or peripancreatic fluid collections. Pancreatic duct not dilated. ADRENALS: Normal. KIDNEYS/URINARY TRACT: No identified significant cystic or solid masses. Punctate calculus in the right kidney. No hydronephrosis or hydroureter. Urinary bladder is unremarkable. GI: No dilated bowel loops. No obvious wall thickening. Normal appendix. No significant diverticular disease. PERITONEUM: No ascites or free air. RETROPERITONEUM: No mass or adenopathy. REPRODUCTIVE: No significant abnormality. VASCULATURE: No abdominal aortic aneurysm. MUSCULOSKELETAL: No significant abnormality. OTHER: No other abnormality. THIS IS AN ELECTRONICALLY VERIFIED FINAL REPORT 08/14/2024 7:26 PM - Electronically signed by Lorraine Cagle M.D. FT: FT Report ID: [id number] Reading Location: [id number] Procedure Note Lorraine Colin MD - 08/14/2024 EXAM DESCRIPTION: CT RENAL STONE STUDY (ABDOMEN AND PELVIS W/O CONTRAST) REASON FOR STUDY: c/o RT flank pain x 2.5 wks TECHNIQUE: CT scan of the abdomen and pelvis performed without intravenous and without oral contrast using helical scanning technique. Reconstructed coronal and sagittal MPR images reviewed. All images stored on PACS. Automated exposure control was used as a dose optimization technique for this examination. COMPARISON: CT abdomen pelvis 11/25/2023 FINDINGS: The sensitivity for detection of visceral lesions is diminished without the use of intravenous contrast. LOWER CHEST: No significant pulmonary abnormalities. No effusion. LIVER: Normal size. No identified cystic or solid masses. GALLBLADDER: No stones, wall thickening or pericholecystic fluid BILE DUCTS: No intrahepatic or extrahepatic ductal dilatation. SPLEEN: Normal size. No focal lesions. PANCREAS: No identified cystic or solid masses. No significant calcifications. No adjacent inflammation or peripancreatic fluid collections. Pancreatic duct not dilated. ADRENALS: Normal. KIDNEYS/URINARY TRACT: No identified significant cystic or solid masses. Punctate calculus in the right kidney. No hydronephrosis or hydroureter. Urinary bladder is unremarkable. GI: No dilated bowel loops. No obvious wall thickening. Normal appendix. No significant diverticular disease. PERITONEUM: No ascites or free air. RETROPERITONEUM: No mass or adenopathy. REPRODUCTIVE: No significant abnormality. VASCULATURE: No abdominal aortic aneurysm. MUSCULOSKELETAL: No significant abnormality. OTHER: No other abnormality. THIS IS AN ELECTRONICALLY VERIFIED FINAL REPORT 08/14/2024 7:26 PM - Electronically signed by Lorraine Cagle M.D. FT: FT Report ID: [id number] Reading Location: [place] [address] IMPRESSION: No acute findings in the abdomen and pelvis. Punctate nonobstructive right renal calculus. us Michele [place] Solis FASHION INTERN, SHEET METAL WORKER HELPER IMG CT ORDERABLE S Final Result * XR ABDOMEN KUB FLAT PLATE (07/26/2024 10:29 AM LIGHTER) Anatomical Region Laterality Modality Abdomen N/A Digital Radiogra phy 07/26/2024 10:5 1 AM LIGHTER Impressions 07/26/2024 10:53 AM LIGHTER IMPRESSION: No evidence of an acute abnormality. Moderate fecal material in the colon. No definite renal or ureteral calculi. Narrative 07/26/2024 10:53 AM LIGHTER EXAM DESCRIPTION: XR ABDOMEN KUB FLAT PLATE [...] Electronically signed by Izaiah Henderson M.D. CH: Report ID: [id number] Reading Location: [id number] Procedure Note Izaiah Henderson Jr., MD - [...] Electronically signed by Izaiah Henderson M.D. CH: Report ID: [id number] Reading Location: [id number] IMPRESSION: No evidence of an acute abnormality. Moderate fecal material in the colon. No definite renal or ureteral calculi. Issac Valles MD [facility] ORDERABLES Final Result * (ABNORMAL) URINALYSIS REFLEX IF INDICATED BY ABNORMAL RESULTS (07/26/2024 8:21 AM LIGHTER) SPECIFIC GRAVITY 1.025 1.003 - 1.030 07/26/2024 9:24 AM LIGHTER [email or web address] URINE PH 6.0 5.0 - 9.0 07/26/2024 9:24 AM LIGHTER [facility] [[email or web address] WBC ESTERASE Negative Negative 07/26/2024 9:24 AM LIGHTER [facility] NITRITE Negative Negative 07/26/2024 9:24 AM LIGHTER [facility] PROTEIN, RANDOM URINE 30 mg/dL(A) Negative 07/26/2024 9:24 AM LIGHTER [facility] URINE GLUCOSE, QUAL Negative Negative 07/26/2024 9:24 AM LIGHTER [facility] URINE KETONES Negative Negative 07/26/2024 9:24 AM LIGHTER [facility] UROBILINOGEN Normal Normal mg/dL 07/26/2024 9:24 AM LIGHTER [facility] URINE BLOOD Negative Negative trish/ul 07/26/2024 9:24 AM LIGHTER [facility] URINALYSIS COLOR Yellow 07/26/2024 9:24 AM LIGHTER [facility] URINALYSIS CLARITY Slightly Cloudy 07/26/2024 9:24 AM LIGHTER [facility] WBC (Urine) 6-10(A) Negative, 0-5 /hpf 07/26/2024 9:24 AM LIGHTER [facility] URINE RBC'S 0-2 Negative, 0-2 /hpf 07/26/2024 9:24 AM LIGHTER [facility] EPITHELIAL CELLS Occasional /lpf 07/26/2024 9:24 AM LIGHTER [facility] BACTERIA, URINE Few(A) Negative /hpf 07/26/2024 9:24 AM LIGHTER [facility] URINE MUCOUS Many 07/26/2024 9:24 AM LIGHTER [facility] Urine URINE SPECIMEN COLLECTION, CLEAN CATCH / Unknown Non-Phlebotomy Collection / Unknown 07/26/2024 8:21 AM LIGHTER 07/26/2024 8:42 AM LIGHTER us Issac Valles MD URINE ORDERABLES Final Res ult [facility] [address] [place] [address] * VITAMIN D, 25 HYDROXY TOTAL (07/01/2024 9:59 AM LIGHTER) VITAMIN D, 25 HYDROX 9.6 ng/mL 07/01/2024 1:20 PM LIGHTER [facility] Blood Venipuncture / Unknown 07/01/2024 9:59 AM LIGHTER 07/01/2024 9:59 AM LIGHTER Narrative [facility] - 07/01/2024 1:20 PM LIGHTER Published reference ranges for Vitamin D vary depending on time and place and method of testing, and on patient's age, sex, ethnicity and levels of other measured analytes such as parathormone, calcium and phosphorus. The result should be evaluated in conjunction with clinical findings and suspicions. [employer] and Endocrine Clinical Practice Guidelines: Status Vitamin D levels (ng/mL) Deficient <=20 At risk of inadequacy 21-29 Sufficient 30-100 Centers of Disease Control and Prevention Guidelines: Status Vitamin D levels (ng/mL) Deficient <13 At risk of inadequacy 13-19 Sufficient 20-50 Possibly harmful >50 References: [employer], 2010 Dietary reference intakes for calcium and vitamin D. [place]: The National Academies Press. Stephany M, Anum N, Zoe BERRY, et al., Evaluation, treatment, and prevention of Vitamin D deficiency: an Endocrinology Clinical Practice Guideline. JCEM 2011 96: 7 5090-1978. Jak A, Rj C, Leonor D, et al., Vitamin D Status: [place], 3076-4253, [facility] data brief, no. 59, MD [place]: National Center for Health Statistics. 2011. Donell Rosenbaum MD CHEMISTRY ORDERABLES Final Result [facility] [address] [place] [address] * VITAMIN B12 (07/01/2024 9:59 AM LIGHTER) VITAMIN B12 646 213 - 816 pg/mL 07/01/2024 1:20 PM LIGHTER [facility] Blood Venipuncture / Unknown 07/01/2024 9:59 AM LIGHTER 07/01/2024 9:59 AM LIGHTER Donell Rosenbaum MD CHEMISTRY ORDERABLES Final Result Performing Organization Address City/[facility]/ZIP Co de Phone Number [facility] [address] [place] [address] * THYROID STIMULATING HORMONE (TSH) (07/01/2024 9:59 AM LIGHTER) Pathologist [facility] TSH 2.103 0.300 - 5.000 mIU/L 07/01/2024 1:11 PM LIGHTER [facility] Blood Venipuncture / Unknown 07/01/2024 9:59 AM LIGHTER 07/01/2024 9:59 AM LIGHTER Donell Rosenbaum MD CHEMISTRY ORDERABLES Final Result Performing Organization Address City/[facility] Co de Phone Number [facility] [address] [place] [address] * (ABNORMAL) LIPID PANEL (07/01/2024 9:59 AM LIGHTER) CHOLESTEROL 159 <200 mg/dL 07/01/2024 12:54 PM LIGHTER [facility] TRIGLYCERIDES 187(H) <150 mg/dL 07/01/2024 12:54 PM LIGHTER [facility] HDL CHOLESTEROL 42 >40 mg/dL 12:54 PM LIGHTER [facility] LDL 80 <130 mg/dL 07/01/2024 12:54 PM LIGHTER [facility] VLDL 37 10 - 50 mg/dL 07/01/2024 12:54 PM LIGHTER [facility] CHOL/HDL RATIO 3.8 0.0 - 4.4 07/01/2024 12:54 PM LIGHTER [facility] NON-HDL CHOLESTEROL 117 <130 mg/dL 07/01/2024 12:54 PM LIGHTER [facility] IS THE PATIENT REQUIRED TO BE FASTING? Yes 07/01/2024 12:54 PM LIGHTER [facility] HAS THE PATIENT BEEN FASTING? Yes 07/01/2024 12:54 PM LIGHTER [facility] Blood Venipuncture / Unknown 07/01/2024 9:59 AM LIGHTER 07/01/2024 9:59 AM LIGHTER Donell Rosenbaum MD CHEMISTRY ORDERABLES Final Result [facility] [address] [place] [address] * Hepatitis Panel Acute (AHP) (09/23/2021 3:00 PM CDT) HEPATITIS A IGM ANTIBODY NON DETECTED NON DETECTED [address] B 09/24/2021 4:[address] [facility] Comment: IGM Antibodies to HAV not detected. Does not exclude early acute or recovered HAV infection. HEP B CORE AB (IGM) NON DETECTED NON DETECTED [address] B 09/24/2021 4:[address] [facility] Comment:IGM anti-HBC not det ected. Does not exclude the possibility of exposure to or infection with HBV. HEPATITIS B SURFACE ANTIGEN NON DETECTED NON DETECTED [address] 09/24/2021 4:[address] [facility] Comment:A nonreactive test r esult does not exclude the possibility of exposure to or infection with Hepatitis B virus. A nonreactive test result in individuals with prior exposure to hepatitis B may be due to antigen levels below the detection limit of this assay or lack of antigen reactivity to the antibodies in this assay. hepatitis C antibody 0.12 <1 S/CO [place] [id number] B 09/24/2021 4:[address] [facility] Comment: Signal/Cutoff ratio < 0.79 is Nondetected Signal/Cutoff ratio 0.80-0.99 is Grayzone Signal/Cutoff ratio > 0.99 is Detected Supplemental assays are recommended if signal/cutoff ratio is >/=1.00. Signal/cutoff ratio result >/= 5.00 is 97% predictive of positivity for recombinant immunoblot assay (RIBA) and will be reported to the [place] Department of Public Health as required. Blood Venipuncture / Unknown 09/23/2021 3:00 PM CDT 09/23/2021 4:34 PM CDT us Janna Earl APRN, CNP HEMATOLOGY ORDERABLES Final Result [facility] [address] [place] [address], [place] from Last 3 Months or Most Recently Relevant to Health Maintenance Insurance [facility] Care Teams Security Control Center Operator Relationship Specialty Start Date End Date Michele Solis APRN, CNP [address] [address] PCP - General Advanced Practice Nurse 08/31/22 Michele Solis APRN, CNP #[address] [address] Nurse Practitioner Advanced Practice Nurse 01/06/20 Frank Gamboa MD [address] [address] Consulting Physician Urology 09/29/22 Lori Osborn MD [address] [address] Consulting Physician Urology 04/21/23 Joel Valencia APRN, SHEET METAL WORKER HELPER [address] [place] [address] Nurse Practitioner Advanced Practice Nurse 11/21/23
--- OUTSIDE RECORDS SUMMARY | 2024-08-27 15:38 | XMS_ITS | Encounter Summary ---
Author Organization [facility] Address [address] [facility] [place] [address] Phone Care Team Providers Care Senior Clinician Name Role Phone Michele Solis APRN, SHARLENE Unavailable Michele Solis APRN, SHARLENE Primary Care Pr ovider Frank Gamboa MD Unavailable Lori Osborn MD Unavailable [phone] Joel Valencia APRN, TRADESHOW WORKER Unavailable [phone] Reason for Visit * Reason Onset Date Comments Follow-up 08/21/2024 Encounter Details Date Type Department Care Team (Late st Contact Info) Description 08/21/2024 Telephone [facility] Central Call Center [address] [place] [address] Michele Solis APRN, TRADESHOW WORKER #[address] [address] Follow-up Social History Tobacco Use Types Packs/Day Years Used Date Smoking Tobacco: Never Smokeless Tobacco: Never Alcohol Use Standard Drinks/Week Comments No 0 (1 standard drink = 0.6 oz pur e alcohol) [facility] Utilities Answer Date Recorded In the [...] often do you attend chur ch or jehovah's witness services? Never 07/26/2024 Do you belong to any clubs o r organizations such as temple groups, unions, fraternal or athletic groups, or [...] Total Score - Questions 1-9 0 06/19 [facility] - Occupational Stress Questionnaire Answer [...] any time in the past 12 m [facility], were you homeless or living in a snf (including now)? 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 Patient seen on 08/12 for renal colic rash. Prescribed prednisone. Patient received clearance fromMichele Solis APRN, TRADESHOW WORKER. Assessment: Patient stating when he returned to work on Monday, they told him he could not return due to rash still present despite improvements and clearance from PCP. Patient returned to work today and was told the same and sent home because rash still present on legs and face. Patient states the rash is improving and scabbing over. Patient has scheduled appointment All Patient Appointments Date & Time Provider Department Dept Phone 08/23/2024 8:15 AM Michele Solis [facility] [phone] Wanted to update provider of current situation. Also requesting excuse from work letter when he is at appointment on Monday for 08/19-08/23. Recommendation: This RN requesting patient to send pictures through [employer] for Michele Solis APRN, CNP To review. Routing to provider to update that patient has not been able to return to work. Discussed utilizing [employer] to: sending [employer] message with photograph during call If any follow up questions, patient requesting MyChart message. OR MAINTENANCE MACHINIST documented in this encounter Plan of Treatment Upcoming Encounters Date Type Department Care Team (Late st Contact Info) Description 09/30/2024 8:15 AM CDT Office Visit [facility] #2 [place] [address] Michele Solis APRN, CNP #[address] [address] 11/25/2024 10:15 AM CDT Office Visit [facility] #2 [place] [address] Joel Valencia APRN, CNP #2 [place] [address] documented as of this encounter Visit Diagnoses Not on filedocumented in this encounter Additional Health Concerns Assessment Noted Time PHQ-9 Depression Total Score: 0 07/01/19 25 9:16 AM SENIOR 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 documented as of this encounter Care Teams Senior Clinician Relationship Specialty Start Date End Date Michele Solis APRN, CNP #[address] [address] PCP - General Advanced Practice Nurse 08/31/22 Michele Solis APRN, TRADESHOW WORKER #2 [facility] [address] [place] [address] Nurse Practitioner Advanced Practice Nurse 01/06/20 Frank Gamboa MD #2 [facility] [address] [place] [address] Consulting Physician Urology 09/29/22 Lori Osborn MD #2 [facility] [address] [place] [address] Consulting Physician Urology 04/21/23 Joel Valencia APRN, TRADESHOW WORKER #2 [place] [address] Nurse Practitioner Advanced Practice Nurse 11/21/23 documented as of this encounter
== END 2024-08-27 14:52 | disposition home or self-care (01) ==
PROVIDERS: Emergency Provider Registered Nurse
DX: J06.9 Acute upper respiratory infection, unspecified (principal); Z20.822 Contact with and (suspected) exposure to COVID-19; F12.90 Cannabis use, unspecified, uncomplicated
CPT/HCPCS: 87081; 87426; 87804; 87880; 99213; G0463

== ENCOUNTER 2024-11-01 15:00 | Emergency (ER) | payer OTHER, SELFPAY ==
--- OUTSIDE RECORDS SUMMARY | 2024-11-02 14:05 | XMS_ITS | Encounter Summary ---
Author Organization [facility] Address [address] [facility] [address] Phone Care Team Providers Care Contact Center Engineer Name Role Phone Michele Solis APRN, SHARLENE Unavailable Michele Solis APRN, SHARLENE Primary Care Pr ovider Frank Gamboa MD Unavailable Lori Osborn MD Unavailable [phone] Joel Valencia APRN, DIAMOND EXPERT Unavailable [phone] Encounter Details Date Type Department Care Team (Late st Contact Info) Description 10/21/2022 Telephone [facility] Call [facility] [address] [place] [address] Michele Solis APRN, DIAMOND EXPERT #[address] [address] Social History Tobacco Use Types Packs/Day Years [...] Care Team (Late st Contact Info) Description 11/25/2024 10:15 AM CDT Office Visit [facility] #2 [place] [phone] Joel Valencia APRN, DIAMOND EXPERT #2 [place] [address] 12/24/2024 8:30 AM CDT Office Visit [facility] #2 [place] [address] Michele Solis APRN, SHARLENE #[address] [address] documented as of this encounter Visit Diagnoses Not on filedocumented in this encounter Additional Health Concerns Infection Onset Date Last Indicated Resolved Time Respiratory Rule-Out 09/23/2024 09/23/2024 025 8:28 AM CDT COVID - 19 09/23/2024 09/23/2024 09/23/2024 8:27 AM CDT Assessment Noted Time PHQ-9 Depression Total Score: 0 04/02/20 9:00 AM CDT documented as of this encounter Care Teams Contact Center Engineer Relationship Specialty Start Date End Date Michele Solis APRN, DIAMOND EXPERT #[address] [address] PCP - General Advanced Practice Nurse 08/31/22 Michele Solis APRN, DIAMOND EXPERT #2 [facility] [address] [place] [address] Nurse Practitioner Advanced Practice Nurse 01/06/20 Frank Gamboa MD #2 [facility] [address] [place] [address] Consulting Physician Urology 09/29/22 Lori Osborn MD #2 [facility] [address] [place] [address] Consulting Physician Urology 04/21/23 Joel Valencia APRN, DIAMOND EXPERT #2 [place] [address] Nurse Practitioner Advanced Practice Nurse 11/21/23 documented as of this encounter
--- OUTSIDE RECORDS SUMMARY | 2024-11-02 14:06 | XMS_ITS | Encounter Summary ---
Author Organization [facility] Address [address] [facility] [place] [address] Phone Care Team Providers Care Shingle Weaver Name Role Phone Michele Solis APRN, SHARLENE Unavailable Michele Solis APRN, SHARLENE Primary Care Pr ovider Frank Gamboa MD Unavailable Lori Osborn MD Unavailable [phone] Joel Valencia APRN, MANAGER MOLECULAR Unavailable [phone] Reason for Visit * Reason Onset Date Comments Follow-up 08/21/2024 Encounter Details Date Type Department Care Team (Late st Contact Info) Description 08/21/2024 Telephone [facility] HealthCare Central Call Center [address] [place] [address] Michele Solis APRN, MANAGER MOLECULAR #[address] [address] Follow-up Social History Tobacco Use Types Packs/Day Years Used Date Smoking Tobacco: Never Smokeless Tobacco: Never Alcohol Use Standard Drinks/Week Comments No 0 (1 standard drink = 0.6 oz pur e alcohol) [facility] Utilities Answer Date Recorded In the past [...] often do you attend chur ch or mormon services? Never 07/26/2024 Do you belong to any clubs o r organizations such as gnosticist groups, unions, fraternal or athletic groups, or [...] Total Score - Questions 1-9 0 06/19 [facility] - Occupational Stress Questionnaire [...] any time in the past [address] [facility], were you homeless or living in a [...] Sudha Eller RN - 08/21/2024 12:29 PM EDGING MACHINE FEEDER Situation: Calling about no clearance for work related to rash-work not allowing him to return Background: Patient contacting PCP office. Patient seen on 08/12 for renal colic rash. Prescribed prednisone. Patient received clearance fromMichele Solis APRN, MANAGER MOLECULAR. Assessment: Patient stating when he returned to [...] Dept Phone 08/23/2024 8:15 AM Michele Solis [facility] [phone] Wanted to update provider of current situation. Also requesting excuse from work letter when he is at appointment on Monday for 08/19-08/23. Recommendation: This RN requesting patient to send pictures through [employer] for Michele Solis APRN, CNP To review. Routing to provider to update that patient has not been able to return to work. Discussed utilizing [employer] to: sending [employer] message with photograph during call If any follow up questions, patient requesting [employer] message. 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 FEEDER documented in this encounter Plan of Treatment Upcoming Encounters Date Type Department Care Team (Late st Contact Info) Description 11/25/2024 10:15 AM CDT Office Visit [facility] #2 [place] [address] Joel Valencia APRN, SHARLENE #[address] [place] [address] 12/24/2024 8:30 AM CDT Office Visit [facility] #2 [place] [address] Michele Solis APRN, SHARLENE #[address] [address] documented as of this encounter Visit Diagnoses Not on filedocumented in this encounter Additional Health Concerns Infection Onset Date Last Indicated Resolved Time Respiratory Rule-Out 09/23/2024 09/23/2024 025 8:28 AM CDT COVID - 19 09/23/2024 09/23/2024 09/23/2024 8:27 AM CDT Assessment Noted Time PHQ-9 Depression Total Score: 0 07/01/19 25 9:16 AM EDGING MACHINE FEEDER documented as of this encounter Care Teams Shingle Weaver Relationship Specialty Start Date End Date Michele Solis APRN, MANAGER MOLECULAR #2 [facility] [address] [place] [address] PCP - General Advanced Practice Nurse 08/31/22 Michele Solis APRN, MANAGER MOLECULAR #2 [facility] [address] [place] [address] Nurse Practitioner Advanced Practice Nurse 01/06/20 Frank Gamboa MD #2 [facility] [address] [place] [address] Consulting Physician Urology 09/29/22 Lori Osborn MD #2 [facility] [address] [place] [address] Consulting Physician Urology 04/21/23 Joel Valencia APRN, MANAGER MOLECULAR #2 [place] [address] Nurse Practitioner Advanced Practice Nurse 11/21/23 documented as of this encounter
--- OUTSIDE RECORDS SUMMARY | 2024-11-02 14:06 | XMS_ITS | Encounter Summary ---
Author Organization [facility] Address [address] [facility] [place] [address] Phone Care Team Providers Care Tap Grinder Name Role Phone Michele Solis APRN, SHARLENE Unavailable Michele Solis APRN, SHARLENE Primary Care Pr ovider Frank Gamboa MD Unavailable Lori Osborn MD Unavailable [phone] Joel Valencia APRN, IMAGING CLERK Unavailable [phone] Reason for Visit * Reason Onset Date Comments Form Completion 08/08/2024 Advice Only 08/08/2024 Encounter Details Date Type Department Care Team (Late st Contact Info) Description 08/08/2024 Telephone [facility] Central Call Center [address] [place] [address] Michele Solis APRN, IMAGING CLERK #[address] [address] Form Completion; Advice Only Social History Tobacco Use Types Packs/Day Years Used Date Smoking Tobacco: Never Smokeless Tobacco: Never Alcohol Use Standard Drinks/Week Comments No 0 (1 standard drink = 0.6 oz pur e alcohol) [facility] Utilities Answer Date Recorded In the past 12 months has th e electric, gas, oil, or water [employer] threatened to shut off services in your home? No 07/26/2024 Social Connection and Isolation Panel [NHANES] A nswer Date Recorded In a typical week, how many times do you talk on the phone with family, friends, or neighbors? Never 07/26/19 25 How often do you get togethe r with friends or relatives? Never 07/26/2024 How often do you attend chur ch or pentecostal services? Never 07/26/2024 Do you belong to any clubs o r organizations such as congregational groups, unions, fraternal or athletic groups, or [...] Total Score - Questions 1-9 0 06/19 [facility] - [...] were you homeless or living in a [place] [facility] [place] facility (including now)? No 07/26/2024 Education Answer Date [...] to inform office that his employer ([employer]) is requesting more information about patients recent visits and reasons for missing work. Patient would like to talk to someone about this as well as be informed if and when [employer] does call requesting more details. Please call Arjun [phone] Michele Solis APRN, IMAGING CLERK CHECK ATTENDANT documented in this encounter Plan of Treatment Upcoming Encounters Date Type Department Care Team (Late st Contact Info) Description 11/25/2024 10:15 AM CDT Office Visit [facility] #2 [place] [address] Joel Valencia APRN, IMAGING CLERK #[address] [place] [address] 12/24/2024 8:30 AM CDT Office Visit [facility] #2 [place] [address] Michele Solis APRN, IMAGING CLERK #[address] [address] documented as of this encounter Visit Diagnoses Not on filedocumented in this encounter Additional Health Concerns Infection Onset Date Last Indicated Resolved Time Respiratory Rule-Out 09/23/2024 09/23/2024 025 8:28 AM CDT COVID - 19 09/23/2024 09/23/2024 09/23/2024 8:27 AM CDT Assessment Noted Time PHQ-9 Depression Total Score: 0 07/01/19 25 9:16 AM COAT CHECK ATTENDANT documented as of this encounter Care Teams Tap Grinder Relationship Specialty Start Date End Date Michele Solis APRN, SHARLENE #[address] [address] PCP - General Advanced Practice Nurse 08/31/22 Michele Solis APRN, SHARLENE #[address] [address] Nurse Practitioner Advanced Practice Nurse 01/06/20 Frank Gamboa MD #[address] [address] Consulting Physician Urology 09/29/22 Lori Osborn MD #2 [facility] [address] [address] Consulting Physician Urology 04/21/23 Joel Valencia APRN, IMAGING CLERK #[address] [place] [address] Nurse Practitioner Advanced Practice Nurse 11/21/23 documented as of this encounter
--- OUTSIDE RECORDS SUMMARY | 2024-11-02 14:06 | XMS_ITS | Clinical Summary ---
Author Organization [facility] Address [address] [place] [address] Phone Care Team Providers Care Cycle Analyst Name Role Phone Michele Solis APRN, ENGINEER SOILS Unavailable Michele Solis APRN, ENGINEER SOILS Primary Care Pr ovider Frank Gamboa MD Unavailable Lori Osborn MD Unavailable [phone] Joel Valencia APRN, ENGINEER SOILS Unavailable [phone] No known active allergies Medications No known medications Active Problems Problem Noted Date Diagnosed Date Hyperlipidemia 07/14/2024 Vitamin D deficiency 07/14/2024 Herpes zoster without complication 07/01/2024 Obesity (BMI 30-39.9) 07/01/2024 Fatigue 07/01/2024 Renal stone 03/31/2020 Encounters Date Type Department Care Team Description 09/25/2024 [facility]phone [facility] [address] [place] [phone] Michele Solis APRN, ENGINEER SOILS Letter for School/Work 09/23/2024 8:15 AM CDT Office Visit [facility] [address] [place] [address] Michele Solis APRN, CNP Acute viral syndrome (Primary Dx); Sore throat; Fever, unspecified fever cause; Generalized body aches Discharge Disposition: Discharged to home or Selfcare 09/23/2024 Travel 08/23/2024 8:15 AM PLUMBING ENGINEERING DRAFTSPERSON Office Visit [facility] [address] [place] [address] Michele Solis APRN, CNP Rash and other nonspecific skin eruption (Primary Dx); Stress and adjustment reaction Discharge Disposition: Discharged to home or Selfcare 08/23/2024 Travel 08/21/[address] [facility] Central Call Center [address] [place] [phone] Michele Solis APRN, CNP Follow-up 08/15/2024 Results Follow-Up [facility] [address] [place] [address] Michele Solis APRN, CNP CT RENAL STONE STUDY (ABDOMEN AND PELVIS W/O CONTRAST) 08/14/2024 5:53 PM PLUMBING ENGINEERING DRAFTSPERSON - 08/14/2024 11:59 PM PLUMBING ENGINEERING DRAFTSPERSON Hospital Encounter [facility] [address] [place] [address] Michele Solis APRN, CNP Discharge Disposition: Discharged to home or Selfcare 08/14/2024 3:00 PM PLUMBING ENGINEERING DRAFTSPERSON E-Visit [facility] [address] [place] [address] Michele Solis APRN, CNP E-Visit for Rash/Burn Discharge Disposition: Discharged to home or Selfcare 08/14/[address] [facility] Central Call Center [address] [place] [phone] Michele Solis APRN, CNP Letter for School/Work 08/14/2024 Travel 08/13/2024 Nurse Triage [facility] Central Call Center [address] [place] [phone] Michele Solis APRN, CNP Advice Only; Rash 08/12/2024 9:30 AM PLUMBING ENGINEERING DRAFTSPERSON Office Visit [facility] [address] [place] [phone] Michele Solis APRN, CNP Rash (Primary Dx); Renal colic Discharge Disposition: Discharged to home or Selfcare 08/12/2024 Travel 08/09/2024 Documentation Only [facility] [address] [place] [phone] Michele Solis APRN, CNP 08/08/2024 Telephone [facility] [address] [place] [phone] Lori Osborn MD 08/08/2024 [facility]phone [facility] [address] [place] [address] Michele oSlis APRN, CNP Form Completion; Advice Only 08/07/[address] [facility] Central Call Center [address] [place] [phone] Michele Solis APRN, CNP Letter for School/Work from Last 3 Months Family History Medical History Relation Name Comments No Known Problems Father No Known Problems Mother Relation Name Status Comments Father Alive Mother Alive Social History Tobacco Use Types Packs/Day Years Used Date Smoking Tobacco: Never Smokeless Tobacco: Never Tobacco Cessation:Counseling Given: Yes Alcohol Use Standard Drinks/Week Comments No 0 (1 standard drink = 0.6 oz pur e alcohol) [facility] Utilities Answer Date Recorded In the past 12 months has e [employer], gas, oil, or water company threatened to [...] any clubs o r organizations such as protestant groups, unions, fraternal or athletic groups, or [...] Total Score - Questions 1-9 0 06/19 [facility] Questionnaire Answer Date [...] any time in the past 12 m [facility], were you homeless or living in a penitentiary (including now)? No 07/26/2024 Education Answer Date [...] Sign Reading Time Taken Comments Blood Pressure 126/68 09/23/2024 8:07 AM CDT Pulse 75 09/23/2024 8:07 AM CDT Temperature 36.5 C (97.7 F) 09/23/2024 8:07 AM CDT Respiratory Rate 12 09/23/2024 8:07 AM CDT Oxygen Saturation 98% 09/23/2024 8:07 AM CDT Inhaled Oxygen Concentration - - Weight 80.9 kg (178 lb 6.4 oz) 09/23/2024 8:07 A M CDT Height 165.1 cm (5' 5 ) 09/23/2024 8:07 AM CDT Body Mass Index 29.69 09/23/2024 8:07 AM CDT Plan of Treatment Upcoming Encounters Date Type Department Care Team (Late st Contact Info) Description 11/25/2024 10:15 AM CDT Office Visit [facility] [address] [place] [phone] Joel Valencia APRN, ENGINEER SOILS [address] [place] [address] 12/24/2024 8:30 AM CDT Office Visit [facility] [place] [address] [place] [phone] Michele Solis APRN, ENGINEER SOILS [address] [place] [address] [address] Health Maintenance Due Date Last Done Comments TdaP Immunization 1990 Hepatitis B Immunization (1 of 3 - 19+ 3-dose series) 2009 SARS-COV-2 Immunization ( - 2023- season) 2024 Influenza Immunization (Seas on Ended) 2025 Respiratory Syncytial Virus (RSV) Immunization (Adult) (1 - 1-dose 75+ series) 2065 Hepatitis C Virus (HCV) Screening Completed 022 Human Papillomavirus (HPV) Immunization Aged Out No longer eligible b ased on patient's age to complete this topic Meningococcal Immunization (ACWY) Aged Out No longer eligible based on patient's age to complete this topic Pneumococcal Immunization Combined Aged Out No longer eligible based on patient's age to complete this topic Rotavirus Immunization Aged Out No lo nger eligible based on patient's age to complete this topic Medical Devices Implanted Type Area Lay Midwife Device Identifier Shelf Expiration Date Model / Serial / Lot Stent Ureteral 6fr 2.1fr 26cm 2 Pigtail Curve 2 Durometer Taper Tip Loprfl Graduated Polaris Ultra - [id number] Implanted:Qty : 1 on 03/31/2020 by Robert Clemons MD at [facility] IMPLANT Left: Ureter [employer] 09/15/2022 [id number] / [id number] / [id number] Procedures Procedure Name Priority Date/Time Associated Diagnosis Comments POC GROUP A STREP BY MOLECULAR Routine 09/23/2024 8:29 AM CDT Sore throat Fever, unspecified fever cause Generalized body aches POC SARS-COV-2 BY MOLECULAR Routine 09/23/2024 8:12 AM CDT Sore throat Fever, unspecified fever cause Generalized body aches POC INFLUENZA A AND B BY MOLECULAR Routine 09/23/2024 8:12 AM CDT Sore throat Fever, unspecified fever cause Generalized body aches CT RENAL STONE STUDY (ABDOMEN AND PELVIS W/O CONTRAST) AMADEO 08/14/2024 6:01 PM PLUMBING ENGINEERING DRAFTSPERSON Renal colic HEPATITIS PANEL ACUTE (AHP) STAT 09/23/2021 3:00 PM CDT from Last 3 Months or Most Recently Relevant to Health Maintenance Results * POC GROUP A STREP BY MOLECULAR (09/23/2024 8:29 AM CDT) STREP A DNA Negative Negative, Invalid PROCEDURE CONTROL Valid Swab 09/23/2024 8:29 AM CDT us Michele Solis APRN, CNP POINT OF CARE TE STING (MANUAL) Final Result * POC SARS-COV-2 BY MOLECULAR (09/23/2024 8:12 AM CDT) SARSCOV2 Negative Negative, INVALID PROCEDURE CONTROL Valid Swab NASOPHARYNGEAL SWAB / Unknown 09/23/2024 8:12 AM CDT us Michele Solis APRN, CNP POINT OF CARE TE STING (MANUAL) Final Result * POC INFLUENZA A AND B BY MOLECULAR (09/23/2024 8:12 AM CDT) INFLUENZA A RNA Negative Negative, Invalid INFLUENZA B RNA Negative Negative, Invalid PROCEDURE CONTROL Valid Swab 09/23/2024 8:12 AM CDT us Michele Solis APRN, CNP POINT OF CARE TE STING (MANUAL) Final Result * CT RENAL STONE STUDY (ABDOMEN AND PELVIS W/O CONTRAST) (08/14/2024 6:01 PM PLUMBING ENGINEERING DRAFTSPERSON) Anatomical Region Laterality Modality Abdomen N/A Computed Tomogra phy 08/14/2024 7:26 PM PLUMBING ENGINEERING DRAFTSPERSON Impressions 08/14/2024 7:28 PM PLUMBING ENGINEERING DRAFTSPERSON IMPRESSION: No acute findings in the abdomen and pelvis. Punctate nonobstructive right renal calculus. Narrative 08/14/2024 7:28 PM PLUMBING ENGINEERING DRAFTSPERSON EXAM DESCRIPTION: CT RENAL STONE STUDY (ABDOMEN [...] Lorraine Cagle M.D. FT: FT Report ID: [id number] Reading Location: [id number] Procedure Note Lorraine Colin MD - 08/14/2024 [...] Lorraine Cagle M.D. FT: FT Report ID: [id number] Reading Location: [place] [address] IMPRESSION: No acute findings in the abdomen and pelvis. Punctate nonobstructive right renal calculus. us Michele Solis CASINO GAMING INSPECTOR, SHARLENE IMG CT ORDERABLE S Final Result * Hepatitis Panel Acute (AHP) (09/23/2021 3:00 PM CDT) HEPATITIS A IGM ANTIBODY NON DETECTED NON DETECTED [facility] ARCH [id number] B 09/24/2021 4:22 PM CDT [facility] Comment: IGM Antibodies to HAV not detected. Does not exclude early acute or recovered HAV infection. HEP B CORE AB (IGM) NON DETECTED NON DETECTED [facility] ARCH [id number] B 09/24/2021 4:22 PM CDT [facility] Comment:IGM anti-HBC not det ected. Does not exclude the possibility of exposure to or infection with HBV. HEPATITIS B SURFACE ANTIGEN NON DETECTED NON DETECTED [facility] ARCH [id number] B 09/24/2021 4:22 PM CDT [facility] Comment:A nonreactive test r esult does not exclude the possibility of exposure to or infection with Hepatitis B virus. A nonreactive test result in individuals with prior exposure to hepatitis B may be due to antigen levels below the detection limit of this assay or lack of antigen reactivity to the antibodies in this assay. hepatitis C antibody 0.12 <1 S/CO [facility] ARCH [id number] B 09/24/2021 4:22 PM CDT [facility] Comment: Signal/Cutoff ratio < 0.79 is Nondetected Signal/Cutoff ratio 0.80-0.99 is Grayzone Signal/Cutoff ratio > 0.99 is Detected Supplemental assays are recommended if signal/cutoff ratio is >/=1.00. Signal/cutoff ratio result >/= 5.00 is 97% predictive of positivity for recombinant immunoblot assay (RIBA) and will be reported to the [place] Department of Public Health as required. Blood Venipuncture / Unknown 09/23/2021 3:00 PM CDT 09/23/2021 4:34 PM CDT us Janna Earl APRN, ENGINEER SOILS HEMATOLOGY ORDERABLES Final Result [facility] [address] [place] [address], from Last 3 Months or Most Recently Relevant to Health Maintenance Insurance [place] [address] Care Teams Cycle Analyst Relationship Specialty Start Date End Date Michlee Solis APRN, SHARLENE [id number] [address] PCP - General Advanced Practice Nurse 08/31/22 Michele Solis APRN, SHARLENE [address] [address] Nurse Practitioner Advanced Practice Nurse 01/06/20 Frank Gamboa MD [address] [address] Consulting Physician Urology 09/29/22 Lori Osborn MD #[address] [address] Consulting Physician Urology 04/21/23 Joel Valencia APRN, ENGINEER SOILS [address] [place] [address] Nurse Practitioner Advanced Practice Nurse 11/21/23
== END 2024-11-01 16:05 | disposition home or self-care (01) ==
PROVIDERS: Emergency Provider Nurse Practitioner Family
DX: R11.2 Nausea with vomiting, unspecified (principal); R19.7 Diarrhea, unspecified
CPT/HCPCS: 99213; G0463

== ENCOUNTER 2025-01-14 14:05 | Emergency (ER) | payer OTHER, SELFPAY ==
[2025-01-14 14:18] VITALS: BP 139/73; PULSE 87; RESP 18; TEMP 36.3; O2SAT 100
--- OUTSIDE RECORDS SUMMARY | 2025-01-14 14:18 | XMS_ITS | Encounter Summary ---
Author Organization [facility] Address [address] [facility] [place] [address] Phone Care Team Providers Care Statistician Mathematical Name Role Phone Michele Solis APRN, HAT IRONER Unavailable Michele Solis APRN, SHARLENE Primary Care Pr ovider Frank Gamboa MD Unavailable Lori Osborn MD Unavailable [phone] Joel Valencia APRN, HAT IRONER Unavailable [phone] Encounter Details Date Type Department Care Team (Late st Contact Info) Description 10/21/2022 Telephone [facility] [address] [place] [address] Michele Solis APRN, HAT IRONER [address] [address] Social History Tobacco Use Types Packs/Day Years [...] as of this encounter Plan of Treatment Not on file documented as of this encounter Visit Diagnoses Not on filedocumented in this encounter Additional Health Concerns Infection Onset Date Last Indicated Resolved Time Respiratory Rule-Out 09/23/2024 09/23/2024 025 8:28 AM CDT COVID - 19 09/23/2024 09/23/2024 09/23/2024 8:27 AM CDT Assessment Noted Time PHQ-9 Depression Total Score: 0 04/02/20 21 9:00 AM CDT documented as of this encounter Care Teams Statistician Mathematical Relationship Specialty Start Date End Date Michele Solis APRN, SHARLENE [address]2 [facility] [address] [place] [address] PCP - General Advanced Practice Nurse 08/31/22 Michele Solis APRN, CNP [address]2 [facility] [address] [place] [address] Nurse Practitioner Advanced Practice Nurse 01/06/20 Frank Gamboa MD [address] [address] Consulting Physician Urology 09/29/22 Lori Osborn MD #2 [facility] [address] [place] [address] Consulting Physician Urology 04/21/23 Joel Valencia, NASRIN, HAT IRONER [address] [place] [id number] Nurse Practitioner Advanced Practice Nurse 11/21/23 documented as of this encounter
--- OUTSIDE RECORDS SUMMARY | 2025-01-14 14:18 | XMS_ITS | Encounter Summary ---
Author Organization [facility] Address [address] [facility] [place] [address] Phone Care Team Providers Care Waterproofing Supervisor Name Role Phone Michele Solis APRN, SHARLENE Unavailable Michele Solis APRN, SHARLENE Primary Care Pr ovider Frank Gamboa MD Unavailable Lori Osborn MD Unavailable [phone] Joel Valencia APRN, MD ALLERGY IMMUNOLOGY Unavailable [phone] Reason for Visit * Reason Onset Date Comments Follow-up 08/21/2024 Encounter Details Date Type Department Care Team (Late st Contact Info) Description 08/21/2024 Telephone [facility] Central Call Center [address] [place] [address] Michele Solis APRN, MD ALLERGY IMMUNOLOGY [address] [address] Follow-up Social History Tobacco Use Types Packs/Day Years Used Date Smoking Tobacco: Never Smokeless Tobacco: Never Alcohol Use Standard Drinks/Week Comments No 0 (1 standard drink = 0.6 oz pur e alcohol) [facility] Utilities Answer Date Recorded In the past 12 months has th e electric, gas, oil, or water [employer] threatened to shut off services in your home? No 07/26/2024 Social Connection and Isolation Panel Answer Date Recorded In a typical week, how many times do you talk on the phone with family, friends, or neighbors? Never 07/26/19 How often do you get togethe r with friends or relatives? Never 07/26/2024 How often do you attend chur ch or advent services? Never 07/26/2024 Do you belong to any clubs o r organizations such as jew groups, unions, fraternal or athletic groups, or [...] Total Score - Questions 1-9 0 06/19 [facility] - Occupational Stress [...] time in the past 12 m [facility], were you homeless or living in a senior living (including now)? No 07/26/2024 Education Answer Date [...] Notes * Telephone Encounter - Sudha Eller V. 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 Patient seen on 08/12 for renal colic rash. Prescribed prednisone. Patient received clearance fromMichele Solis APRN, MD ALLERGY IMMUNOLOGY. Assessment: Patient stating when he returned to [...] Dept Phone 08/23/2024 8:15 AM Michele Solis [facility] - Family Medicine [facility] [phone] Wanted to update provider of current situation. Also requesting excuse from work letter when he is at appointment on Monday for 08/19-08/23. Recommendation: This RN requesting patient to send pictures through Hiri for Michele Solis APRN, SHARLENE To review. Routing to provider to update that patient has not been able to return to work. Discussed utilizing Hiri to: sending Hiri message with photograph during call If any follow up questions, patient requesting gdgtt message. 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 documented as of this encounter Care Teams Waterproofing Supervisor Relationship Specialty Start Date End Date Michele Solis APRN, SHARLENE [address] [address] PCP - General Advanced Practice Nurse 08/31/22 Michele Solis APRN, SHARLENE #2 [facility] [address] [place] [address] Nurse Practitioner Advanced Practice Nurse 01/06/20 Frank Gamboa MD #[address] [address] Consulting Physician Urology 09/29/22 Lori Osborn MD #[address] [place] [address] Consulting Physician Urology 04/21/23 Joel Valencia APRN, MD ALLERGY IMMUNOLOGY [address] [place] [address] Nurse Practitioner Advanced Practice Nurse 11/21/23 documented as of this encounter
--- OUTSIDE RECORDS SUMMARY | 2025-01-14 14:18 | XMS_ITS | Clinical Summary ---
Author Organization [facility] Address [address] [place] [address] Phone Care Team Providers Care Acid Remover Name Role Phone Michele Solis APRN, SHARLENE Unavailable Michele Solis APRN, SHARLENE Primary Care Pr ovider Frank Gamboa MD Unavailable Lori Osborn MD Unavailable [phone] Joel Valencia APRN, SHARLENE Unavailable [phone] No known active allergies Medications tamsulosin (FLOMAX) 0.4 MG Capsule Take 0.4 mg by mouth daily. Active HYDROcodone-lucas taminophen (NORCO) 5-325 MG TabletIndicatio ns:Nephrolithia sis Take 1 Tablet by mouth every 4 hours as needed for Moderate or more severe pain. 18 Tablet 11/29/2024 Active ondansetron (ZOFRAN) 4 MG TabletIndicatio ns:Nephrolithia sis Take 1 Tablet by mouth every 8 hours as needed for Nausea - 1st line. 15 Tablet 1 11/29/2024 Active Active Problems Problem Noted Date Diagnosed Date Hyperlipidemia 07/14/2024 Vitamin D deficiency 07/14/2024 Herpes zoster without complication 07/01/2024 Obesity (BMI 30-39.9) 07/01/2024 Fatigue 07/01/2024 Renal stone 03/31/2020 Encounters Date Type Department Care Team Description 12/26/2024 [facility]phone [facility] [address] [place] [address] [phone] Michele Solis APRN, SHARLENE Advice Only; Form Completion 12/12/2024 Nurse Triage [facility] [address] [place] [address] [phone] Michele Solis APRN, SHARLENE Diarrhea 11/29/2024 2:00 PM CDT [facility] [place] [facility] [place] [phone] Michele Solis APRN, SHARLENE Nephrolithiasis (Primary Dx) Discharge Disposition: Discharged to home or Selfcare 11/29/2024 Travel 11/21/2024 [place]phone [facility] [place] [phone] Michele Solis APRN, SHARLENE 11/07/2024 [facility]phone [facility] [address] [place] [address] [phone] Michele Solis APRN, LIFE SCIENCES INSTRUCTOR Form Completion 11/07/2024 Telephone [facility] [address] [place] [address] [phone] Michele Solis APRN, SHARLENE Letter for School/Work 11/06/2024 9:15 AM CDT [facility] [place] [facility] [address] [place] [phone] Michele Solis APRN, SHARLENE Renal colic (Primary Dx) Discharge Disposition: Discharged to home or Selfcare 11/05/2024 8:13 AM CDT - 11/05/2024 10:53 AM CDT [facility] [address] [place] [phone] Jaziel Connors MD Right flank pain Discharge Disposition: Discharged to home or Selfcare 11/05/2024 Travel from Last 3 Months Family History Medical History Relation Name Comments No Known Problems Father No Known Problems Mother Relation Name Status Comments Father Alive Mother Alive Social History Tobacco Use Types Packs/Day Years Used Date Smoking Tobacco: Never Smokeless Tobacco: Never Tobacco Cessation:Counseling Given: No Alcohol Use Standard Drinks/Week Comments No 0 (1 standard drink = 0.6 oz pur e alcohol) [facility] Utilities Answer Date Recorded In the past 12 months has e electric, gas, oil, or water company threatened to shut off services in your home? No 07/26/2024 Social Connection and Isolation Panel Answer Date Recorded In a typical week, how many times do you talk on the phone with family, friends, or neighbors? Never 07/26/19 How often do you get togethe r with friends or relatives? Never 07/26/2024 How often do you attend [facility] or scientology services? Never 07/26/2024 Do you belong to any clubs o r organizations such as synagogue groups, unions, fraternal or athletic groups, or [...] Total Score - Questions 1-9 0 06/19 [facility] of Occupat ional Health - Occupational Stress [...] any time in the past 12 m [facility], were you homeless or living in a alf (including now)? No 07/26/2024 Education Answer Date [...] Sign Reading Time Taken Comments Blood Pressure 132/74 11/29/2024 1:49 PM CDT Pulse 93 11/29/2024 1:49 PM CDT Temperature 36.4 C (97.6 F) 11/29/2024 1:49 PM CDT Respiratory Rate 16 11/29/2024 1:49 PM CDT Oxygen Saturation 99% 11/29/2024 1:49 PM CDT Inhaled Oxygen Concentration - - Weight 78.9 kg (174 lb) 11/29/2024 1:49 PM CDT Height 165.1 cm (5' 5) 11/29/2024 1:49 PM CDT Body Mass Index 28.96 11/29/2024 1:49 PM CDT Plan of Treatment Health Maintenance Due Date Last Done Comments TdaP Immunization 1990 Human Papillomavirus (HPV) Immunization (1 - Male 3-dose series) 2005 Hepatitis B Immunization (1 of 3 - 19+ 3-dose series) 2009 SARS-COV-2 Immunization ( - 2023- season) 2024 Influenza Immunization (#1) 2025 Respiratory Syncytial Virus (RSV) Immunization (Adult) [...] this topic Medical Devices Implanted Type Area Campaign Management Senior Manager Device Identifier Shelf Expiration Date Model / Serial / Lot Stent Ureteral 6fr 2.1fr 26cm 2 Pigtail Curve 2 Durometer Taper Tip Loprfl Graduated Polaris Ultra - [id number] Implanted:Qty : 1 on 03/31/2020 by Robert Clemons MD at [facility] IMPLANT Left: Ureter [employer] 09/15/2022 [id number] / [id number] / [id number] Procedures Procedure Name Priority Date/Time Associated Diagnosis Comments POCT UA AUTOMATED W/O MICRO Routine 11/29/2024 2:33 PM CDT Nephrolithiasis URINALYSIS REFLEX IF INDICATED BY ABNORMAL RESULTS STAT 11/05/2024 9:16 AM CDT XR ABDOMEN KUB FLAT PLATE STAT 11/05/2024 9:04 AM CDT GOLD TOP TUBE STAT 11/05/2024 8:25 AM CDT CBC WITH AUTO DIFFERENTIAL STAT 11/05/2024 8:25 AM CDT EXTRA TUBES STAT 11/05/2024 8:25 AM CDT BASIC METABOLIC PANEL W/ CALCIUM TOTAL STAT 11/05/2024 8:25 AM CDT COMPLETE BLOOD COUNT (CBC) WITH DIFF STAT 11/05/2024 8:25 AM CDT HEPATITIS PANEL ACUTE (AHP) STAT 09/23/2021 3:00 PM CDT from Last 3 Months or Most Recently Relevant to Health Maintenance Results * POCT UA AUTOMATED W/O MICRO (11/29/2024 2:33 PM CDT) Pathologist [facility] POC UA SPECIFIC GRAVITY 1.010 URINE PH 8.0 5.0 - 9.0 POC URINE LEUKOCYTES Negative Negative Yoly/uL POC URINE NITRITE Negative Negative POC URINE PROTEIN Negative Negative mg/dL POC URINE GLUCOSE Norm Negative, Norm mg/dL POC URINE KETONE Negative Negative mg/dL POC URINE UROBILINOGEN Norm Norm, 0.2 E.U./dL (mg/dL), 1 E.U./dL (mg/dL) POC URINE BILIRUBIN Negative Negative mg/dL POC URINE BLOOD INSTRUMENT Negative Negative Alfredo/uL POC URINE COLOR Dark Yellow POC URINE CLARITY Clear Urine 11/29/2024 2:33 PM CDT us Michele Solis AUTHOR, LIFE SCIENCES INSTRUCTOR POINT OF CARE TE STING (MANUAL) Final Result * (ABNORMAL) Urinalysis w/ Reflex (11/05/2024 9:16 AM CDT) SPECIFIC GRAVITY 1.010 1.003 - 1.030 11/05/2024 10:04 AM CDT [facility] URINE PH 7.0 5.0 - 9.0 11/05/2024 10:04 AM CDT [facility] WBC ESTERASE 25 /ul(A) Negative 11/05/2024 10:04 AM CDT [facility] NITRITE Negative Negative 11/05/2024 10:04 AM CDT [facility] PROTEIN, RANDOM URINE 100 mg/dL(A) Negative 11/05/2024 10:04 AM CDT [facility] URINE GLUCOSE, QUAL Negative Negative 11/05/2024 10:04 AM CDT [facility] URINE KETONES Negative Negative 11/05/2024 10:04 AM CDT [facility] UROBILINOGEN Normal Normal mg/dL 11/05/2024 10:04 AM CDT [facility] URINE BLOOD 250 /uL(A) Negative alfredo/ul 11/05/2024 10:04 AM CDT [facility] URINALYSIS COLOR Dark Red 11/06/19 10:04 AM CDT [facility] URINALYSIS CLARITY Very Cloudy 11/05/2024 10:04 AM CDT [facility] WBC (Urine) 0-5 Negative, 0-5 /hpf 11/05/2024 10:04 AM CDT [facility] URINE RBC'S Packed(A) Negative, 0-2 /hpf 11/05/2024 10:04 AM CDT [facility] EPITHELIAL CELLS Negative /lpf 11/06/19 10:04 AM CDT [facility] BACTERIA, URINE Few(A) Negative /hpf 11/05/2024 10:04 AM CDT [facility] Urine URINE SPECIMEN / Unknown Non-Phlebotomy Collection / Unknown 11/05/2024 9:16 AM CDT 11/05/2024 9:17 AM CDT us Jaziel Connors MD URINE ORDERABLES Final Result [facility] [address] [place] [address] * XR ABDOMEN KUB FLAT PLATE (11/05/2024 9:04 AM CDT) Anatomical Region Laterality Modality Abdomen N/A Digital Radiogra phy 11/05/2024 9:27 AM CDT Impressions 11/05/2024 9:30 AM CDT IMPRESSION: No definite evidence of bowel obstruction. No definite evidence of calcification overlying the bilateral renal shadows to suggest nephrolithiasis. Narrative 11/05/2024 9:30 AM CDT EXAM DESCRIPTION: XR ABDOMEN KUB FLAT PLATE REASON FOR STUDY: c/o right flank pain radiating into abdomen with nausea and vomiting starting 1 hour prior to arrival. Patient reports history of kidney stones. Denies difficulty urinating. TECHNIQUE: Single frontal radiographic view of the abdomen. COMPARISON: 08/14/2024 FINDINGS: There is no definite evidence of a bowel obstruction. There is wvql-ps-gymrnhms amount of retained fecal debris in the colon, which is most significant proximally. The bilateral renal shadows are obscured by overlying bowel gas. There is no definite evidence of calcification overlying the bilateral renal shadows to suggest nephrolithiasis. The osseous structures are acutely grossly unremarkable. THIS IS AN ELECTRONICALLY VERIFIED FINAL REPORT 11/05/2024 9:27 AM - Electronically signed by Osmar Tobar D.O. PS: PS Report ID: [id number] Reading Location: [id number] Procedure Note Osmar Tobar DO - 11/05/2024 EXAM DESCRIPTION: XR ABDOMEN KUB FLAT PLATE REASON FOR STUDY: c/o right flank pain radiating into abdomen with nausea and vomiting starting 1 hour prior to arrival. Patient reports history of kidney stones. Denies difficulty urinating. TECHNIQUE: Single frontal radiographic view of the abdomen. COMPARISON: 08/14/2024 FINDINGS: There is no definite evidence of a bowel obstruction. There is jagc-sg-ewnrjuwp amount of retained fecal debris in the colon, which is most significant proximally. The bilateral renal shadows are obscured by overlying bowel gas. There is no definite evidence of calcification overlying the bilateral renal shadows to suggest nephrolithiasis. The osseous structures are acutely grossly unremarkable. THIS IS AN ELECTRONICALLY VERIFIED FINAL REPORT 11/05/2024 9:27 AM - Electronically signed by Osmar Toabr D.O. PS: PS Report ID: [id number] Reading Location: [place] [address] IMPRESSION: No definite evidence of bowel obstruction. No definite evidence of calcification overlying the bilateral renal shadows to suggest nephrolithiasis. Jaziel Connors MD IMG DIAGNOSTIC ORDERAB LES Final Result * Gold Top Tube (11/05/2024 8:25 AM CDT) Blood No Phlebotomy Charged / Unknown 11/05/2024 8:25 AM CDT 11/05/2024 8:42 AM CDT Jaziel Connors MD CHEMISTRY ORDERABLES F inal Result [facility] [address] [place] [address] * (ABNORMAL) CBC with Auto Differential (11/05/2024 8:25 AM CDT) WBC 6.73 4.00 - 12.00 10(3)/mcL 11/05/2024 8:44 AM CDT [facility] RBC 5.55 4.40 - 5.80 10(6)/mcL 11/05/2024 8:44 AM CDT [facility] HEMOGLOBIN (HGB) 15.7 13.0 - 16.5 g/dL 11/05/2024 8:44 AM CDT [facility] HEMATOCRIT (HCT) 46.1 38.0 - 50.0 % 11/05/2024 8:44 AM CDT [facility] MCV 83.1 82.0 - 96.0 fL 11/05/2024 8:44 AM CDT [facility] MCH 28.3 26.0 - 32.0 pg 11/05/2024 8:44 AM CDT [facility] MCHC 34.1 31.0 - 36.0 g/dL 11/05/2024 8:44 AM CDT [facility] PLATELET COUNT 202 140 - 440 10(3)/[facility] 11/05/2024 8:44 AM CDT [facility] RDW 12.0 11.8 - 15.5 % 11/05/2024 8:44 AM CDT [facility] MPV 10.1 8.0 - 12.6 fL 11/05/2024 8:44 AM CDT [facility] NEUTROPHILS 35.3(L) 40.0 - 68.0 % 11/05/2024 8:44 AM CDT [facility] LYMPHOCYTES 52.7(H) 19.0 - 49.0 % 11/05/2024 8:44 AM CDT [facility] MONOCYTES 8.9 3.0 - 13.0 % 11/05/2024 8:44 AM CDT [facility] EOSINOPHILS 2.4 0.0 - 8.0 % 11/05/2024 8:44 AM CDT [facility] BASOPHILS 0.7 0.0 - 1.0 % 11/05/2024 8:44 AM CDT [facility] ABSOLUTE NEUTROPHILS 2.37 1.40 - 5.30 10(3)/mcL 11/05/2024 8:44 AM CDT [facility] ABSOLUTE LYMPHOCYTES 3.55(H) 0.90 - 3.30 10(3)/[facility] 11/05/2024 8:44 AM CDT [facility] ABSOLUTE MONOCYTES 0.60 0.10 - 0.90 10(3)/[facility] 11/05/2024 8:44 AM CDT [facility] ABSOLUTE EOSINOPHIL 0.16 0.00 - 0.50 10(3)/[facility] 11/05/2024 8:44 AM CDT [facility] ABSOLUTE BASOPHILS 0.05 0.00 - 0.10 10(3)/[facility] 11/05/2024 8:44 AM CDT [facility] NRBC PER 100 WBC 0 11/06/19 8:44 AM CDT [facility] Blood Venipuncture / Unknown 11/05/2024 8:25 AM CDT 11/05/2024 8:41 AM CDT us Jaziel Connors MD HEMATOLOGY ORDERABLES Final Result [facility] [address] [place] [address] * (ABNORMAL) BMP w/ Ca (11/05/2024 8:25 AM CDT) SODIUM 140 136 - 145 mmol/L 11/05/2024 9:00 AM CDT [facility] POTASSIUM 4.1 3.5 - 5.1 mmol/L 11/05/2024 9:00 AM CDT [facility] CHLORIDE 108(H) 98 - 107 mmol/L 11/05/2024 9:00 AM CDT [facility] CO2, VENOUS 24 22 - 30 mmol/L 11/05/2024 9:00 AM CDT [facility] ANION GAP 12.1 <18.0 mmol/L 11/05/2024 9:00 AM CDT [facility] GLUCOSE 93 70 - 99 mg/dL 11/05/2024 9:00 AM CDT [facility] BUN 10 9 - 21 mg/dL 11/05/2024 9:00 AM CDT [facility] CREATININE, BLOOD 0.81 0.70 - 1.30 mg/dL 11/05/2024 9:00 AM CDT [facility] BUN/CREATININE RATIO 12 12 - 20 ratio 11/05/2024 9:00 AM CDT [facility] CALCIUM 9.2 8.7 - 10.5 mg/dL 11/05/2024 9:00 AM CDT [facility] GFR, ESTIMATED >60 >=60 11/05/2024 9:00 AM CDT [facility] Comment: Creatinine Clearance is the preferred criteria for selecting drug dose adjustments in renally impaired patients. The GFR is provided as additional pertinent clinical information. GFR is reported in mL/min/1.73 sq m. Calculation based on the Chronic Kidney Disease Epidemiology Collaboration (CKD- EPI) equation refit without adjustment for race. GFR, EST. >60 >=60 025 9:00 AM CDT [facility] GFR, EST. NONAFRICAN >60 >=60 11/05/2024 9:00 AM CDT [facility] Blood Venipuncture / Unknown 11/05/2024 8:25 AM CDT 11/05/2024 8:41 AM CDT us Jaziel Connors MD CHEMISTRY ORDERABLES F inal Result [facility] [address] [place] [address] * Hepatitis Panel Acute (AHP) (09/23/2021 3:00 PM CDT) HEPATITIS A IGM ANTIBODY NON DETECTED NON DETECTED [place] [id number] 09/24/2021 4:22 PM CDT [facility] Comment: IGM Antibodies to HAV not detected. Does not exclude early acute or recovered HAV infection. HEP B CORE AB (IGM) NON DETECTED NON DETECTED [place] [id number] 09/24/2021 4:22 PM CDT [facility] Comment:IGM anti-HBC not det ected. Does not exclude the possibility of exposure to or infection with HBV. HEPATITIS B SURFACE ANTIGEN NON DETECTED NON DETECTED [place] [id number] 09/24/2021 4:22 PM CDT [facility] Comment:A nonreactive test r esult does not exclude the possibility of exposure to or infection with Hepatitis B virus. A nonreactive test result in individuals with prior exposure to hepatitis B may be due to antigen levels below the detection limit of this assay or lack of antigen reactivity to the antibodies in this assay. hepatitis C antibody 0.12 <1 S/CO [facility] ARCH [id number] 09/24/2021 4:22 PM CDT [facility] Comment: Signal/Cutoff ratio < 0.79 is Nondetected Signal/Cutoff ratio 0.80-0.99 is Grayzone Signal/Cutoff ratio > 0.99 is Detected Supplemental assays are recommended if signal/cutoff ratio is >/=1.00. Signal/cutoff ratio result >/= 5.00 is 97% predictive of positivity for recombinant immunoblot assay (RIBA) and will be reported to the [place] Department of Public Health as required. Blood Venipuncture / Unknown 09/23/2021 3:00 PM CDT 09/23/2021 4:34 PM CDT us Janna Earl APRN, SHARLENE HEMATOLOGY ORDERABLES Final Result Performing Organization Address City/State/[facility] Co de Phone Number [facility] [address] [place] [address], from Last 3 Months or Most Recently Relevant to Health Maintenance Insurance [facility] Care Teams Acid Remover Relationship Specialty Start Date End Date Michele Solis APRN, LIFE SCIENCES INSTRUCTOR [address] [address] PCP - General Advanced Practice Nurse 08/31/22 Michele Solis APRN, LIFE SCIENCES INSTRUCTOR #[address] [address] Nurse Practitioner Advanced Practice Nurse 01/06/20 Frank Gamboa MD #2 [facility] [address] [place] [address] Consulting Physician Urology 09/29/22 Lori Osborn MD #[address] [address] Consulting Physician Urology 04/21/23 Joel Valencia APRN, LIFE SCIENCES INSTRUCTOR [address] [place] [address] Nurse Practitioner Advanced Practice Nurse 11/21/23
--- OUTSIDE RECORDS SUMMARY | 2025-01-14 14:18 | XMS_ITS | Encounter Summary ---
Author Organization [facility] Address [address] [facility] [place] [address] Phone Care Team Providers Care Reconciliation Machine Operator Name Role Phone Michele Solis APRN, SHARLENE Unavailable Michele Solis APRN, SHARLENE Primary Care Pr ovider Frank Gamboa MD Unavailable Lori Osborn MD Unavailable [phone] Joel Valencia APRN, FASHION MERCHANDISER Unavailable [phone] Reason for Visit * Reason Onset Date Comments Form Completion 08/08/2024 Advice Only 08/08/2024 Encounter Details Date Type Department Care Team (Late st Contact Info) Description 08/08/2024 Telephone [facility] [address] [place] [phone] Michele Solis APRN, FASHION MERCHANDISER [address] [address] Form Completion; Advice Only Social History Tobacco Use Types Packs/Day Years Used Date Smoking Tobacco: Never Smokeless Tobacco: Never Alcohol Use Standard Drinks/Week Comments No 0 (1 standard drink = 0.6 oz pur e alcohol) [facility] Utilities Answer Date Recorded In the past 12 months has th e Strategy Store, gas, oil, or water [employer] threatened to shut off services in your home? No 07/26/2024 Social Connection and Isolation Panel Answer Date Recorded In a typical week, how many times do you talk on the phone with family, friends, or neighbors? Never 07/26/19 How often do you get togethe r with friends or relatives? Never 07/26/2024 How often do you attend chur ch or moravian services? Never 07/26/2024 Do you belong to any clubs o r organizations such as zoroastrian groups, unions, fraternal or athletic groups, or [...] Total Score - Questions 1-9 0 06/19 [facility] - Occupational Stress Questionnaire [...] to inform office that his employer ([employer]) is requesting more information about patients recent visits and reasons for missing work. Patient would like to talk to someone about this as well as be informed if and when [employer] does call requesting more details. Please call Arjun [phone] Michele Solis APRN, FASHION MERCHANDISER RONMENTAL CONSTRUCTION ENGINEER documented in this encounter Plan of Treatment Not on file documented as of this encounter Visit Diagnoses Not on filedocumented in this encounter Additional Health Concerns Infection Onset Date Last Indicated Resolved Time Respiratory Rule-Out 09/23/2024 09/23/2024 025 8:28 AM CDT COVID - 19 09/23/2024 09/23/2024 09/23/2024 8:27 AM CDT Assessment Noted Time PHQ-9 Depression Total Score: 0 07/01/19 25 9:16 AM ENVIRONMENTAL CONSTRUCTION ENGINEER documented as of this encounter Care Teams Reconciliation Machine Operator Relationship Specialty Start Date End Date Michele Solis APRN, SHARLENE [id number] [address] PCP - General Advanced Practice Nurse 08/31/22 Michele Solis APRN, FASHION MERCHANDISER #[address] [address] Nurse Practitioner Advanced Practice Nurse 01/06/20 Frank Gamboa MD #[address] [address] Consulting Physician Urology 09/29/22 Lori Osborn MD #[address] [address] Consulting Physician Urology 04/21/23 Joel Valencia APRN, FASHION MERCHANDISER [address] [place] [address] Nurse Practitioner Advanced Practice Nurse 11/21/23 documented as of this encounter
--- OUTSIDE RECORDS SUMMARY | 2025-01-14 14:18 | XMS_ITS | Encounter Summary ---
Author Organization [facility] Address [address] [facility] [place] [address] Phone Care Team Providers Care Underwear Finisher Name Role Phone Michele Solis APRN, SHARLENE Unavailable Michele Solis APRN, SHARLENE Primary Care Pr ovider Frank Gamboa MD Unavailable Lori Osborn MD Unavailable [phone] Joel Valencia APRN, TECHNOLOGY OFFICER Unavailable + [phone] Reason for Visit * Reason Onset Date Comments Letter for School/Work 11/07/2024 Encounter Details Date Type Department Care Team (Late st Contact Info) Description 11/07/2024 Telephone [facility] [address] [place] [address] Michele Solis APRN, TECHNOLOGY OFFICER #[address] [address] Letter for School/Work Social History Tobacco Use Types Packs/Day Years Used Date Smoking Tobacco: Never Smokeless Tobacco: Never Alcohol Use Standard Drinks/Week Comments No 0 (1 standard drink = 0.6 oz pur e alcohol) [facility] Utilities Answer Date Recorded In the past 12 months has th e electric, gas, oil, or water [employer] threatened to shut off services in your home? No 07/26/2024 Social Connection and Isolation Panel Answer Date Recorded In a typical week, how many times do you talk on the phone with family, friends, or neighbors? Never 07/26/19 How often do you get togethe r with friends or relatives? Never 07/26/2024 How often do you attend chur ch or temple services? Never 07/26/2024 Do you belong to [...] Total Score - Questions 1-9 0 06/19 [facility] - Occupational Stress Questionnaire Answer Date [...] any time in the past 12 m [facility], were you homeless or living in a prison (including now)? No 07/26/2024 Education Answer Date [...] encounter Miscellaneous Notes * Telephone Encounter - Wanda Sears MA - 11/07/2024 3:13 PM CDT Pt came to the office. Letter printed and given to him. * Telephone Encounter - Michele Solis APRN, SHARLENE - 11/07/2024 8:22 AM CDT That is fine, thanks * Telephone Encounter - Patricia Schilling RN - 11/07/2024 7:18 AM CDT Situation: Letter for work Background: Patient contacting PCP office. Assessment: Patient was seen in the office on 11/06/24 for a kidney stone, per patient he took pain medication around 0300 and then he states he passed the stone around 0700 this morning. Patient is unable to go to work today, because he took pain medication at 0300 and he is unable to have pain medication 8 hours before work. Patient is requesting a letter to return to work on 11/08/24. Recommendation: Please advise and send a message in [employer] when letter is written. Encounter routed to provider to notify. 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 documented as of this encounter Care Teams Underwear Finisher Relationship Specialty Start Date End Date Michele Solis APRN, SHARLENE #[address] [address] PCP - General Advanced Practice Nurse 08/31/22 Michele Solis APRN, TECHNOLOGY OFFICER #[address] [address] Nurse Practitioner Advanced Practice Nurse 01/06/20 Frank Gamboa MD #[address] [address] Consulting Physician Urology 09/29/22 Lori Osborn MD #[address] [address] Consulting Physician Urology 04/21/23 Joel Valencia APRN, TECHNOLOGY OFFICER #[address] [place] [address] Nurse Practitioner Advanced Practice Nurse 11/21/23 documented as of this encounter
--- NOTE | 2025-01-14 14:53 | ED.SKABFB ---
HPI - Skin/Abscess/Foreign Bdy General Chief complaint: Skin/Abscess/Foreign Body Stated complaint: All over rash/throat Time Seen by Provider: 01/14/25 14:53 Source: patient, RN notes reviewed and old records reviewed Mode of arrival: ambulatory Limitations: no limitations History of Present Illness HPI narrative: 37-year-old male presents to the [facility] with a rash to his face, chest and back. 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 Reports that when he was at work he had some tongue and throat swelling. Reports a headache. Patient reports he has had a sore throat as well. Reports that children at home had strep last week. Treatments prior to arrival: none Related Data Home Medications ?Medication ?Instructions ?Recorded ?Confirmed ?Last Taken ?Type tamsulosin 0.4 mg capsule (Flomax) 0.4 mg PO DAILY 06/26/24 08/27/24 Unknown History Allergies Allergy/AdvReac Type Severity Reaction Status Date / Time No Known Allergies Allergy Verified 01/14/25 14:18 Review of Systems Review of Systems: All systems reviewed & are unremarkable except as noted in HPI and below Constitutional: Constitutional: Reports as per HPI and Reports headache(s) ENT: Reports as per HPI and Reports sore throat Cardiovascular: Cardiovascular: Reports no additional cardiovascular complaints, Denies chest pain and Denies dyspnea Respiratory: Respiratory: Reports no additional respiratory complaints, Denies chest congestion, Denies cough and Denies dyspnea Musculoskeletal: Musculoskeletal: Reports no additional musculoskeletal complaints Integumentary/Breasts: Skin/Breast: Reports as per HPI PMFSH Past Medical History Medical History Eczema Kidney stone Surgical History Surgical History No pertinent past surgical history Family History Family History Mother Family history non-contributory Social History Social History Social History: Denies smoking or drinking Smoking status: Never smoker Second hand tobacco smoke exposure: No Alcohol intake: never Substance use: current Substance use type: marijuana Other substance usage details: social Living arrangements: with family Gender identity (if verbalized by the patient): Male Sexual Orientation (if Verbalized by the Patient): Straight or Heterosexual Spiritual care concerns: No Comments At the time of my signature, I reviewed and agree with the nursing past medical, surgical, social, and family history. There is no relevant family history pertinent to the patient complaint. Exam Const: General: cooperative, healthy appearing, comfortable, no acute distress, well developed, alert and well nourished Nutritional Appearance: well nourished Orientation/consciousness: patient oriented x3 Limitations: no limitations HENMT: Head: normal to inspection Ears: hearing grossly normal bilaterally, external ears normal, TM's normal bilaterally, EAC's normal, mastoids normal and no periauricular adenopathy Throat: uvula midline, posterior oropharynx abnormal erythema; no cobblstoning, no edema, no exudates and no lacerations and no uvular edema Eyes: General: appearance normal, both eyes and all related structures Alignment and Position: alignment normal Neck: Neck: normal visual inspection, full ROM, no lymphadenopathy and no meningeal signs Chest: Chest palpation & inspection: normal inspection of the chest Resp: Effort & Inspection: normal respiratory effort and able to speak in complete sentences Auscultation: clear to auscultation bilaterally, no crackles, no rales, no rhonchi and no wheezes Cardio: Rate: regular rate Skin: General skin exam: normal color and no rashes or lesions noted Other: Red raised macular papular rashes to the face, chest and arms most likely dermatitis Neuro: General: patient oriented x3, gait normal, moves all extremities and no meningeal signs Cognition (Neuro): normal cognition Speech: normal speech Gait exam (Neuro): Normal gait present Extrem: General: normal to inspection, full ROM, capillary refill normal and normal gait Psych: Appearance: grossly normal and well kempt Mental Status: mental status grossly normal Speech and movement: Normal speech and movement present and Clear speech present Affect: normal affect Attitude: cooperative Course Course Level of Care: Express Care Visit Vital Signs Vital signs: Vital Signs Temperature 97.3 F L 01/14/25 14:18 Pulse Rate 87 01/14/25 14:18 Respiratory Rate 18 01/14/25 14:18 Blood Pressure 139/73 01/14/25 14:18 Pulse Oximetry 100 01/14/25 14:18 Oxygen Delivery Room Air 01/14/25 14:18 Temperature 97.3 F L 01/14/25 14:18 Pulse Rate 87 01/14/25 14:18 Respiratory Rate 18 01/14/25 14:18 Blood Pressure 139/73 01/14/25 14:18 Pulse Oximetry 100 01/14/25 14:18 Oxygen Delivery Room Air 01/14/25 14:18 Reviewed MDM - Skin/Abscess/Foreign Bdy MDM Narrative Medical decision making narrative: Patient sitting in exam room. Patient is nontoxic, vitals stable. Patient presents with a sore throat, strep test negative, will culture Patient also has a rash due to unknown cause, will cover with sobs-nem-[id number] products, prednisone. No other acute findings noted on exam. Discussed continuing [id number] products, work note given. Patient is appropriate for outpatient treatment with close follow-up Discharge instructions reviewed with patient, as well as provided in writing per nursing staff. The instructions also include specific and strict return/GO TO THE ER as well as f/u information. All questions have been answered, and the patient deny any further questions with discharge and discharge plan. Some parts of this dictation were generated by voice recognition software and may contain typographical and/or grammatical inaccuracies. Differential Diagnosis Differential diagnosis: Likely abscess of skin or subcutaneous tissue, urticaria, allergic reaction to drug, cellulitis, eczema, insect bites and contact dermatitis Lab Data Labs: Lab Results 01/14/25 Range/Units 15:12 POC Grp A Strep Screen Negative (Negative) Reviewed Critical Care Time Critical Care Time Critical Care Time: No Discharge Plan Discharge Clinical Impression: Dermatitis Patient Disposition: Home Condition: Stable Instructions: Antibiotic Form, Dermatitis (ED) Additional Instructions: The most important part of your care is follow up with Primary care provider. Take Benadryl 25 mg every 8 hours for itching Take Zyrtec 10mg every day Take Pepcid 20mg daily for 7 days Take the steroids starting today, next dose will be in the morning Avoid hot showers, Take cool showers. Hot showers will make rashes worse Apply cool compresses every 2-3 hours for 15 minutes Go to the ER for new or worsening symptoms such as shortness of breath. Your rapid strep swab was negative today at [facility]. A throat culture will be sent to the laboratory for further testing. If the test is positive, you will receive a phone call within 48 hours and an appropriate antibiotic will be initiated at that time. -Eat and drink things that are easy to swallow, like tea or soup, or popsicles. -Oral rinses such as: Salt water gargles and/or may use topical anesthetic (eg. Chloraseptic spray) or lozenges to relieve dryness or throat pain). -Frequent hand washing or hand primary care physician is one of the best ways to prevent spread of infection. -Using a vaporizer or humidifier at night will also help thin secretions and help with coughing up phlegm. -Follow up with primary care provider in 7-10 days if condition is not improving - For new or worsening symptoms go directly to the nearest ER Patient Language: Citizen Of [place] Prescriptions: New prednisone 20 mg tablet See Rx Instructions .Route .COMPLEX Qty: 18 0RF Rx Instructions: Take 60 mg daily for 3 days, 40 mg daily for 3 days, 20 mg daily for 3 days No Action tamsulosin [Flomax] 0.4 mg capsule 0.4 mg PO DAILY (DME) [employer]Dx Tyfast [id number] Test Kit See Rx Instructions .Route Qty: 1 0RF Rx Instructions: As directed Follow-up/Referrals: PHYSICIAN NOT ON STAFF,NONSTAFF [Primary Care Provider] - Stand Alone Forms: Work/School Release IP Time of Disposition: 15:16
[2025-01-14 15:14] LABS: EDSTREPNEGPOS1 Negative (Negative)
== END 2025-01-14 15:23 | disposition home or self-care (01) ==
PROVIDERS: Emergency Provider Nurse Practitioner
DX: L30.9 Dermatitis, unspecified (principal)
CPT/HCPCS: 87081; 87880; 99213; G0463

== ENCOUNTER 2025-02-26 16:06 | Emergency (ER) | payer OTHER, SELFPAY ==
--- OUTSIDE RECORDS SUMMARY | 2025-02-26 16:08 | XMS_ITS | Encounter Summary ---
Author Organization [facility] Address [address] [facility] [place] [address] Phone Care Team Providers Care Machine Skiver Name Role Phone Michele Solis APRN, RECOIL SPRING WINDER Unavailable Michele Solis APRN, SHARLENE Primary Care Pr ovider Frank Gamboa MD Unavailable Lori Osborn MD Unavailable [phone] Joel Valencia APRN, RECOIL SPRING WINDER Unavailable [phone] Encounter Details Date Type Department Care Team (Late st Contact Info) Description 10/21/2022 Telephone [facility] [address] [place] [address] Michele Solis APRN, RECOIL SPRING WINDER #[address] [address] Social History Tobacco Use Types Packs/Day Years [...] documented as of this encounter Care Teams Machine Skiver Relationship Specialty Start Date End Date Michele Solis APRN, SHARLENE #2 [facility] [address] [place] [address] PCP - General Advanced Practice Nurse 08/31/22 Michele Solis APRN, CNP #2 [facility] [address] [place] [address] Nurse Practitioner Advanced Practice Nurse 01/06/20 Frank Gamboa MD #[address] [address] Consulting Physician Urology 09/29/22 Lori Osborn MD #2 [facility] [address] [place] [address] Consulting Physician Urology 04/21/23 Jole Valencia, NASRIN, RECOIL SPRING WINDER #2 [place] [id number] Nurse Practitioner Advanced Practice Nurse 11/21/23 documented as of this encounter
--- OUTSIDE RECORDS SUMMARY | 2025-02-26 16:08 | XMS_ITS | Encounter Summary ---
Author Organization [facility] Address [address] [place] [address] Phone Care Team Providers Care Transformer Assembler Name Role Phone Michele Solis APRN, SHARLENE Unavailable Michele Solis APRN, SHARLENE Primary Care Pr ovider Frank Gamboa MD Unavailable Lori Osborn MD Unavailable [phone] Joel Valencia APRN, LEGAL MANAGER Unavailable [phone] Reason for Visit * Reason Onset Date Comments Letter for School/Work 11/07/2024 Encounter Details Date Type Department Care Team (Late st Contact Info) Description 11/07/2024 Telephone [facility] [address] [place] [address] Michele Solis APRN, LEGAL MANAGER #[address] [address] Letter for School/Work Social History Tobacco Use Types Packs/Day Years Used Date Smoking Tobacco: Never Smokeless Tobacco: Never Alcohol Use Standard Drinks/Week Comments No 0 (1 standard drink = 0.6 oz pur e alcohol) [facility] Utilities Answer Date Recorded In the past 12 months has th e electric, gas, oil, or water [employer] threatened to shut off services in your [...] any clubs o r organizations such as yarsanism groups, unions, fraternal or athletic groups, or [...] Total Score - Questions 1-9 0 06/19 [facility] - Occupational Stress Questionnaire Answer Date Recorded [...] time in the past 12 m [facility], were you homeless or living in a usp (including now)? No 07/26/2024 Education Answer Date [...] Please advise and send a message in [employer] when letter is written. Encounter routed to provider to notify. 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 documented as of this encounter Care Teams Transformer Assembler Relationship Specialty Start Date End Date Michele Solis APRN, SHARLENE #[address] [address] PCP - General Advanced Practice Nurse 08/31/22 Michele Solis APRN, LEGAL MANAGER #[address] [address] Nurse Practitioner Advanced Practice Nurse 01/06/20 Frank Gamboa MD #[address] [address] Consulting Physician Urology 09/29/22 Lori Osborn MD #[address] [address] Consulting Physician Urology 04/21/23 Joel Valencia APRN, LEGAL MANAGER #2 [place] [address] Nurse Practitioner Advanced Practice Nurse 11/21/23 documented as of this encounter
--- OUTSIDE RECORDS SUMMARY | 2025-02-26 16:08 | XMS_ITS | Encounter Summary ---
Author Organization [facility] Address [address] [facility] [place] [address] Phone Care Team Providers Care Crutching Contractor Name Role Phone Michele Solis APRN, SHARLENE Unavailable Michele Solis APRN, SHARLENE Primary Care Pr ovider Frank Gamboa MD Unavailable Lori Osborn MD Unavailable [phone] Joel Valencia APRN, SLICING MACHINE OPERATOR Unavailable [phone] Reason for Visit * Reason Onset Date Comments Follow-up 08/21/2024 Encounter Details Date Type Department Care Team (Late st Contact Info) Description 08/21/2024 Telephone [facility] Call Center [address] [place] [address] Michele Solis APRN, SLICING MACHINE OPERATOR #[address] [address] Follow-up Social History Tobacco Use Types Packs/Day Years Used Date Smoking Tobacco: Never Smokeless Tobacco: Never Alcohol Use Standard Drinks/Week Comments No 0 (1 standard drink = 0.6 oz pur e alcohol) [facility] Utilities Answer Date Recorded In the past 12 months has th e electric, gas, oil, or water [email or web address] threatened to shut off services in your home? No 07/26/2024 Social Connection and Isolation Panel Answer Date Recorded In a typical week, how many times do you talk on the phone with family, friends, or neighbors? Never 07/26/19 How often do you get togethe r with friends or relatives? Never 07/26/2024 How often do you attend chur ch or pentecostalism services? Never 07/26/2024 Do you belong to any clubs o r organizations such as evangelical groups, unions, fraternal or athletic groups, or [...] Total Score - Questions 1-9 0 06/19 [facility] - Occupational Stress [...] any time in the past 12 m [facility], were you homeless or living in a senior care (including now)? No 07/26/2024 Education Answer Date [...] Eller V. RN - 08/21/2024 12:29 PM PSYCHIATRIST Situation: Calling about no clearance for work related to rash-work not allowing him to return Background: Patient contacting PCP office. Patient seen on 08/12 for renal colic rash. Prescribed prednisone. Patient received clearance fromMichele Solis APRN, SLICING MACHINE OPERATOR. Assessment: Patient stating when he returned to [...] Dept Phone 08/23/2024 8:15 AM Michele Solis [facility] - Family Medicine [facility] [phone] Wanted to update provider of current situation. Also requesting excuse from work letter when he is at appointment on Monday for 08/19-08/23. Recommendation: This RN requesting patient to send pictures through [employer] for Michele Solis APRN, SHARLENE To review. Routing to provider to update that patient has not been able to return to work. Discussed utilizing [employer] to: sending [employer] message with photograph during call If any follow up questions, patient requesting [employer] message. HIATRIST documented in this encounter Plan of Treatment Not on file documented as of this encounter Visit Diagnoses Not on filedocumented in this encounter Additional Health Concerns Infection Onset Date Last Indicated Resolved Time Respiratory Rule-Out 09/23/2024 09/23/2024 025 8:28 AM CDT COVID - 19 09/23/2024 09/23/2024 09/23/2024 8:27 AM CDT Assessment Noted Time PHQ-9 Depression Total Score: 0 07/01/19 25 9:16 AM PSYCHIATRIST documented as of this encounter Care Teams Crutching Contractor Relationship Specialty Start Date End Date Michele Solis APRN, SHARLENE #[address] [address] PCP - General Advanced Practice Nurse 08/31/22 Michele Solis APRN, SHARLENE #2 [facility] [address] [place] [address] Nurse Practitioner Advanced Practice Nurse 01/06/20 Frank Gamboa MD #[address] [address] Consulting Physician Urology 09/29/22 Lori Osborn MD #[address] [place] [address] Consulting Physician Urology 04/21/23 Joel Valencia APRN, SLICING MACHINE OPERATOR #2 [place] [address] Nurse Practitioner Advanced Practice Nurse 11/21/23 documented as of this encounter
--- OUTSIDE RECORDS SUMMARY | 2025-02-26 16:08 | XMS_ITS | Clinical Summary ---
Author Organization [facility] Address [address] [place] [address] Phone Care Team Providers Care Compliance Representative Dealer Name Role Phone Michele Solis APRN, SALESPERSON NEW CARS Unavailable Michele Solis APRN, SALESPERSON NEW CARS Primary Care Pr ovider Frank Gamboa MD Unavailable Lori Osborn MD Unavailable [phone] Joel Valencia APRN, SALESPERSON NEW CARS Unavailable [phone] Allergies No known active allergies Medications No known medications Active Problems Problem Noted Date Diagnosed Date Malingering 02/05/2025 Hyperlipidemia 07/14/2024 Vitamin D deficiency 07/14/2024 Herpes zoster without complication 07/01/2024 Obesity (BMI 30-39.9) 07/01/2024 Fatigue 07/01/2024 Renal stone 03/31/2020 Encounters Date Type Department Care Team Description 02/05/2025 9:30 AM CDT Office Visit [facility] - Family Medicine [facility] [address] [place] [address] Michele Solis APRN, SALESPERSON NEW CARS Contusion of right hand, subsequent encounter (Primary Dx) Discharge Disposition: Discharged to home or Selfcare 02/05/2025 Travel 01/31/2025 Telephone [facility] [address] [place] [address] Michele Solis APRN, SHARLENE Follow-up 01/31/2025 Documentation Only [facility] [address] [place] [address] Laura Bermudez APRN, SHARLENE 01/31/2025 Results Follow-Up [facility] [address] [place] [address] Laura Bermudez APRN, CNP XR HAND 3 OR MORE VIEWS RIGHT 01/29/2025 Telephone [facility] [address] [place] [phone] Michele Solis APRN, SHARLENE Results; Follow-up; Letter for School/Work 01/29/2025 Documentation Only [facility] [address] [place] [address] Laura Bermudez APRN, SHARLENE 01/28/2025 11:30 AM CDT - 01/28/2025 11:59 PM CDT Hospital Encounter [facility] Radiology [address] [place] [address] Laura Bermudez, NASRIN, SALESPERSON NEW CARS Discharge Disposition: Discharged to home or Selfcare 01/28/2025 9:15 AM CDT Office Visit [facility] [address] [place] [address] Laura Bermudez APRN, SHARLENE Contusion of right hand, initial encounter (Primary Dx) Discharge Disposition: Discharged to home or Selfcare 01/28/2025 Travel 01/27/2025 Nurse Triage [facility] [address] [place] [phone] Michele SolisNASRIN CNP Hand Injury 01/22/2025 2:00 PM CDT Office Visit [facility] [address] [place] [address] Michele Solis APRN, CNP Recurrent nephrolithiasis (Primary Dx); Rash and nonspecific skin eruption Discharge Disposition: Discharged to home or Selfcare 01/22/2025 Travel 12/26/2024 [facility] [address] [place] [phone] Michele Solis APRN, CNP Advice Only; Form Completion 12/12/2024 Nurse Triage [facility] [address] [place] [phone] Michele Solis APRN, CNP Diarrhea 11/29/2024 2:00 PM CDT Office Visit [facility] [address] [place] [address] Michele Solis APRN, CNP Nephrolithiasis (Primary Dx) Discharge Disposition: Discharged to home or Selfcare 11/29/2024 Travel from Last 3 Months Family History Medical History Relation Name Comments No Known Problems Father No Known Problems Mother Relation Name Status Comments Father Alive Mother Alive Social History Tobacco Use Types Packs/Day Years Used Date Smoking Tobacco: Never Smokeless Tobacco: Never Tobacco Cessation:Counseling Given: No Alcohol Use Standard Drinks/Week Comments No 0 (1 standard drink = 0.6 oz pur e alcohol) [facility] Utilities Answer Date Recorded In the past 12 months has [employer], [employer], oil, or water [employer] threatened to shut off services in your home? No 07/26/2024 Social Connection and Isolation Panel Answer Date Recorded In a typical week, how many times do you talk on the phone with family, friends, or neighbors? Never 07/26/19 How often do you get togethe r with friends or relatives? Never 07/26/2024 How often do you attend caro center or orthodox services? Never 07/26/2024 Do you belong to any clubs o r organizations such as anglican groups, unions, fraternal or athletic groups, or [...] Total Score - Questions 1-9 0 06/19 [facility] - Occupational Stress Questionnaire Answer Date [...] any time in the past 12 m [facility], were you homeless or living in a detention (including now)? No 07/26/2024 Education Answer Date [...] Sign Reading Time Taken Comments Blood Pressure 134/82 02/05/2025 9:25 AM CDT Pulse 79 02/05/2025 9:25 AM CDT Temperature 36.2 C (97.2 F) 02/05/2025 9:25 AM CDT Respiratory Rate 16 02/05/2025 9:25 AM CDT Oxygen Saturation 98% 02/05/2025 9:25 AM CDT Inhaled Oxygen Concentration - - Weight 77.6 kg (171 lb) 02/05/2025 9:25 AM CDT Height 165.1 cm (5' 5) 02/05/2025 9:25 AM CDT Body Mass Index 28.46 02/05/2025 9:25 AM CDT Plan of Treatment Health Maintenance Due Date Last Done Comments TdaP Immunization 1990 Hepatitis B Immunization (1 of 3 - 19+ 3-dose series) 2009 Human Papillomavirus (HPV) Immunization (1 - 3-dose SCDM series) 2017 Influenza Immunization (#1) 2025 SARS-COV-2 Immunization ( season) 2025 Respiratory Syncytial Virus (RSV) Immunization (Adult) [...] this topic Medical Devices Implanted Type Area Oracle Applications Analyst Device Identifier Shelf Expiration Date Model / Serial / Lot Stent Ureteral 6fr 2.1fr 26cm 2 Pigtail Curve 2 Durometer Taper Tip Loprfl Graduated Polaris Ultra - [id number] Implanted:Qty : 1 on 03/31/2020 by Robert Clemons MD at [facility] IMPLANT Left: [employer] 09/15/2022 [id number] / [id number] / [id number] Procedures Procedure Name Priority Date/Time Associated Diagnosis Comments XR HAND 3 OR MORE VIEWS RIGHT Routine 01/28/2025 12:17 PM CDT Contusion of right hand, initial encounter POCT UA AUTOMATED W/O MICRO Routine 11/29/2024 2:33 PM CDT Nephrolithiasis HEPATITIS PANEL ACUTE (AHP) STAT 09/23/2021 3:00 PM CDT from Last 3 Months or Most Recently Relevant to Health Maintenance Results * XR HAND 3 OR MORE VIEWS RIGHT (01/28/2025 12:17 PM CDT) Anatomical Region Laterality Modality UPPER EXTREMITY, hand Right Digital Ra diography 01/31/2025 10:3 0 AM CDT Impressions 01/31/2025 10:32 AM CDT IMPRESSION: No acute osseous abnormality. Narrative 01/31/2025 10:32 AM CDT EXAM DESCRIPTION: XR HAND 3 OR MORE VIEWS RIGHT REASON FOR STUDY: pt c/o painin right hand x 1 day after smashing in car door. pt reports most pain is mid meta carpals 3-4 TECHNIQUE: 3 radiographic view(s) of the right hand . COMPARISON: No comparison. FINDINGS: BONES/JOINTS: There is no acute fracture, malalignment or osseous abnormality. The joint spaces are normal. SOFT TISSUES: Within normal limits. THIS IS AN ELECTRONICALLY VERIFIED FINAL REPORT 01/31/2025 10:30 AM - Electronically signed by Ita Mobley M.D. LC: GIRMA Report ID: [id number] Reading Location: [id number] Procedure Note Shelia Mobley MD - 01/31/2025 EXAM DESCRIPTION: XR HAND 3 OR MORE VIEWS RIGHT REASON FOR STUDY: pt c/o painin right hand x 1 day after smashing in car door. pt reports most pain is mid meta carpals 3-4 TECHNIQUE: 3 radiographic view(s) of the right hand . COMPARISON: No comparison. FINDINGS: BONES/JOINTS: There is no acute fracture, malalignment or osseous abnormality. The joint spaces are normal. SOFT TISSUES: Within normal limits. THIS IS AN ELECTRONICALLY VERIFIED FINAL REPORT 01/31/2025 10:30 AM - Electronically signed by Ita Mobley M.D. LC: GIRMA Report ID: [id number] Reading Location: [id number] IMPRESSION: No acute osseous abnormality. Laura Bermudez APRN, CNP IM DIAGNOSTIC ORDERABLES Final Result * POCT UA AUTOMATED W/O MICRO (11/29/2024 2:33 PM CDT) POC UA SPECIFIC GRAVITY 1.010 URINE PH [...] CLARITY Clear Urine 11/29/2024 2:33 PM CDT Michele Solis APRN, CNP POINT OF CARE TE STING (MANUAL) Final Result * Hepatitis Panel Acute (AHP) (09/23/2021 3:00 PM CDT) HEPATITIS A IGM ANTIBODY NON DETECTED NON DETECTED [facility] ARCH [id number] 09/24/2021 4:22 PM CDT [facility] Comment: IGM Antibodies to HAV not detected. Does not exclude early acute or recovered HAV infection. HEP B CORE AB (IGM) NON DETECTED NON DETECTED [facility] ARCH [id number] 09/24/2021 4:22 PM CDT [facility] Comment:IGM anti-HBC not det ected. Does not exclude the possibility of exposure to or infection with HBV. HEPATITIS B SURFACE ANTIGEN NON DETECTED NON DETECTED [facility] ARCH [id number] B 09/24/2021 4:22 PM CDT [facility] Comment:A nonreactive test r esult does not exclude the possibility of exposure to or infection with Hepatitis B virus. A nonreactive test result in individuals with prior exposure to hepatitis B may be due to antigen levels below the detection limit of this assay or lack of antigen reactivity to the antibodies in this assay. hepatitis C antibody 0.12 <1 S/CO [facility] ARCH [id number] B 09/24/2021 4:22 PM CDT [facility] Comment: Signal/Cutoff ratio < 0.79 is [...] CDT 09/23/2021 4:34 PM CDT us Janna Eral APRN, SALESPERSON NEW CARS HEMATOLOGY ORDERABLES Final Result [facility] [address] [place] [address], [place] from Last 3 Months or Most Recently Relevant to Health Maintenance Insurance [facility] Care Teams Compliance Representative Dealer Relationship Specialty Start Date End Date Michele Solis APRN, SALESPERSON NEW CARS [address] [address] PCP - General Advanced Practice Nurse 08/31/22 Michele Solis APRN, SALESPERSON NEW CARS #[address] [address] Nurse Practitioner Advanced Practice Nurse 01/06/20 Frank Gamboa MD [address] [address] Consulting Physician Urology 09/29/22 Lori Osborn MD [address] [address] Consulting Physician Urology 04/21/23 Joel Valencia APRN, SALESPERSON NEW CARS [address] [place] [address] Nurse Practitioner Advanced Practice Nurse 11/21/23
--- OUTSIDE RECORDS SUMMARY | 2025-02-26 16:08 | XMS_ITS | Encounter Summary ---
Author Organization [facility] Address [address] [facility] [place] [address] Phone Care Team Providers Care Weight Guesser Name Role Phone Michele Solis APRN, SHARLENE Unavailable Michele Solis APRN, SHARLENE Primary Care Pr ovider Frank Gamboa MD Unavailable Lori Osborn MD Unavailable [phone] Joel Valencia APRN, SUSTAINABILITY OFFICER Unavailable [phone] Reason for Visit * Reason Onset Date Comments Form Completion 08/08/2024 Advice Only 08/08/2024 Encounter Details Date Type Department Care Team (Late st Contact Info) Description 08/08/2024 Telephone [facility] [address] [place] [address] Michele Solis APRN, SUSTAINABILITY OFFICER [address] [address] Form Completion; Advice Only Social History Tobacco Use Types Packs/Day Years Used Date Smoking Tobacco: Never Smokeless Tobacco: Never Alcohol Use Standard Drinks/Week Comments No 0 (1 standard drink = 0.6 oz pur e alcohol) [facility] Utilities Answer Date Recorded In the past 12 months has th e [employer], gas, oil, or water [employer] threatened to shut off services in your home? No 07/26/2024 Social Connection and Isolation Panel Answer Date Recorded In a typical week, how many times do you talk on the phone with family, friends, or neighbors? Never 07/26/19 How often do you get togethe r with friends or relatives? Never 07/26/2024 How often do you attend chur ch or confucianist services? Never 07/26/2024 Do you belong to any clubs o r organizations such as religion groups, unions, fraternal or athletic groups, or [...] Total Score - Questions 1-9 0 06/19 [facility] - Occupational Stress Questionnaire [...] were you homeless or living in a long term (including now)? No 07/26/2024 Education Answer Date [...] to inform office that his employer ([employer]) is requesting more information about patients recent visits and reasons for missing work. Patient would like to talk to someone about this as well as be informed if and when [employer] does call requesting more details. Please call Arjun [phone] Michele Solis APRN, SUSTAINABILITY OFFICER ATE CHANGE ANALYST documented in this encounter Plan of Treatment Not on file documented as of this encounter Visit Diagnoses Not on filedocumented in this encounter Additional Health Concerns Infection Onset Date Last Indicated Resolved Time Respiratory Rule-Out 09/23/2024 09/23/2024 025 8:28 AM CDT COVID - 19 09/23/2024 09/23/2024 09/23/2024 8:27 AM CDT Assessment Noted Time PHQ-9 Depression Total Score: 0 07/01/19 25 9:16 AM CLIMATE CHANGE ANALYST documented as of this encounter Care Teams Weight Guesser Relationship Specialty Start Date End Date Michele Solis APRN, SHARLENE [id number] [address] PCP - General Advanced Practice Nurse 08/31/22 Michele Solis APRN, SUSTAINABILITY OFFICER [address] [address] Nurse Practitioner Advanced Practice Nurse 01/06/20 Frank Gamboa MD [address] [address] Consulting Physician Urology 09/29/22 Lori Osborn MD [address] [address] Consulting Physician Urology 04/21/23 Joel Valencia APRN, SUSTAINABILITY OFFICER [address] [place] [address] Nurse Practitioner Advanced Practice Nurse 11/21/23 documented as of this encounter
--- NOTE | 2025-02-26 16:16 | ED_ITS ---
HPI - URI/Sore Throat General Chief Complaint: Upper Respiratory Infection Stated Complaint: Body Aches/Sore Throat/Headache Time Seen by Provider: 02/26/25 16:18 Source: patient and RN notes reviewed Mode of arrival: ambulatory Limitations: no limitations History of Present Illness HPI Narrative: 34 y/o male presented for c/o nasal congestion, post nasal drainage, headache and cough. Onset last night. Took Nyquil. Denies sob, wheezing, n/v/d/f/c. MD elicited complaint: cough Related Data Allergies Allergy/AdvReac Type Severity Reaction Status Date / Time No Known Allergies Allergy Verified 01/14/25 14:18 Review of Systems Review of Systems: CONSTITUTIONAL: Endorses malaise, body aches, chills EYES: Denies visual changes, redness, or discharge ENT: Reports rhinorrhea, congestion, denies sinus pain, otalgia, sore throat CARDIOVASCULAR: Denies chest pain, palpitations, edema RESPIRATORY: Reports cough, post nasal drainage. Denies dyspnea GASTROINTESTINAL: Denies abdominal pain, nausea, vomiting, diarrhea SKIN: Denies rash or itching NEUROLOGIC: denies headache PMFSH Past Medical History Medical History Eczema Kidney stone Surgical History Surgical History No pertinent past surgical history Family History Family History Mother Family history non-contributory Social History Social History Social History: Denies smoking or drinking Smoking status: Never smoker Second hand tobacco smoke exposure: No Alcohol intake: never Substance use: current Substance use type: marijuana Other substance usage details: social Living arrangements: with family Gender identity (if verbalized by the patient): Male Sexual Orientation (if Verbalized by the Patient): Straight or Heterosexual Spiritual care concerns: No Exam Narrative: GENERAL: mildly Ill-appearing, nontoxic no acute distress. EYES: conjunctivae clear ENT: Mucous membranes moist. TM pearly vogt with dull light reflex bilaterally; no tragal tenderness. Oropharynx erythematous without lesions or exudate, no drooling, no hoarseness, no trismus, uvula midline. No tripod positioning, muffled voice, soft palate or pharyngeal wall bulging NECK: Supple. No lymphadenopathy CHEST: Clear to auscultation, breath sounds equal. HEART: Regular rate and rhythm. No murmur heard. SKIN: Warm, dry, no rash. NEURO: Alert and oriented x3. PSYCH: Normal mood and affect Course Course Emergency Course: Patient is aware of diagnosis, understands and agrees to treatment plan. Anticipatory guidance given. Patient agrees to follow-up as directed and is aware of reasons to seek care at the emergency department. Portions of this record may have been created with voice recognition software Level of Care: Express Care Visit Vital Signs Vital signs: reviewed MDM - URI/Sore Throat MDM Narrative Medical decision making narrative: Discussed physical exam findings and neg flu covid. Advised supportive measures and signs/symptoms to go to the ER. Pt is appropriate for outpt treatment and f/u. Differential Diagnosis Differential diagnosis: Likely upper respiratory infection, sinusitis and viral infection Discharge Plan Discharge Clinical Impression: Upper respiratory infection Patient Disposition: Home Condition: Stable Instructions: Antibiotic Form, Upper Respiratory Infection (ED) Additional Instructions: Your rapid covid/flu test was negative today. It may be too early to detect the virus, therefore we recommend retesting at home in 1-2 days Continue to follow general precautions: frequent handwashing, wear a mask, isolate/social distance, and avoid crowds if you have a fever. You must be fever free for 24 hours without the use of fever reducing medication (Tylenol/ibuprofen) before returning to work/school/crowds. Recommendations: Flonase spray and Zyrtec (or Claritin/Angela) over the counter Cough syrup may cause drowsiness; avoid driving or take it at night time. Tylenol 1000mg every 8 hours as needed for pain rest, fluids, and increase humidity of the air at home. Follow up with your primary care provider in 1 week. Go to the ER for worsening symptoms or concerns. Patient Language: Croatian Prescriptions: No Action (DME) [employer] Tyfast [id number] Test Kit See Rx Instructions .Route Qty: 1 0RF Rx Instructions: As directed Follow-up/Referrals: PHYSICIAN NOT ON STAFF,NONSTAFF [Primary Care Provider] Stand Alone Forms: Work/School Release IP Time of Disposition: 16:28
[2025-02-26 16:17] VITALS: BP 130/77; PULSE 76; RESP 16; TEMP 36.6; O2SAT 99
[2025-02-26 16:33] LABS: EDCOVIDSCREEN Negative (Negative); EDINFLUASCREEN Negative (Negative); EDINFLUBSCREEN Negative (Negative)
== END 2025-02-26 16:33 | disposition home or self-care (01) ==
PROVIDERS: Emergency Provider Nurse Practitioner Family
DX: J06.9 Acute upper respiratory infection, unspecified (principal); Z20.822 Contact with and (suspected) exposure to COVID-19
CPT/HCPCS: 87426; 87804; 99213; G0463